=== PATIENT | male | born 1950 | race Caucasian/White ===

== ENCOUNTER 2017-08-30 11:04 | Day surgery (SDC) | payer MEDICARE, MEDICAID ==
[~2017-08-30 11:04] MED LIST: ACET1TAB12 PO; CEPH-571 PO; LISI1TAB11 PO; MEMA5TAB PO; ROSU10TA PO; TRAM50TA2 PO; gadopentetate dimeglumine 7.5 MMOL/15 ML syringe ONE
[2017-08-30] MEDS ORDERED: LIDOcaine 2% 5ml jelly ONE (11:27)
== END 2017-08-30 12:09 | disposition home or self-care (01) ==
LOC: WOUND CARE 11:04
PROVIDERS: ATTEND Surgery
DX: E11.621 Type 2 diabetes mellitus with foot ulcer (principal); L97.521 Non-pressure chronic ulcer of other part of left foot limited to breakdown of skin; E11.622 Type 2 diabetes mellitus with other skin ulcer; L97.821 Non-pressure chronic ulcer of other part of left lower leg limited to breakdown of skin; I77.1 Stricture of artery; I70.248 Atherosclerosis of native arteries of left leg with ulceration of other part of lower leg; E11.69 Type 2 diabetes mellitus with other specified complication; M86.672 Other chronic osteomyelitis, left ankle and foot; I25.10 Atherosclerotic heart disease of native coronary artery without angina pectoris; I70.245 Atherosclerosis of native arteries of left leg with ulceration of other part of foot; J44.9 Chronic obstructive pulmonary disease, unspecified; I10 Essential (primary) hypertension; K21.9 Gastro-esophageal reflux disease without esophagitis; E78.00 Pure hypercholesterolemia, unspecified; M19.90 Unspecified osteoarthritis, unspecified site; I87.2 Venous insufficiency (chronic) (peripheral); F10.10 Alcohol abuse, uncomplicated; F41.9 Anxiety disorder, unspecified; F17.210 Nicotine dependence, cigarettes, uncomplicated; F32.9 Major depressive disorder, single episode, unspecified; F03.90 Unspecified dementia, unspecified severity, without behavioral disturbance, psychotic disturbance, mood disturbance, and anxiety; Z79.84 Long term (current) use of oral hypoglycemic drugs; Z79.4 Long term (current) use of insulin; Z72.89 Other problems related to lifestyle; Z95.1 Presence of aortocoronary bypass graft; Z86.73 Personal history of transient ischemic attack (TIA), and cerebral infarction without residual deficits
CPT/HCPCS: 11043; 97597; A6021; A6206; A9579

== ENCOUNTER 2017-09-06 11:02 | Outpatient (CLI) | payer MEDICARE, MEDICAID ==
[~2017-09-06 11:02] MED LIST changes: -gadopentetate dimeglumine 7.5 MMOL/15 ML syringe ONE
[2017-09-06] MEDS ORDERED: gentamicin 0.1% topical ointment 15gm TP SCH (13:50)
== END 2017-09-06 11:53 | disposition home or self-care (01) ==
LOC: WOUND CARE 11:02
PROVIDERS: ATTEND Surgery
DX: E11.622 Type 2 diabetes mellitus with other skin ulcer (principal); L97.821 Non-pressure chronic ulcer of other part of left lower leg limited to breakdown of skin; E11.621 Type 2 diabetes mellitus with foot ulcer; L97.521 Non-pressure chronic ulcer of other part of left foot limited to breakdown of skin; I25.10 Atherosclerotic heart disease of native coronary artery without angina pectoris; I70.248 Atherosclerosis of native arteries of left leg with ulceration of other part of lower leg; I70.245 Atherosclerosis of native arteries of left leg with ulceration of other part of foot; J44.9 Chronic obstructive pulmonary disease, unspecified; I10 Essential (primary) hypertension; K21.9 Gastro-esophageal reflux disease without esophagitis; E11.69 Type 2 diabetes mellitus with other specified complication; M86.672 Other chronic osteomyelitis, left ankle and foot; E78.00 Pure hypercholesterolemia, unspecified; I77.1 Stricture of artery; M19.90 Unspecified osteoarthritis, unspecified site; I87.2 Venous insufficiency (chronic) (peripheral); F10.10 Alcohol abuse, uncomplicated; F41.9 Anxiety disorder, unspecified; F32.9 Major depressive disorder, single episode, unspecified; F17.210 Nicotine dependence, cigarettes, uncomplicated; F03.90 Unspecified dementia, unspecified severity, without behavioral disturbance, psychotic disturbance, mood disturbance, and anxiety; Z95.1 Presence of aortocoronary bypass graft; Z79.4 Long term (current) use of insulin; Z79.84 Long term (current) use of oral hypoglycemic drugs; Z86.73 Personal history of transient ischemic attack (TIA), and cerebral infarction without residual deficits
CPT/HCPCS: 99211; A6021; A6206; A6449

== ENCOUNTER 2017-09-13 10:48 | Day surgery (SDC) | payer MEDICARE, MEDICAID ==
[2017-09-13] MEDS ORDERED: LIDOcaine 2% 5ml jelly ONE (12:33)
[2017-09-13] MEDS ORDERED: hydrocortisone 1% cream 28gm TP ONE (12:56)
[2017-09-13] MEDS ORDERED: gentamicin 0.1% topical ointment 15gm TP ONE (13:40)
== END 2017-09-13 13:40 | disposition home or self-care (01) ==
LOC: WOUND CARE 10:48
PROVIDERS: ATTEND Surgery
DX: I70.248 Atherosclerosis of native arteries of left leg with ulceration of other part of lower leg (principal); I70.245 Atherosclerosis of native arteries of left leg with ulceration of other part of foot; E11.622 Type 2 diabetes mellitus with other skin ulcer; E11.621 Type 2 diabetes mellitus with foot ulcer; L97.821 Non-pressure chronic ulcer of other part of left lower leg limited to breakdown of skin; L97.521 Non-pressure chronic ulcer of other part of left foot limited to breakdown of skin; I77.1 Stricture of artery; I25.10 Atherosclerotic heart disease of native coronary artery without angina pectoris; J44.9 Chronic obstructive pulmonary disease, unspecified; I10 Essential (primary) hypertension; K21.9 Gastro-esophageal reflux disease without esophagitis; E11.69 Type 2 diabetes mellitus with other specified complication; M86.672 Other chronic osteomyelitis, left ankle and foot; E78.00 Pure hypercholesterolemia, unspecified; M19.90 Unspecified osteoarthritis, unspecified site; F03.90 Unspecified dementia, unspecified severity, without behavioral disturbance, psychotic disturbance, mood disturbance, and anxiety; F10.10 Alcohol abuse, uncomplicated; F32.9 Major depressive disorder, single episode, unspecified; F41.9 Anxiety disorder, unspecified; Z72.89 Other problems related to lifestyle; Z95.1 Presence of aortocoronary bypass graft; Z86.73 Personal history of transient ischemic attack (TIA), and cerebral infarction without residual deficits; Z79.4 Long term (current) use of insulin; Z79.84 Long term (current) use of oral hypoglycemic drugs
CPT/HCPCS: 11043; A4414; A6021; A6206; A6446

== ENCOUNTER 2017-09-20 10:55 | Day surgery (SDC) | payer MEDICARE, MEDICAID ==
[~2017-09-20 10:55] MED LIST changes: -CEPH-571 PO
[2017-09-20] MEDS ORDERED: LIDOcaine 2% 5ml jelly ONE (12:05)
[2017-09-20] MEDS ORDERED: gentamicin 0.1% topical ointment 15gm TP ONE (12:14)
== END 2017-09-20 12:34 | disposition home or self-care (01) ==
LOC: WOUND CARE 10:55
PROVIDERS: ATTEND Surgery
DX: I70.245 Atherosclerosis of native arteries of left leg with ulceration of other part of foot (principal); I70.248 Atherosclerosis of native arteries of left leg with ulceration of other part of lower leg; E11.621 Type 2 diabetes mellitus with foot ulcer; E11.622 Type 2 diabetes mellitus with other skin ulcer; L97.521 Non-pressure chronic ulcer of other part of left foot limited to breakdown of skin; L97.821 Non-pressure chronic ulcer of other part of left lower leg limited to breakdown of skin; I77.1 Stricture of artery; M19.90 Unspecified osteoarthritis, unspecified site; I87.2 Venous insufficiency (chronic) (peripheral); I25.10 Atherosclerotic heart disease of native coronary artery without angina pectoris; J44.9 Chronic obstructive pulmonary disease, unspecified; I10 Essential (primary) hypertension; K21.9 Gastro-esophageal reflux disease without esophagitis; E11.69 Type 2 diabetes mellitus with other specified complication; M86.8X8 Other osteomyelitis, other site; E78.00 Pure hypercholesterolemia, unspecified; F03.90 Unspecified dementia, unspecified severity, without behavioral disturbance, psychotic disturbance, mood disturbance, and anxiety; F41.9 Anxiety disorder, unspecified; F10.10 Alcohol abuse, uncomplicated; F32.9 Major depressive disorder, single episode, unspecified; Z79.4 Long term (current) use of insulin; Z72.89 Other problems related to lifestyle; Z86.73 Personal history of transient ischemic attack (TIA), and cerebral infarction without residual deficits; Z95.1 Presence of aortocoronary bypass graft
CPT/HCPCS: 15275; A6209; A6222; A6446; Q4131

== ENCOUNTER 2017-09-27 11:06 | Outpatient (CLI) | payer MEDICARE, MEDICAID ==
[2017-09-27] MEDS ORDERED: gentamicin 0.1% topical ointment 15gm TP ONE (12:17)
== END 2017-09-27 12:36 | disposition home or self-care (01) ==
LOC: WOUND CARE 11:06
PROVIDERS: ATTEND Surgery
DX: E11.622 Type 2 diabetes mellitus with other skin ulcer (principal); L97.221 Non-pressure chronic ulcer of left calf limited to breakdown of skin; E11.621 Type 2 diabetes mellitus with foot ulcer; L97.521 Non-pressure chronic ulcer of other part of left foot limited to breakdown of skin; I70.242 Atherosclerosis of native arteries of left leg with ulceration of calf; I70.245 Atherosclerosis of native arteries of left leg with ulceration of other part of foot; E11.69 Type 2 diabetes mellitus with other specified complication; M86.672 Other chronic osteomyelitis, left ankle and foot; M86.8X8 Other osteomyelitis, other site; I25.10 Atherosclerotic heart disease of native coronary artery without angina pectoris; J44.9 Chronic obstructive pulmonary disease, unspecified; I10 Essential (primary) hypertension; K21.9 Gastro-esophageal reflux disease without esophagitis; E78.00 Pure hypercholesterolemia, unspecified; I77.1 Stricture of artery; F10.10 Alcohol abuse, uncomplicated; F41.9 Anxiety disorder, unspecified; F17.210 Nicotine dependence, cigarettes, uncomplicated; F03.90 Unspecified dementia, unspecified severity, without behavioral disturbance, psychotic disturbance, mood disturbance, and anxiety; F32.9 Major depressive disorder, single episode, unspecified; Z79.84 Long term (current) use of oral hypoglycemic drugs; Z79.4 Long term (current) use of insulin; Z72.89 Other problems related to lifestyle; Z86.73 Personal history of transient ischemic attack (TIA), and cerebral infarction without residual deficits; Z95.1 Presence of aortocoronary bypass graft
CPT/HCPCS: 99215; A6021; A6206; A6446

== ENCOUNTER 2017-10-04 11:09 | Day surgery (SDC) | payer MEDICARE, MEDICAID ==
[2017-10-04] MEDS ORDERED: LIDOcaine 2% 5ml jelly ONE (11:30)
[2017-10-04] MEDS ORDERED: gentamicin 0.1% topical ointment 15gm TP ONE (11:58)
== END 2017-10-04 12:13 | disposition home or self-care (01) ==
LOC: WOUND CARE 11:09
PROVIDERS: ATTEND Surgery
DX: E11.622 Type 2 diabetes mellitus with other skin ulcer (principal); L97.221 Non-pressure chronic ulcer of left calf limited to breakdown of skin; E11.621 Type 2 diabetes mellitus with foot ulcer; L97.521 Non-pressure chronic ulcer of other part of left foot limited to breakdown of skin; I70.242 Atherosclerosis of native arteries of left leg with ulceration of calf; I70.245 Atherosclerosis of native arteries of left leg with ulceration of other part of foot; E11.69 Type 2 diabetes mellitus with other specified complication; M86.672 Other chronic osteomyelitis, left ankle and foot; M86.8X8 Other osteomyelitis, other site; I25.10 Atherosclerotic heart disease of native coronary artery without angina pectoris; J44.9 Chronic obstructive pulmonary disease, unspecified; I10 Essential (primary) hypertension; K21.9 Gastro-esophageal reflux disease without esophagitis; E78.00 Pure hypercholesterolemia, unspecified; I77.1 Stricture of artery; F10.10 Alcohol abuse, uncomplicated; F41.9 Anxiety disorder, unspecified; F17.210 Nicotine dependence, cigarettes, uncomplicated; F03.90 Unspecified dementia, unspecified severity, without behavioral disturbance, psychotic disturbance, mood disturbance, and anxiety; F32.9 Major depressive disorder, single episode, unspecified; Z79.84 Long term (current) use of oral hypoglycemic drugs; Z79.4 Long term (current) use of insulin; Z72.89 Other problems related to lifestyle; Z86.73 Personal history of transient ischemic attack (TIA), and cerebral infarction without residual deficits; Z95.1 Presence of aortocoronary bypass graft
CPT/HCPCS: 15275; A6021; A6206; A6209; Q4131

== ENCOUNTER 2017-10-11 11:15 | Day surgery (SDC) | payer MEDICARE, MEDICAID ==
[2017-10-11] MEDS ORDERED: LIDOcaine 2% 5ml jelly ONE (11:35)
[2017-10-11] MEDS ORDERED: gentamicin 0.1% topical ointment 15gm TP ONE (12:01)
[2017-10-11] MEDS ORDERED: hydrocortisone 1% cream 28gm TP ONE (12:01)
== END 2017-10-11 12:17 | disposition home or self-care (01) ==
LOC: WOUND CARE 11:15
PROVIDERS: ATTEND Surgery
DX: E11.622 Type 2 diabetes mellitus with other skin ulcer (principal); L97.221 Non-pressure chronic ulcer of left calf limited to breakdown of skin; E11.621 Type 2 diabetes mellitus with foot ulcer; L97.521 Non-pressure chronic ulcer of other part of left foot limited to breakdown of skin; I70.242 Atherosclerosis of native arteries of left leg with ulceration of calf; I70.245 Atherosclerosis of native arteries of left leg with ulceration of other part of foot; E11.69 Type 2 diabetes mellitus with other specified complication; M86.672 Other chronic osteomyelitis, left ankle and foot; M86.8X8 Other osteomyelitis, other site; I25.10 Atherosclerotic heart disease of native coronary artery without angina pectoris; J44.9 Chronic obstructive pulmonary disease, unspecified; I10 Essential (primary) hypertension; K21.9 Gastro-esophageal reflux disease without esophagitis; E78.00 Pure hypercholesterolemia, unspecified; I77.1 Stricture of artery; F10.10 Alcohol abuse, uncomplicated; F41.9 Anxiety disorder, unspecified; F17.210 Nicotine dependence, cigarettes, uncomplicated; F03.90 Unspecified dementia, unspecified severity, without behavioral disturbance, psychotic disturbance, mood disturbance, and anxiety; F32.9 Major depressive disorder, single episode, unspecified; Z79.84 Long term (current) use of oral hypoglycemic drugs; Z79.4 Long term (current) use of insulin; Z72.89 Other problems related to lifestyle; Z86.73 Personal history of transient ischemic attack (TIA), and cerebral infarction without residual deficits; Z95.1 Presence of aortocoronary bypass graft
CPT/HCPCS: 97597; A6021; A6206

== ENCOUNTER 2017-10-18 10:59 | Day surgery (SDC) | payer MEDICARE, MEDICAID ==
[2017-10-18] MEDS ORDERED: LIDOcaine 2% 5ml jelly ONE (11:46)
== END 2017-10-18 12:37 | disposition home or self-care (01) ==
LOC: WOUND CARE 10:59
PROVIDERS: ATTEND Surgery
DX: E11.622 Type 2 diabetes mellitus with other skin ulcer (principal); L97.821 Non-pressure chronic ulcer of other part of left lower leg limited to breakdown of skin; E11.621 Type 2 diabetes mellitus with foot ulcer; L97.521 Non-pressure chronic ulcer of other part of left foot limited to breakdown of skin; I70.242 Atherosclerosis of native arteries of left leg with ulceration of calf; I70.245 Atherosclerosis of native arteries of left leg with ulceration of other part of foot; E11.69 Type 2 diabetes mellitus with other specified complication; M86.672 Other chronic osteomyelitis, left ankle and foot; M86.8X8 Other osteomyelitis, other site; I25.10 Atherosclerotic heart disease of native coronary artery without angina pectoris; J44.9 Chronic obstructive pulmonary disease, unspecified; I10 Essential (primary) hypertension; K21.9 Gastro-esophageal reflux disease without esophagitis; E78.00 Pure hypercholesterolemia, unspecified; I77.1 Stricture of artery; F10.10 Alcohol abuse, uncomplicated; F41.9 Anxiety disorder, unspecified; F17.210 Nicotine dependence, cigarettes, uncomplicated; F03.90 Unspecified dementia, unspecified severity, without behavioral disturbance, psychotic disturbance, mood disturbance, and anxiety; F32.9 Major depressive disorder, single episode, unspecified; Z79.84 Long term (current) use of oral hypoglycemic drugs; Z79.4 Long term (current) use of insulin; Z72.89 Other problems related to lifestyle; Z86.73 Personal history of transient ischemic attack (TIA), and cerebral infarction without residual deficits; Z95.1 Presence of aortocoronary bypass graft
CPT/HCPCS: 15275; A6206; A6209; Q4131; A6250

== ENCOUNTER 2017-10-25 11:05 | Day surgery (SDC) | payer MEDICARE, MEDICAID ==
[2017-10-25] MEDS ORDERED: LIDOcaine 2% 5ml jelly ONE (11:27)
== END 2017-10-25 12:05 | disposition home or self-care (01) ==
LOC: WOUND CARE 11:05
PROVIDERS: ATTEND Surgery
DX: E11.622 Type 2 diabetes mellitus with other skin ulcer (principal); L97.821 Non-pressure chronic ulcer of other part of left lower leg limited to breakdown of skin; E11.621 Type 2 diabetes mellitus with foot ulcer; L97.521 Non-pressure chronic ulcer of other part of left foot limited to breakdown of skin; I70.242 Atherosclerosis of native arteries of left leg with ulceration of calf; I70.245 Atherosclerosis of native arteries of left leg with ulceration of other part of foot; E11.69 Type 2 diabetes mellitus with other specified complication; M86.672 Other chronic osteomyelitis, left ankle and foot; M86.8X8 Other osteomyelitis, other site; I25.10 Atherosclerotic heart disease of native coronary artery without angina pectoris; J44.9 Chronic obstructive pulmonary disease, unspecified; I10 Essential (primary) hypertension; K21.9 Gastro-esophageal reflux disease without esophagitis; E78.00 Pure hypercholesterolemia, unspecified; I77.1 Stricture of artery; F10.10 Alcohol abuse, uncomplicated; F41.9 Anxiety disorder, unspecified; F17.210 Nicotine dependence, cigarettes, uncomplicated; F03.90 Unspecified dementia, unspecified severity, without behavioral disturbance, psychotic disturbance, mood disturbance, and anxiety; F32.9 Major depressive disorder, single episode, unspecified; Z79.84 Long term (current) use of oral hypoglycemic drugs; Z79.4 Long term (current) use of insulin; Z72.89 Other problems related to lifestyle; Z86.73 Personal history of transient ischemic attack (TIA), and cerebral infarction without residual deficits; Z95.1 Presence of aortocoronary bypass graft
CPT/HCPCS: 97597; A6206

== ENCOUNTER 2017-11-01 11:05 | Day surgery (SDC) | payer MEDICARE, MEDICAID ==
[2017-11-01] MEDS ORDERED: LIDOcaine 2% 5ml jelly ONE (11:34)
== END 2017-11-01 12:50 | disposition home or self-care (01) ==
LOC: WOUND CARE 11:05
PROVIDERS: ATTEND Surgery
DX: E11.622 Type 2 diabetes mellitus with other skin ulcer (principal); L97.821 Non-pressure chronic ulcer of other part of left lower leg limited to breakdown of skin; E11.621 Type 2 diabetes mellitus with foot ulcer; L97.521 Non-pressure chronic ulcer of other part of left foot limited to breakdown of skin; E11.69 Type 2 diabetes mellitus with other specified complication; M86.672 Other chronic osteomyelitis, left ankle and foot; M86.8X8 Other osteomyelitis, other site; I25.10 Atherosclerotic heart disease of native coronary artery without angina pectoris; J44.9 Chronic obstructive pulmonary disease, unspecified; I10 Essential (primary) hypertension; K21.9 Gastro-esophageal reflux disease without esophagitis; E78.00 Pure hypercholesterolemia, unspecified; I77.1 Stricture of artery; F10.10 Alcohol abuse, uncomplicated; F41.9 Anxiety disorder, unspecified; F17.210 Nicotine dependence, cigarettes, uncomplicated; F03.90 Unspecified dementia, unspecified severity, without behavioral disturbance, psychotic disturbance, mood disturbance, and anxiety; F32.9 Major depressive disorder, single episode, unspecified; Z79.84 Long term (current) use of oral hypoglycemic drugs; Z79.4 Long term (current) use of insulin; Z72.89 Other problems related to lifestyle; Z86.73 Personal history of transient ischemic attack (TIA), and cerebral infarction without residual deficits; Z95.1 Presence of aortocoronary bypass graft
CPT/HCPCS: 97597; A6021; A6206

== ENCOUNTER 2017-11-06 11:07 | Day surgery (SDC) | payer MEDICARE, MEDICAID ==
[2017-11-06] MEDS ORDERED: LIDOcaine 2% 5ml jelly ONE (11:31)
[2017-11-06] MEDS ORDERED: gentamicin 0.1% topical ointment 15gm TP ONE (12:25)
== END 2017-11-06 12:51 | disposition home or self-care (01) ==
LOC: WOUND CARE 11:07
PROVIDERS: ATTEND Surgery
DX: E11.622 Type 2 diabetes mellitus with other skin ulcer (principal); L97.821 Non-pressure chronic ulcer of other part of left lower leg limited to breakdown of skin; E11.621 Type 2 diabetes mellitus with foot ulcer; L97.521 Non-pressure chronic ulcer of other part of left foot limited to breakdown of skin; E11.69 Type 2 diabetes mellitus with other specified complication; M86.672 Other chronic osteomyelitis, left ankle and foot; M86.8X8 Other osteomyelitis, other site; I25.10 Atherosclerotic heart disease of native coronary artery without angina pectoris; J44.9 Chronic obstructive pulmonary disease, unspecified; I10 Essential (primary) hypertension; K21.9 Gastro-esophageal reflux disease without esophagitis; E78.00 Pure hypercholesterolemia, unspecified; I77.1 Stricture of artery; F10.10 Alcohol abuse, uncomplicated; F41.9 Anxiety disorder, unspecified; F17.210 Nicotine dependence, cigarettes, uncomplicated; F03.90 Unspecified dementia, unspecified severity, without behavioral disturbance, psychotic disturbance, mood disturbance, and anxiety; F32.9 Major depressive disorder, single episode, unspecified; Z79.84 Long term (current) use of oral hypoglycemic drugs; Z79.4 Long term (current) use of insulin; Z72.89 Other problems related to lifestyle; Z86.73 Personal history of transient ischemic attack (TIA), and cerebral infarction without residual deficits; Z95.1 Presence of aortocoronary bypass graft
CPT/HCPCS: 97597; A4414; A6206; A6222; A6446

== ENCOUNTER 2017-11-15 11:08 | Outpatient (CLI) | payer MEDICARE, MEDICAID ==
[2017-11-15] MEDS ORDERED: hydrocortisone 1% cream 28gm TP ONE (12:22)
== END 2017-11-15 12:38 | disposition home or self-care (01) ==
LOC: WOUND CARE 11:08
PROVIDERS: ATTEND Surgery
DX: E11.622 Type 2 diabetes mellitus with other skin ulcer (principal); L97.821 Non-pressure chronic ulcer of other part of left lower leg limited to breakdown of skin; E11.621 Type 2 diabetes mellitus with foot ulcer; L97.521 Non-pressure chronic ulcer of other part of left foot limited to breakdown of skin; E11.69 Type 2 diabetes mellitus with other specified complication; M86.672 Other chronic osteomyelitis, left ankle and foot; M86.8X8 Other osteomyelitis, other site; I25.10 Atherosclerotic heart disease of native coronary artery without angina pectoris; J44.9 Chronic obstructive pulmonary disease, unspecified; I10 Essential (primary) hypertension; K21.9 Gastro-esophageal reflux disease without esophagitis; E78.00 Pure hypercholesterolemia, unspecified; I77.1 Stricture of artery; F10.10 Alcohol abuse, uncomplicated; F41.9 Anxiety disorder, unspecified; F17.210 Nicotine dependence, cigarettes, uncomplicated; F03.90 Unspecified dementia, unspecified severity, without behavioral disturbance, psychotic disturbance, mood disturbance, and anxiety; F32.9 Major depressive disorder, single episode, unspecified; Z79.84 Long term (current) use of oral hypoglycemic drugs; Z79.4 Long term (current) use of insulin; Z72.89 Other problems related to lifestyle; Z86.73 Personal history of transient ischemic attack (TIA), and cerebral infarction without residual deficits; Z95.1 Presence of aortocoronary bypass graft
CPT/HCPCS: 99215; A6206

== ENCOUNTER 2017-11-29 11:02 | Day surgery (SDC) | payer MEDICARE, MEDICAID ==
[2017-11-29] MEDS ORDERED: LIDOcaine 2% 5ml jelly ONE (11:35)
== END 2017-11-29 12:28 | disposition home or self-care (01) ==
LOC: WOUND CARE 11:02
PROVIDERS: ATTEND Surgery
DX: E11.622 Type 2 diabetes mellitus with other skin ulcer (principal); L97.821 Non-pressure chronic ulcer of other part of left lower leg limited to breakdown of skin; E11.621 Type 2 diabetes mellitus with foot ulcer; L97.521 Non-pressure chronic ulcer of other part of left foot limited to breakdown of skin; E11.69 Type 2 diabetes mellitus with other specified complication; M86.672 Other chronic osteomyelitis, left ankle and foot; M86.8X8 Other osteomyelitis, other site; I25.10 Atherosclerotic heart disease of native coronary artery without angina pectoris; J44.9 Chronic obstructive pulmonary disease, unspecified; I10 Essential (primary) hypertension; K21.9 Gastro-esophageal reflux disease without esophagitis; E78.00 Pure hypercholesterolemia, unspecified; I77.1 Stricture of artery; F10.10 Alcohol abuse, uncomplicated; F41.9 Anxiety disorder, unspecified; F17.210 Nicotine dependence, cigarettes, uncomplicated; F03.90 Unspecified dementia, unspecified severity, without behavioral disturbance, psychotic disturbance, mood disturbance, and anxiety; F32.9 Major depressive disorder, single episode, unspecified; Z79.84 Long term (current) use of oral hypoglycemic drugs; Z79.4 Long term (current) use of insulin; Z72.89 Other problems related to lifestyle; Z86.73 Personal history of transient ischemic attack (TIA), and cerebral infarction without residual deficits; Z95.1 Presence of aortocoronary bypass graft
CPT/HCPCS: 15271; 15275; A6196; A6209; A6222; Q4131; A6250

== ENCOUNTER 2017-12-06 11:02 | Outpatient (CLI) | payer MEDICARE, MEDICAID ==
[~2017-12-06 11:02] MED LIST changes: -ACET1TAB12 PO
[2017-12-06] MEDS ORDERED: gentamicin 0.1% topical ointment 15gm TP ONE (12:11)
== END 2017-12-06 13:00 | disposition home or self-care (01) ==
LOC: WOUND CARE 11:02
PROVIDERS: ATTEND Surgery
DX: E11.622 Type 2 diabetes mellitus with other skin ulcer (principal); L97.821 Non-pressure chronic ulcer of other part of left lower leg limited to breakdown of skin; E11.621 Type 2 diabetes mellitus with foot ulcer; L97.521 Non-pressure chronic ulcer of other part of left foot limited to breakdown of skin; E11.69 Type 2 diabetes mellitus with other specified complication; M86.672 Other chronic osteomyelitis, left ankle and foot; M86.8X8 Other osteomyelitis, other site; I25.10 Atherosclerotic heart disease of native coronary artery without angina pectoris; J44.9 Chronic obstructive pulmonary disease, unspecified; I10 Essential (primary) hypertension; K21.9 Gastro-esophageal reflux disease without esophagitis; E78.00 Pure hypercholesterolemia, unspecified; I77.1 Stricture of artery; F10.10 Alcohol abuse, uncomplicated; F41.9 Anxiety disorder, unspecified; F17.210 Nicotine dependence, cigarettes, uncomplicated; F03.90 Unspecified dementia, unspecified severity, without behavioral disturbance, psychotic disturbance, mood disturbance, and anxiety; F32.9 Major depressive disorder, single episode, unspecified; Z79.84 Long term (current) use of oral hypoglycemic drugs; Z79.4 Long term (current) use of insulin; Z72.89 Other problems related to lifestyle; Z86.73 Personal history of transient ischemic attack (TIA), and cerebral infarction without residual deficits; Z95.1 Presence of aortocoronary bypass graft
CPT/HCPCS: 99215; A6222

== ENCOUNTER 2017-12-13 11:04 | Outpatient (CLI) | payer MEDICARE, MEDICAID | END 2017-12-13 12:27 | disposition home or self-care (01) | LOC: WOUND CARE 11:04 | PROVIDERS: ATTEND Surgery | DX: E11.622 Type 2 diabetes mellitus with other skin ulcer (principal); L97.821 Non-pressure chronic ulcer of other part of left lower leg limited to breakdown of skin; E11.621 Type 2 diabetes mellitus with foot ulcer; L97.521 Non-pressure chronic ulcer of other part of left foot limited to breakdown of skin; E11.69 Type 2 diabetes mellitus with other specified complication; M86.672 Other chronic osteomyelitis, left ankle and foot; M86.8X8 Other osteomyelitis, other site; I25.10 Atherosclerotic heart disease of native coronary artery without angina pectoris; J44.9 Chronic obstructive pulmonary disease, unspecified; I10 Essential (primary) hypertension; K21.9 Gastro-esophageal reflux disease without esophagitis; E78.00 Pure hypercholesterolemia, unspecified; I77.1 Stricture of artery; F10.10 Alcohol abuse, uncomplicated; F41.9 Anxiety disorder, unspecified; F17.210 Nicotine dependence, cigarettes, uncomplicated; F03.90 Unspecified dementia, unspecified severity, without behavioral disturbance, psychotic disturbance, mood disturbance, and anxiety; F32.9 Major depressive disorder, single episode, unspecified; Z79.84 Long term (current) use of oral hypoglycemic drugs; Z79.4 Long term (current) use of insulin; Z72.89 Other problems related to lifestyle; Z86.73 Personal history of transient ischemic attack (TIA), and cerebral infarction without residual deficits; Z95.1 Presence of aortocoronary bypass graft | CPT/HCPCS: 99215; A6021 ==

== ENCOUNTER 2017-12-20 11:04 | Day surgery (SDC) | payer MEDICARE, MEDICAID | END 2017-12-20 13:03 | disposition home or self-care (01) | LOC: WOUND CARE 11:04 | PROVIDERS: ATTEND Surgery | DX: E11.622 Type 2 diabetes mellitus with other skin ulcer (principal); I70.248 Atherosclerosis of native arteries of left leg with ulceration of other part of lower leg; L97.821 Non-pressure chronic ulcer of other part of left lower leg limited to breakdown of skin; E11.621 Type 2 diabetes mellitus with foot ulcer; L97.521 Non-pressure chronic ulcer of other part of left foot limited to breakdown of skin; E11.69 Type 2 diabetes mellitus with other specified complication; M86.672 Other chronic osteomyelitis, left ankle and foot; M86.8X8 Other osteomyelitis, other site; I25.10 Atherosclerotic heart disease of native coronary artery without angina pectoris; J44.9 Chronic obstructive pulmonary disease, unspecified; I10 Essential (primary) hypertension; K21.9 Gastro-esophageal reflux disease without esophagitis; E78.00 Pure hypercholesterolemia, unspecified; I77.1 Stricture of artery; F10.10 Alcohol abuse, uncomplicated; F41.9 Anxiety disorder, unspecified; F17.210 Nicotine dependence, cigarettes, uncomplicated; F03.90 Unspecified dementia, unspecified severity, without behavioral disturbance, psychotic disturbance, mood disturbance, and anxiety; F32.9 Major depressive disorder, single episode, unspecified; Z79.84 Long term (current) use of oral hypoglycemic drugs; Z79.4 Long term (current) use of insulin; Z72.89 Other problems related to lifestyle; Z86.73 Personal history of transient ischemic attack (TIA), and cerebral infarction without residual deficits; Z95.1 Presence of aortocoronary bypass graft | CPT/HCPCS: 15271; A6021; A6206; A6209; Q4132 ==

== ENCOUNTER 2017-12-27 11:00 | Outpatient (CLI) | payer MEDICARE, MEDICAID ==
[2017-12-27] MEDS ORDERED: gentamicin 0.1% topical ointment 15gm TP SCH (12:55)
== END 2017-12-27 12:37 | disposition home or self-care (01) ==
LOC: WOUND CARE 11:00 → EDSTATUS 11:00 → WOUND CARE 12:37
PROVIDERS: ATTEND Surgery
DX: E11.622 Type 2 diabetes mellitus with other skin ulcer (principal); I70.248 Atherosclerosis of native arteries of left leg with ulceration of other part of lower leg; L97.821 Non-pressure chronic ulcer of other part of left lower leg limited to breakdown of skin; E11.621 Type 2 diabetes mellitus with foot ulcer; L97.521 Non-pressure chronic ulcer of other part of left foot limited to breakdown of skin; E11.69 Type 2 diabetes mellitus with other specified complication; M86.672 Other chronic osteomyelitis, left ankle and foot; I25.10 Atherosclerotic heart disease of native coronary artery without angina pectoris; J44.9 Chronic obstructive pulmonary disease, unspecified; I10 Essential (primary) hypertension; K21.9 Gastro-esophageal reflux disease without esophagitis; E78.00 Pure hypercholesterolemia, unspecified; I77.1 Stricture of artery; F10.10 Alcohol abuse, uncomplicated; F41.9 Anxiety disorder, unspecified; F17.210 Nicotine dependence, cigarettes, uncomplicated; F03.90 Unspecified dementia, unspecified severity, without behavioral disturbance, psychotic disturbance, mood disturbance, and anxiety; F32.9 Major depressive disorder, single episode, unspecified; Z79.84 Long term (current) use of oral hypoglycemic drugs; Z79.4 Long term (current) use of insulin; Z72.89 Other problems related to lifestyle; Z86.73 Personal history of transient ischemic attack (TIA), and cerebral infarction without residual deficits; Z95.1 Presence of aortocoronary bypass graft
CPT/HCPCS: 99215

== ENCOUNTER 2018-01-03 11:04 | Day surgery (SDC) | payer MEDICARE, MEDICAID ==
[2018-01-03] MEDS ORDERED: LIDOcaine 2% 5ml jelly ONE (11:18)
[2018-01-03] MEDS ORDERED: nystatin/triamcinolone cream 15gm TP ONE (12:05)
== END 2018-01-03 13:47 | disposition home or self-care (01) ==
LOC: WOUND CARE 11:04
PROVIDERS: ATTEND Surgery
DX: E11.622 Type 2 diabetes mellitus with other skin ulcer (principal); I70.248 Atherosclerosis of native arteries of left leg with ulceration of other part of lower leg; L97.821 Non-pressure chronic ulcer of other part of left lower leg limited to breakdown of skin; E11.621 Type 2 diabetes mellitus with foot ulcer; L97.521 Non-pressure chronic ulcer of other part of left foot limited to breakdown of skin; E11.69 Type 2 diabetes mellitus with other specified complication; M86.672 Other chronic osteomyelitis, left ankle and foot; I25.10 Atherosclerotic heart disease of native coronary artery without angina pectoris; J44.9 Chronic obstructive pulmonary disease, unspecified; I10 Essential (primary) hypertension; K21.9 Gastro-esophageal reflux disease without esophagitis; E78.00 Pure hypercholesterolemia, unspecified; I77.1 Stricture of artery; F10.10 Alcohol abuse, uncomplicated; F41.9 Anxiety disorder, unspecified; F17.210 Nicotine dependence, cigarettes, uncomplicated; F03.90 Unspecified dementia, unspecified severity, without behavioral disturbance, psychotic disturbance, mood disturbance, and anxiety; F32.9 Major depressive disorder, single episode, unspecified; Z79.84 Long term (current) use of oral hypoglycemic drugs; Z79.4 Long term (current) use of insulin; Z86.73 Personal history of transient ischemic attack (TIA), and cerebral infarction without residual deficits; Z95.1 Presence of aortocoronary bypass graft
CPT/HCPCS: 15271; 15275; A6021; Q4133

== ENCOUNTER 2018-01-10 11:13 | Outpatient (CLI) | payer MEDICARE, MEDICAID ==
[2018-01-10] MEDS ORDERED: LIDOcaine 2% 5ml jelly ONE (11:35)
== END 2018-01-10 12:30 | disposition home or self-care (01) ==
LOC: WOUND CARE 11:13
PROVIDERS: ATTEND Surgery
DX: E11.622 Type 2 diabetes mellitus with other skin ulcer (principal); I70.248 Atherosclerosis of native arteries of left leg with ulceration of other part of lower leg; L97.821 Non-pressure chronic ulcer of other part of left lower leg limited to breakdown of skin; L97.321 Non-pressure chronic ulcer of left ankle limited to breakdown of skin; E11.621 Type 2 diabetes mellitus with foot ulcer; L97.521 Non-pressure chronic ulcer of other part of left foot limited to breakdown of skin; E11.69 Type 2 diabetes mellitus with other specified complication; M86.672 Other chronic osteomyelitis, left ankle and foot; I25.10 Atherosclerotic heart disease of native coronary artery without angina pectoris; J44.9 Chronic obstructive pulmonary disease, unspecified; I10 Essential (primary) hypertension; K21.9 Gastro-esophageal reflux disease without esophagitis; E78.00 Pure hypercholesterolemia, unspecified; I77.1 Stricture of artery; F10.10 Alcohol abuse, uncomplicated; F41.9 Anxiety disorder, unspecified; F17.210 Nicotine dependence, cigarettes, uncomplicated; F03.90 Unspecified dementia, unspecified severity, without behavioral disturbance, psychotic disturbance, mood disturbance, and anxiety; F32.9 Major depressive disorder, single episode, unspecified; Z79.84 Long term (current) use of oral hypoglycemic drugs; Z79.4 Long term (current) use of insulin; Z86.73 Personal history of transient ischemic attack (TIA), and cerebral infarction without residual deficits; Z95.1 Presence of aortocoronary bypass graft
CPT/HCPCS: 99215; A6021; A6206

== ENCOUNTER 2018-01-17 11:04 | Day surgery (SDC) | payer MEDICARE, MEDICAID ==
[2018-01-17] MEDS ORDERED: LIDOcaine 2% 5ml jelly ONE (12:12)
== END 2018-01-17 12:58 | disposition home or self-care (01) ==
LOC: WOUND CARE 11:04
PROVIDERS: ATTEND Surgery
DX: E11.622 Type 2 diabetes mellitus with other skin ulcer (principal); I70.248 Atherosclerosis of native arteries of left leg with ulceration of other part of lower leg; L97.821 Non-pressure chronic ulcer of other part of left lower leg limited to breakdown of skin; L97.321 Non-pressure chronic ulcer of left ankle limited to breakdown of skin; E11.621 Type 2 diabetes mellitus with foot ulcer; L97.521 Non-pressure chronic ulcer of other part of left foot limited to breakdown of skin; E11.69 Type 2 diabetes mellitus with other specified complication; M86.672 Other chronic osteomyelitis, left ankle and foot; I25.10 Atherosclerotic heart disease of native coronary artery without angina pectoris; J44.9 Chronic obstructive pulmonary disease, unspecified; I10 Essential (primary) hypertension; K21.9 Gastro-esophageal reflux disease without esophagitis; E78.00 Pure hypercholesterolemia, unspecified; I77.1 Stricture of artery; F10.10 Alcohol abuse, uncomplicated; F41.9 Anxiety disorder, unspecified; F17.210 Nicotine dependence, cigarettes, uncomplicated; F03.90 Unspecified dementia, unspecified severity, without behavioral disturbance, psychotic disturbance, mood disturbance, and anxiety; F32.9 Major depressive disorder, single episode, unspecified; Z79.84 Long term (current) use of oral hypoglycemic drugs; Z79.4 Long term (current) use of insulin; Z86.73 Personal history of transient ischemic attack (TIA), and cerebral infarction without residual deficits; Z95.1 Presence of aortocoronary bypass graft
CPT/HCPCS: 97597; A6021; A6206

== ENCOUNTER 2018-01-24 11:07 | Day surgery (SDC) | payer MEDICARE, MEDICAID | END 2018-01-24 12:29 | disposition home or self-care (01) | LOC: WOUND CARE 11:07 | PROVIDERS: ATTEND Surgery | DX: E11.622 Type 2 diabetes mellitus with other skin ulcer (principal); I70.248 Atherosclerosis of native arteries of left leg with ulceration of other part of lower leg; L97.821 Non-pressure chronic ulcer of other part of left lower leg limited to breakdown of skin; L97.321 Non-pressure chronic ulcer of left ankle limited to breakdown of skin; E11.69 Type 2 diabetes mellitus with other specified complication; M86.672 Other chronic osteomyelitis, left ankle and foot; I25.10 Atherosclerotic heart disease of native coronary artery without angina pectoris; J44.9 Chronic obstructive pulmonary disease, unspecified; I10 Essential (primary) hypertension; K21.9 Gastro-esophageal reflux disease without esophagitis; E78.00 Pure hypercholesterolemia, unspecified; I77.1 Stricture of artery; F10.10 Alcohol abuse, uncomplicated; F41.9 Anxiety disorder, unspecified; F17.210 Nicotine dependence, cigarettes, uncomplicated; F03.90 Unspecified dementia, unspecified severity, without behavioral disturbance, psychotic disturbance, mood disturbance, and anxiety; F32.9 Major depressive disorder, single episode, unspecified; Z79.84 Long term (current) use of oral hypoglycemic drugs; Z79.4 Long term (current) use of insulin; Z86.73 Personal history of transient ischemic attack (TIA), and cerebral infarction without residual deficits; Z95.1 Presence of aortocoronary bypass graft | CPT/HCPCS: 97597; A6021; A6206 ==

== ENCOUNTER 2018-01-31 11:06 | Day surgery (SDC) | payer MEDICARE, MEDICAID | END 2018-01-31 12:42 | disposition home or self-care (01) | LOC: WOUND CARE 11:06 | PROVIDERS: ATTEND Surgery | DX: E11.622 Type 2 diabetes mellitus with other skin ulcer (principal); I70.248 Atherosclerosis of native arteries of left leg with ulceration of other part of lower leg; L97.821 Non-pressure chronic ulcer of other part of left lower leg limited to breakdown of skin; L97.321 Non-pressure chronic ulcer of left ankle limited to breakdown of skin; E11.621 Type 2 diabetes mellitus with foot ulcer; L97.521 Non-pressure chronic ulcer of other part of left foot limited to breakdown of skin; E11.69 Type 2 diabetes mellitus with other specified complication; M86.672 Other chronic osteomyelitis, left ankle and foot; I25.10 Atherosclerotic heart disease of native coronary artery without angina pectoris; J44.9 Chronic obstructive pulmonary disease, unspecified; I10 Essential (primary) hypertension; K21.9 Gastro-esophageal reflux disease without esophagitis; E78.00 Pure hypercholesterolemia, unspecified; I77.1 Stricture of artery; F10.10 Alcohol abuse, uncomplicated; F41.9 Anxiety disorder, unspecified; F17.210 Nicotine dependence, cigarettes, uncomplicated; F03.90 Unspecified dementia, unspecified severity, without behavioral disturbance, psychotic disturbance, mood disturbance, and anxiety; F32.9 Major depressive disorder, single episode, unspecified; Z79.84 Long term (current) use of oral hypoglycemic drugs; Z79.4 Long term (current) use of insulin; Z86.73 Personal history of transient ischemic attack (TIA), and cerebral infarction without residual deficits; Z95.1 Presence of aortocoronary bypass graft | CPT/HCPCS: 97597; A6021; A6206 ==

== ENCOUNTER 2018-02-07 11:02 | Day surgery (SDC) | payer MEDICARE, MEDICAID ==
[2018-02-07] MEDS ORDERED: LIDOcaine 2% 5ml jelly ONE (11:58)
[2018-02-07] MEDS ORDERED: hydrocortisone 1% cream 28gm TP ONE (12:55)
== END 2018-02-07 13:12 | disposition home or self-care (01) ==
LOC: WOUND CARE 11:02
PROVIDERS: ATTEND Surgery
DX: E11.622 Type 2 diabetes mellitus with other skin ulcer (principal); I70.248 Atherosclerosis of native arteries of left leg with ulceration of other part of lower leg; L97.821 Non-pressure chronic ulcer of other part of left lower leg limited to breakdown of skin; L97.321 Non-pressure chronic ulcer of left ankle limited to breakdown of skin; E11.621 Type 2 diabetes mellitus with foot ulcer; L97.521 Non-pressure chronic ulcer of other part of left foot limited to breakdown of skin; E11.69 Type 2 diabetes mellitus with other specified complication; M86.672 Other chronic osteomyelitis, left ankle and foot; I25.10 Atherosclerotic heart disease of native coronary artery without angina pectoris; J44.9 Chronic obstructive pulmonary disease, unspecified; I10 Essential (primary) hypertension; K21.9 Gastro-esophageal reflux disease without esophagitis; E78.00 Pure hypercholesterolemia, unspecified; I77.1 Stricture of artery; F10.10 Alcohol abuse, uncomplicated; F41.9 Anxiety disorder, unspecified; F17.210 Nicotine dependence, cigarettes, uncomplicated; F03.90 Unspecified dementia, unspecified severity, without behavioral disturbance, psychotic disturbance, mood disturbance, and anxiety; F32.9 Major depressive disorder, single episode, unspecified; Z79.84 Long term (current) use of oral hypoglycemic drugs; Z79.4 Long term (current) use of insulin; Z86.73 Personal history of transient ischemic attack (TIA), and cerebral infarction without residual deficits; Z95.1 Presence of aortocoronary bypass graft
CPT/HCPCS: 15271; A6196; A6209; A6222; Q4131; A6250

== ENCOUNTER 2018-02-14 11:08 | Outpatient (CLI) | payer MEDICARE, MEDICAID ==
[2018-02-14] MEDS: LIDOcaine 2% 5ml jelly ONE (11:31)
== END 2018-02-14 12:35 | disposition home or self-care (01) ==
LOC: WOUND CARE 11:08
PROVIDERS: ATTEND Surgery
DX: E11.622 Type 2 diabetes mellitus with other skin ulcer (principal); I70.248 Atherosclerosis of native arteries of left leg with ulceration of other part of lower leg; L97.821 Non-pressure chronic ulcer of other part of left lower leg limited to breakdown of skin; L97.321 Non-pressure chronic ulcer of left ankle limited to breakdown of skin; E11.621 Type 2 diabetes mellitus with foot ulcer; L97.521 Non-pressure chronic ulcer of other part of left foot limited to breakdown of skin; E11.69 Type 2 diabetes mellitus with other specified complication; M86.672 Other chronic osteomyelitis, left ankle and foot; I25.10 Atherosclerotic heart disease of native coronary artery without angina pectoris; J44.9 Chronic obstructive pulmonary disease, unspecified; I10 Essential (primary) hypertension; K21.9 Gastro-esophageal reflux disease without esophagitis; E78.00 Pure hypercholesterolemia, unspecified; I77.1 Stricture of artery; F10.10 Alcohol abuse, uncomplicated; F41.9 Anxiety disorder, unspecified; F17.210 Nicotine dependence, cigarettes, uncomplicated; F03.90 Unspecified dementia, unspecified severity, without behavioral disturbance, psychotic disturbance, mood disturbance, and anxiety; F32.9 Major depressive disorder, single episode, unspecified; Z79.84 Long term (current) use of oral hypoglycemic drugs; Z79.4 Long term (current) use of insulin; Z86.73 Personal history of transient ischemic attack (TIA), and cerebral infarction without residual deficits; Z95.1 Presence of aortocoronary bypass graft
CPT/HCPCS: 99215; A6021; A6196; A6206

== ENCOUNTER 2018-02-21 11:10 | Day surgery (SDC) | payer MEDICARE, MEDICAID ==
[2018-02-21] MEDS ORDERED: LIDOcaine 2% 5ml jelly ONE (11:48)
== END 2018-02-21 12:33 | disposition home or self-care (01) ==
LOC: WOUND CARE 11:10
PROVIDERS: ATTEND Surgery
DX: E11.622 Type 2 diabetes mellitus with other skin ulcer (principal); I70.248 Atherosclerosis of native arteries of left leg with ulceration of other part of lower leg; L97.821 Non-pressure chronic ulcer of other part of left lower leg limited to breakdown of skin; L97.321 Non-pressure chronic ulcer of left ankle limited to breakdown of skin; E11.621 Type 2 diabetes mellitus with foot ulcer; L97.521 Non-pressure chronic ulcer of other part of left foot limited to breakdown of skin; E11.69 Type 2 diabetes mellitus with other specified complication; M86.672 Other chronic osteomyelitis, left ankle and foot; I25.10 Atherosclerotic heart disease of native coronary artery without angina pectoris; J44.9 Chronic obstructive pulmonary disease, unspecified; I10 Essential (primary) hypertension; K21.9 Gastro-esophageal reflux disease without esophagitis; E78.00 Pure hypercholesterolemia, unspecified; I77.1 Stricture of artery; F10.10 Alcohol abuse, uncomplicated; F41.9 Anxiety disorder, unspecified; F17.210 Nicotine dependence, cigarettes, uncomplicated; F03.90 Unspecified dementia, unspecified severity, without behavioral disturbance, psychotic disturbance, mood disturbance, and anxiety; F32.9 Major depressive disorder, single episode, unspecified; Z79.84 Long term (current) use of oral hypoglycemic drugs; Z79.4 Long term (current) use of insulin; Z86.73 Personal history of transient ischemic attack (TIA), and cerebral infarction without residual deficits; Z95.1 Presence of aortocoronary bypass graft
CPT/HCPCS: 15271; A6021; A6196; A6206; A6209; A6222; Q4131; A6250

== ENCOUNTER 2018-02-28 11:03 | Day surgery (SDC) | payer MEDICARE, MEDICAID ==
[2018-02-28] MEDS ORDERED: LIDOcaine 2% 5ml jelly ONE (12:26)
== END 2018-02-28 12:57 | disposition home or self-care (01) ==
LOC: WOUND CARE 11:03
PROVIDERS: ATTEND Surgery
DX: E11.622 Type 2 diabetes mellitus with other skin ulcer (principal); I70.248 Atherosclerosis of native arteries of left leg with ulceration of other part of lower leg; L97.821 Non-pressure chronic ulcer of other part of left lower leg limited to breakdown of skin; L97.321 Non-pressure chronic ulcer of left ankle limited to breakdown of skin; E11.621 Type 2 diabetes mellitus with foot ulcer; L97.521 Non-pressure chronic ulcer of other part of left foot limited to breakdown of skin; E11.69 Type 2 diabetes mellitus with other specified complication; M86.672 Other chronic osteomyelitis, left ankle and foot; I25.10 Atherosclerotic heart disease of native coronary artery without angina pectoris; J44.9 Chronic obstructive pulmonary disease, unspecified; I10 Essential (primary) hypertension; K21.9 Gastro-esophageal reflux disease without esophagitis; E78.00 Pure hypercholesterolemia, unspecified; I77.1 Stricture of artery; F10.10 Alcohol abuse, uncomplicated; F41.9 Anxiety disorder, unspecified; F17.210 Nicotine dependence, cigarettes, uncomplicated; F03.90 Unspecified dementia, unspecified severity, without behavioral disturbance, psychotic disturbance, mood disturbance, and anxiety; F32.9 Major depressive disorder, single episode, unspecified; Z79.84 Long term (current) use of oral hypoglycemic drugs; Z79.4 Long term (current) use of insulin; Z86.73 Personal history of transient ischemic attack (TIA), and cerebral infarction without residual deficits; Z95.1 Presence of aortocoronary bypass graft
CPT/HCPCS: 15271; A6209; A6222; Q4131; A6250

== ENCOUNTER 2018-03-04 10:45 | Day surgery (SDC) | payer MEDICARE, MEDICAID ==
[2018-03-04] MEDS ORDERED: LIDOcaine 2% 5ml jelly ONE (11:06)
== END 2018-03-04 11:42 | disposition home or self-care (01) ==
LOC: WOUND CARE 10:45
PROVIDERS: ATTEND Surgery
DX: E11.622 Type 2 diabetes mellitus with other skin ulcer (principal); I70.248 Atherosclerosis of native arteries of left leg with ulceration of other part of lower leg; L97.821 Non-pressure chronic ulcer of other part of left lower leg limited to breakdown of skin; L97.321 Non-pressure chronic ulcer of left ankle limited to breakdown of skin; E11.621 Type 2 diabetes mellitus with foot ulcer; L97.521 Non-pressure chronic ulcer of other part of left foot limited to breakdown of skin; E11.69 Type 2 diabetes mellitus with other specified complication; M86.672 Other chronic osteomyelitis, left ankle and foot; I25.10 Atherosclerotic heart disease of native coronary artery without angina pectoris; J44.9 Chronic obstructive pulmonary disease, unspecified; I10 Essential (primary) hypertension; K21.9 Gastro-esophageal reflux disease without esophagitis; E78.00 Pure hypercholesterolemia, unspecified; I77.1 Stricture of artery; F10.10 Alcohol abuse, uncomplicated; F41.9 Anxiety disorder, unspecified; F17.210 Nicotine dependence, cigarettes, uncomplicated; F03.90 Unspecified dementia, unspecified severity, without behavioral disturbance, psychotic disturbance, mood disturbance, and anxiety; F32.9 Major depressive disorder, single episode, unspecified; Z79.84 Long term (current) use of oral hypoglycemic drugs; Z79.4 Long term (current) use of insulin; Z86.73 Personal history of transient ischemic attack (TIA), and cerebral infarction without residual deficits; Z95.1 Presence of aortocoronary bypass graft
CPT/HCPCS: 97597; A6021; A6206

== ENCOUNTER 2018-03-14 11:10 | Day surgery (SDC) | payer MEDICARE, MEDICAID ==
[2018-03-14] MEDS ORDERED: LIDOcaine 2% 5ml jelly ONE (11:35)
[2018-03-14] MEDS ORDERED: LIDOcaine 1%/PF 5ML 10 MG/ML VIAL ONE (12:48)
== END 2018-03-14 12:30 | disposition home or self-care (01) ==
LOC: WOUND CARE 11:10
PROVIDERS: ATTEND Surgery
DX: E11.622 Type 2 diabetes mellitus with other skin ulcer (principal); I70.248 Atherosclerosis of native arteries of left leg with ulceration of other part of lower leg; L97.821 Non-pressure chronic ulcer of other part of left lower leg limited to breakdown of skin; L97.321 Non-pressure chronic ulcer of left ankle limited to breakdown of skin; E11.621 Type 2 diabetes mellitus with foot ulcer; L97.521 Non-pressure chronic ulcer of other part of left foot limited to breakdown of skin; E11.69 Type 2 diabetes mellitus with other specified complication; M86.672 Other chronic osteomyelitis, left ankle and foot; I25.10 Atherosclerotic heart disease of native coronary artery without angina pectoris; J44.9 Chronic obstructive pulmonary disease, unspecified; I10 Essential (primary) hypertension; K21.9 Gastro-esophageal reflux disease without esophagitis; E78.00 Pure hypercholesterolemia, unspecified; I77.1 Stricture of artery; F10.10 Alcohol abuse, uncomplicated; F41.9 Anxiety disorder, unspecified; F17.210 Nicotine dependence, cigarettes, uncomplicated; F03.90 Unspecified dementia, unspecified severity, without behavioral disturbance, psychotic disturbance, mood disturbance, and anxiety; F32.9 Major depressive disorder, single episode, unspecified; Z79.84 Long term (current) use of oral hypoglycemic drugs; Z79.4 Long term (current) use of insulin; Z86.73 Personal history of transient ischemic attack (TIA), and cerebral infarction without residual deficits; Z95.1 Presence of aortocoronary bypass graft
CPT/HCPCS: 11044; 87070; 87075; 87076; 87077; 87102; 87176; 87186; A6021; A6206; J2001

== ENCOUNTER 2018-03-21 09:51 | Day surgery (SDC) | payer MEDICARE, MEDICAID ==
[2018-03-21] MEDS ORDERED: LIDOcaine 2% 5ml jelly ONE (12:28)
== END 2018-03-21 13:26 | disposition home or self-care (01) ==
LOC: RAD 09:51
PROVIDERS: ATTEND Surgery
DX: E11.622 Type 2 diabetes mellitus with other skin ulcer (principal); I70.248 Atherosclerosis of native arteries of left leg with ulceration of other part of lower leg; L97.821 Non-pressure chronic ulcer of other part of left lower leg limited to breakdown of skin; L97.321 Non-pressure chronic ulcer of left ankle limited to breakdown of skin; E11.621 Type 2 diabetes mellitus with foot ulcer; L97.521 Non-pressure chronic ulcer of other part of left foot limited to breakdown of skin; E11.69 Type 2 diabetes mellitus with other specified complication; M86.672 Other chronic osteomyelitis, left ankle and foot; I25.10 Atherosclerotic heart disease of native coronary artery without angina pectoris; J44.9 Chronic obstructive pulmonary disease, unspecified; I10 Essential (primary) hypertension; K21.9 Gastro-esophageal reflux disease without esophagitis; E78.00 Pure hypercholesterolemia, unspecified; I77.1 Stricture of artery; F10.10 Alcohol abuse, uncomplicated; F41.9 Anxiety disorder, unspecified; F17.210 Nicotine dependence, cigarettes, uncomplicated; F03.90 Unspecified dementia, unspecified severity, without behavioral disturbance, psychotic disturbance, mood disturbance, and anxiety; F32.9 Major depressive disorder, single episode, unspecified; Z79.84 Long term (current) use of oral hypoglycemic drugs; Z79.4 Long term (current) use of insulin; Z86.73 Personal history of transient ischemic attack (TIA), and cerebral infarction without residual deficits; Z95.1 Presence of aortocoronary bypass graft
CPT/HCPCS: 11042; 73718; 97597; A6021; A6206

== ENCOUNTER 2018-04-11 11:08 | Day surgery (SDC) | payer MEDICARE, MEDICAID ==
[2018-04-11] MEDS: LIDOcaine 2% 5ml jelly ONE (12:10)
== END 2018-04-11 11:26 | disposition home or self-care (01) ==
LOC: WOUND CARE 11:08
PROVIDERS: ATTEND Surgery
DX: E11.622 Type 2 diabetes mellitus with other skin ulcer (principal); I70.248 Atherosclerosis of native arteries of left leg with ulceration of other part of lower leg; L97.821 Non-pressure chronic ulcer of other part of left lower leg limited to breakdown of skin; L97.321 Non-pressure chronic ulcer of left ankle limited to breakdown of skin; E11.621 Type 2 diabetes mellitus with foot ulcer; L97.521 Non-pressure chronic ulcer of other part of left foot limited to breakdown of skin; E11.69 Type 2 diabetes mellitus with other specified complication; M86.672 Other chronic osteomyelitis, left ankle and foot; I25.10 Atherosclerotic heart disease of native coronary artery without angina pectoris; J44.9 Chronic obstructive pulmonary disease, unspecified; I10 Essential (primary) hypertension; K21.9 Gastro-esophageal reflux disease without esophagitis; E78.00 Pure hypercholesterolemia, unspecified; I77.1 Stricture of artery; F10.10 Alcohol abuse, uncomplicated; F41.9 Anxiety disorder, unspecified; F17.210 Nicotine dependence, cigarettes, uncomplicated; F03.90 Unspecified dementia, unspecified severity, without behavioral disturbance, psychotic disturbance, mood disturbance, and anxiety; F32.9 Major depressive disorder, single episode, unspecified; Z79.84 Long term (current) use of oral hypoglycemic drugs; Z79.4 Long term (current) use of insulin; Z86.73 Personal history of transient ischemic attack (TIA), and cerebral infarction without residual deficits; Z95.1 Presence of aortocoronary bypass graft
CPT/HCPCS: 11042; 97597; A6021; A6206; A6446

== ENCOUNTER 2018-04-18 11:07 | Day surgery (SDC) | payer MEDICARE, MEDICAID ==
[2018-04-18] MEDS ORDERED: LIDOcaine 2% 5ml jelly ONE (12:01)
[2018-04-18] MEDS ORDERED: hydrocortisone 1% cream 28gm TP ONE (13:01)
== END 2018-04-18 13:24 | disposition home or self-care (01) ==
LOC: WOUND CARE 11:07
PROVIDERS: ATTEND Surgery
DX: E11.622 Type 2 diabetes mellitus with other skin ulcer (principal); I70.248 Atherosclerosis of native arteries of left leg with ulceration of other part of lower leg; L97.821 Non-pressure chronic ulcer of other part of left lower leg limited to breakdown of skin; L97.321 Non-pressure chronic ulcer of left ankle limited to breakdown of skin; E11.621 Type 2 diabetes mellitus with foot ulcer; L97.521 Non-pressure chronic ulcer of other part of left foot limited to breakdown of skin; E11.69 Type 2 diabetes mellitus with other specified complication; M86.672 Other chronic osteomyelitis, left ankle and foot; I25.10 Atherosclerotic heart disease of native coronary artery without angina pectoris; J44.9 Chronic obstructive pulmonary disease, unspecified; I10 Essential (primary) hypertension; K21.9 Gastro-esophageal reflux disease without esophagitis; E78.00 Pure hypercholesterolemia, unspecified; I77.1 Stricture of artery; F10.10 Alcohol abuse, uncomplicated; F41.9 Anxiety disorder, unspecified; F17.210 Nicotine dependence, cigarettes, uncomplicated; F03.90 Unspecified dementia, unspecified severity, without behavioral disturbance, psychotic disturbance, mood disturbance, and anxiety; F32.9 Major depressive disorder, single episode, unspecified; Z79.84 Long term (current) use of oral hypoglycemic drugs; Z79.4 Long term (current) use of insulin; Z86.73 Personal history of transient ischemic attack (TIA), and cerebral infarction without residual deficits; Z95.1 Presence of aortocoronary bypass graft
CPT/HCPCS: 15271; A6209; A6222; A6446; Q4131; A6250

== ENCOUNTER 2018-04-26 11:00 | Outpatient (CLI) | payer MEDICARE, MEDICAID ==
[2018-04-26] MEDS ORDERED: LIDOcaine/PRILOcaine 5gm cream TP ONE (11:39)
== END 2018-04-26 12:20 | disposition home or self-care (01) ==
LOC: WOUND CARE 11:00 → EDSTATUS 11:00 → WOUND CARE 12:20
PROVIDERS: ATTEND Surgery
DX: E11.622 Type 2 diabetes mellitus with other skin ulcer (principal); I70.248 Atherosclerosis of native arteries of left leg with ulceration of other part of lower leg; L97.821 Non-pressure chronic ulcer of other part of left lower leg limited to breakdown of skin; L97.321 Non-pressure chronic ulcer of left ankle limited to breakdown of skin; E11.621 Type 2 diabetes mellitus with foot ulcer; L97.521 Non-pressure chronic ulcer of other part of left foot limited to breakdown of skin; E11.69 Type 2 diabetes mellitus with other specified complication; M86.672 Other chronic osteomyelitis, left ankle and foot; I25.10 Atherosclerotic heart disease of native coronary artery without angina pectoris; J44.9 Chronic obstructive pulmonary disease, unspecified; I10 Essential (primary) hypertension; K21.9 Gastro-esophageal reflux disease without esophagitis; E78.00 Pure hypercholesterolemia, unspecified; I77.1 Stricture of artery; F10.10 Alcohol abuse, uncomplicated; F41.9 Anxiety disorder, unspecified; F17.210 Nicotine dependence, cigarettes, uncomplicated; F03.90 Unspecified dementia, unspecified severity, without behavioral disturbance, psychotic disturbance, mood disturbance, and anxiety; F32.9 Major depressive disorder, single episode, unspecified; Z79.84 Long term (current) use of oral hypoglycemic drugs; Z79.4 Long term (current) use of insulin; Z86.73 Personal history of transient ischemic attack (TIA), and cerebral infarction without residual deficits; Z95.1 Presence of aortocoronary bypass graft
CPT/HCPCS: 99215; A6021; A6446

== ENCOUNTER 2018-05-02 11:08 | Day surgery (SDC) | payer MEDICARE, MEDICAID ==
[2018-05-02] MEDS ORDERED: LIDOcaine/PRILOcaine 5gm cream TP ONE (11:20)
[2018-05-02] MEDS ORDERED: gentamicin 0.1% topical ointment 15gm TP ONE (12:05)
== END 2018-05-02 12:32 | disposition home or self-care (01) ==
LOC: WOUND CARE 11:08
PROVIDERS: ATTEND Surgery
DX: E11.622 Type 2 diabetes mellitus with other skin ulcer (principal); I70.248 Atherosclerosis of native arteries of left leg with ulceration of other part of lower leg; L97.821 Non-pressure chronic ulcer of other part of left lower leg limited to breakdown of skin; L97.321 Non-pressure chronic ulcer of left ankle limited to breakdown of skin; E11.621 Type 2 diabetes mellitus with foot ulcer; L97.521 Non-pressure chronic ulcer of other part of left foot limited to breakdown of skin; E11.69 Type 2 diabetes mellitus with other specified complication; M86.672 Other chronic osteomyelitis, left ankle and foot; I25.10 Atherosclerotic heart disease of native coronary artery without angina pectoris; J44.9 Chronic obstructive pulmonary disease, unspecified; I10 Essential (primary) hypertension; K21.9 Gastro-esophageal reflux disease without esophagitis; E78.00 Pure hypercholesterolemia, unspecified; I77.1 Stricture of artery; F10.10 Alcohol abuse, uncomplicated; F41.9 Anxiety disorder, unspecified; F17.210 Nicotine dependence, cigarettes, uncomplicated; F03.90 Unspecified dementia, unspecified severity, without behavioral disturbance, psychotic disturbance, mood disturbance, and anxiety; F32.9 Major depressive disorder, single episode, unspecified; Z79.84 Long term (current) use of oral hypoglycemic drugs; Z79.4 Long term (current) use of insulin; Z86.73 Personal history of transient ischemic attack (TIA), and cerebral infarction without residual deficits; Z95.1 Presence of aortocoronary bypass graft
CPT/HCPCS: 15271; 97597; A6021; A6209; A6222; A6446; Q4131; A6250

== ENCOUNTER 2018-05-16 11:00 | Day surgery (SDC) | payer MEDICARE, MEDICAID ==
[2018-05-16] MEDS ORDERED: LIDOcaine/PRILOcaine 5gm cream TP ONE (12:45)
[2018-05-16] MEDS ORDERED: nystatin/triamcinolone cream 15gm TP ONE (13:26)
== END 2018-05-16 13:50 | disposition home or self-care (01) ==
LOC: WOUND CARE 11:00
PROVIDERS: ATTEND Surgery
DX: E11.622 Type 2 diabetes mellitus with other skin ulcer (principal); L97.321 Non-pressure chronic ulcer of left ankle limited to breakdown of skin; L97.821 Non-pressure chronic ulcer of other part of left lower leg limited to breakdown of skin; I70.248 Atherosclerosis of native arteries of left leg with ulceration of other part of lower leg; E11.621 Type 2 diabetes mellitus with foot ulcer; L97.521 Non-pressure chronic ulcer of other part of left foot limited to breakdown of skin; E11.69 Type 2 diabetes mellitus with other specified complication; M86.672 Other chronic osteomyelitis, left ankle and foot; I25.10 Atherosclerotic heart disease of native coronary artery without angina pectoris; J44.9 Chronic obstructive pulmonary disease, unspecified; I10 Essential (primary) hypertension; K21.9 Gastro-esophageal reflux disease without esophagitis; E78.00 Pure hypercholesterolemia, unspecified; I77.1 Stricture of artery; F10.10 Alcohol abuse, uncomplicated; F41.9 Anxiety disorder, unspecified; F17.210 Nicotine dependence, cigarettes, uncomplicated; F03.90 Unspecified dementia, unspecified severity, without behavioral disturbance, psychotic disturbance, mood disturbance, and anxiety; F32.9 Major depressive disorder, single episode, unspecified; Z79.84 Long term (current) use of oral hypoglycemic drugs; Z79.4 Long term (current) use of insulin; Z86.73 Personal history of transient ischemic attack (TIA), and cerebral infarction without residual deficits; Z95.1 Presence of aortocoronary bypass graft
CPT/HCPCS: 15271; 97597; A6021; A6209; A6222; A6446; Q4131; A6250

== ENCOUNTER 2018-05-23 11:12 | Outpatient (CLI) | payer MEDICARE, MEDICAID ==
[2018-05-23] MEDS ORDERED: LIDOcaine/PRILOcaine 5gm cream TP ONE (11:41)
== END 2018-05-23 12:41 | disposition home or self-care (01) ==
LOC: WOUND CARE 11:12
PROVIDERS: ATTEND Surgery
DX: E11.622 Type 2 diabetes mellitus with other skin ulcer (principal); L97.321 Non-pressure chronic ulcer of left ankle limited to breakdown of skin; L97.821 Non-pressure chronic ulcer of other part of left lower leg limited to breakdown of skin; I70.248 Atherosclerosis of native arteries of left leg with ulceration of other part of lower leg; E11.621 Type 2 diabetes mellitus with foot ulcer; L97.521 Non-pressure chronic ulcer of other part of left foot limited to breakdown of skin; E11.69 Type 2 diabetes mellitus with other specified complication; M86.672 Other chronic osteomyelitis, left ankle and foot; I25.10 Atherosclerotic heart disease of native coronary artery without angina pectoris; J44.9 Chronic obstructive pulmonary disease, unspecified; I10 Essential (primary) hypertension; K21.9 Gastro-esophageal reflux disease without esophagitis; E78.00 Pure hypercholesterolemia, unspecified; I77.1 Stricture of artery; F10.10 Alcohol abuse, uncomplicated; F41.9 Anxiety disorder, unspecified; F17.210 Nicotine dependence, cigarettes, uncomplicated; F03.90 Unspecified dementia, unspecified severity, without behavioral disturbance, psychotic disturbance, mood disturbance, and anxiety; F32.9 Major depressive disorder, single episode, unspecified; Z79.84 Long term (current) use of oral hypoglycemic drugs; Z79.4 Long term (current) use of insulin; Z86.73 Personal history of transient ischemic attack (TIA), and cerebral infarction without residual deficits; Z95.1 Presence of aortocoronary bypass graft
CPT/HCPCS: 99215; A6021; A6206; A6449

== ENCOUNTER 2018-05-30 11:08 | Day surgery (SDC) | payer MEDICARE, MEDICAID ==
[2018-05-30] MEDS ORDERED: LIDOcaine/PRILOcaine 5gm cream TP ONE (12:07)
== END 2018-05-30 12:55 | disposition home or self-care (01) ==
LOC: WOUND CARE 11:08
PROVIDERS: ATTEND Surgery
DX: E11.622 Type 2 diabetes mellitus with other skin ulcer (principal); L97.321 Non-pressure chronic ulcer of left ankle limited to breakdown of skin; L97.821 Non-pressure chronic ulcer of other part of left lower leg limited to breakdown of skin; I70.248 Atherosclerosis of native arteries of left leg with ulceration of other part of lower leg; E11.621 Type 2 diabetes mellitus with foot ulcer; L97.521 Non-pressure chronic ulcer of other part of left foot limited to breakdown of skin; E11.69 Type 2 diabetes mellitus with other specified complication; M86.672 Other chronic osteomyelitis, left ankle and foot; I25.10 Atherosclerotic heart disease of native coronary artery without angina pectoris; J44.9 Chronic obstructive pulmonary disease, unspecified; I10 Essential (primary) hypertension; K21.9 Gastro-esophageal reflux disease without esophagitis; E78.00 Pure hypercholesterolemia, unspecified; I77.1 Stricture of artery; F10.10 Alcohol abuse, uncomplicated; F41.9 Anxiety disorder, unspecified; F17.210 Nicotine dependence, cigarettes, uncomplicated; F03.90 Unspecified dementia, unspecified severity, without behavioral disturbance, psychotic disturbance, mood disturbance, and anxiety; F32.9 Major depressive disorder, single episode, unspecified; Z79.84 Long term (current) use of oral hypoglycemic drugs; Z79.4 Long term (current) use of insulin; Z86.73 Personal history of transient ischemic attack (TIA), and cerebral infarction without residual deficits; Z95.1 Presence of aortocoronary bypass graft
CPT/HCPCS: 15271; A6209; A6222; A6446; Q4131; A6250

== ENCOUNTER 2018-06-07 09:06 | Day surgery (SDC) | payer MEDICARE, MEDICAID ==
[2018-06-07] MEDS ORDERED: LIDOcaine/PRILOcaine 5gm cream TP ONE (10:26)
[2018-06-07] MEDS ORDERED: hydrocortisone 1% cream 28gm TP ONE (11:53)
== END 2018-06-07 12:11 | disposition home or self-care (01) ==
LOC: WOUND CARE 09:06
PROVIDERS: ATTEND Surgery
DX: E11.622 Type 2 diabetes mellitus with other skin ulcer (principal); L97.321 Non-pressure chronic ulcer of left ankle limited to breakdown of skin; L97.821 Non-pressure chronic ulcer of other part of left lower leg limited to breakdown of skin; I70.248 Atherosclerosis of native arteries of left leg with ulceration of other part of lower leg; E11.621 Type 2 diabetes mellitus with foot ulcer; L97.521 Non-pressure chronic ulcer of other part of left foot limited to breakdown of skin; E11.69 Type 2 diabetes mellitus with other specified complication; M86.672 Other chronic osteomyelitis, left ankle and foot; I25.10 Atherosclerotic heart disease of native coronary artery without angina pectoris; J44.9 Chronic obstructive pulmonary disease, unspecified; I10 Essential (primary) hypertension; K21.9 Gastro-esophageal reflux disease without esophagitis; E78.00 Pure hypercholesterolemia, unspecified; I77.1 Stricture of artery; F10.10 Alcohol abuse, uncomplicated; F41.9 Anxiety disorder, unspecified; F17.210 Nicotine dependence, cigarettes, uncomplicated; F03.90 Unspecified dementia, unspecified severity, without behavioral disturbance, psychotic disturbance, mood disturbance, and anxiety; F32.9 Major depressive disorder, single episode, unspecified; Z79.84 Long term (current) use of oral hypoglycemic drugs; Z79.4 Long term (current) use of insulin; Z86.73 Personal history of transient ischemic attack (TIA), and cerebral infarction without residual deficits; Z95.1 Presence of aortocoronary bypass graft
CPT/HCPCS: 97597; A6021; A6206

== ENCOUNTER 2018-06-14 10:35 | Day surgery (SDC) | payer MEDICARE, MEDICAID ==
[2018-06-14] MEDS ORDERED: LIDOcaine/PRILOcaine 5gm cream TP ONE (11:21)
== END 2018-06-14 11:45 | disposition home or self-care (01) ==
LOC: WOUND CARE 10:35
PROVIDERS: ATTEND Surgery
DX: E11.622 Type 2 diabetes mellitus with other skin ulcer (principal); L97.321 Non-pressure chronic ulcer of left ankle limited to breakdown of skin; L97.821 Non-pressure chronic ulcer of other part of left lower leg limited to breakdown of skin; I70.248 Atherosclerosis of native arteries of left leg with ulceration of other part of lower leg; E11.621 Type 2 diabetes mellitus with foot ulcer; L97.521 Non-pressure chronic ulcer of other part of left foot limited to breakdown of skin; E11.69 Type 2 diabetes mellitus with other specified complication; M86.672 Other chronic osteomyelitis, left ankle and foot; I25.10 Atherosclerotic heart disease of native coronary artery without angina pectoris; J44.9 Chronic obstructive pulmonary disease, unspecified; I10 Essential (primary) hypertension; K21.9 Gastro-esophageal reflux disease without esophagitis; E78.00 Pure hypercholesterolemia, unspecified; I77.1 Stricture of artery; F10.10 Alcohol abuse, uncomplicated; F41.9 Anxiety disorder, unspecified; F17.210 Nicotine dependence, cigarettes, uncomplicated; F03.90 Unspecified dementia, unspecified severity, without behavioral disturbance, psychotic disturbance, mood disturbance, and anxiety; F32.9 Major depressive disorder, single episode, unspecified; Z79.84 Long term (current) use of oral hypoglycemic drugs; Z79.4 Long term (current) use of insulin; Z86.73 Personal history of transient ischemic attack (TIA), and cerebral infarction without residual deficits; Z95.1 Presence of aortocoronary bypass graft
CPT/HCPCS: 11042; 97597; A6021; A6206; A6446

== ENCOUNTER 2018-06-21 10:40 | Day surgery (SDC) | payer MEDICARE, MEDICAID ==
[2018-06-21] MEDS ORDERED: LIDOcaine/PRILOcaine 5gm cream TP ONE (11:24)
[2018-06-21] MEDS ORDERED: hydrocortisone 1% cream 28gm TP ONE (11:57)
== END 2018-06-21 12:09 | disposition home or self-care (01) ==
LOC: WOUND CARE 10:40
PROVIDERS: ATTEND Surgery
DX: E11.621 Type 2 diabetes mellitus with foot ulcer (principal); I70.248 Atherosclerosis of native arteries of left leg with ulceration of other part of lower leg; L97.521 Non-pressure chronic ulcer of other part of left foot limited to breakdown of skin; E11.622 Type 2 diabetes mellitus with other skin ulcer; L97.821 Non-pressure chronic ulcer of other part of left lower leg limited to breakdown of skin; E11.69 Type 2 diabetes mellitus with other specified complication; M86.672 Other chronic osteomyelitis, left ankle and foot; I25.10 Atherosclerotic heart disease of native coronary artery without angina pectoris; J44.9 Chronic obstructive pulmonary disease, unspecified; I10 Essential (primary) hypertension; K21.9 Gastro-esophageal reflux disease without esophagitis; E78.00 Pure hypercholesterolemia, unspecified; I77.1 Stricture of artery; F10.10 Alcohol abuse, uncomplicated; F41.9 Anxiety disorder, unspecified; F17.210 Nicotine dependence, cigarettes, uncomplicated; F03.90 Unspecified dementia, unspecified severity, without behavioral disturbance, psychotic disturbance, mood disturbance, and anxiety; F32.9 Major depressive disorder, single episode, unspecified; Z79.84 Long term (current) use of oral hypoglycemic drugs; Z79.4 Long term (current) use of insulin; Z86.73 Personal history of transient ischemic attack (TIA), and cerebral infarction without residual deficits; Z95.1 Presence of aortocoronary bypass graft
CPT/HCPCS: 15271; 15275; A6209; A6222; A6446; Q4133; A6250

== ENCOUNTER 2018-06-28 10:39 | Outpatient (CLI) | payer MEDICARE, MEDICAID | END 2018-06-28 12:12 | disposition home or self-care (01) | LOC: WOUND CARE 10:39 | PROVIDERS: ATTEND Surgery | DX: E11.622 Type 2 diabetes mellitus with other skin ulcer (principal); L97.821 Non-pressure chronic ulcer of other part of left lower leg limited to breakdown of skin; I70.248 Atherosclerosis of native arteries of left leg with ulceration of other part of lower leg; E11.621 Type 2 diabetes mellitus with foot ulcer; L97.521 Non-pressure chronic ulcer of other part of left foot limited to breakdown of skin; E11.69 Type 2 diabetes mellitus with other specified complication; M86.672 Other chronic osteomyelitis, left ankle and foot; I25.10 Atherosclerotic heart disease of native coronary artery without angina pectoris; J44.9 Chronic obstructive pulmonary disease, unspecified; I10 Essential (primary) hypertension; K21.9 Gastro-esophageal reflux disease without esophagitis; E78.00 Pure hypercholesterolemia, unspecified; I77.1 Stricture of artery; F10.10 Alcohol abuse, uncomplicated; F41.9 Anxiety disorder, unspecified; F17.210 Nicotine dependence, cigarettes, uncomplicated; F03.90 Unspecified dementia, unspecified severity, without behavioral disturbance, psychotic disturbance, mood disturbance, and anxiety; F32.9 Major depressive disorder, single episode, unspecified; Z79.84 Long term (current) use of oral hypoglycemic drugs; Z79.4 Long term (current) use of insulin; Z86.73 Personal history of transient ischemic attack (TIA), and cerebral infarction without residual deficits; Z95.1 Presence of aortocoronary bypass graft | CPT/HCPCS: 99215; A6021; A6206 ==

== ENCOUNTER 2018-07-12 10:35 | Day surgery (SDC) | payer MEDICARE, MEDICAID ==
[2018-07-12] MEDS ORDERED: LIDOcaine/PRILOcaine 5gm cream TP ONE (11:13)
== END 2018-07-12 12:40 | disposition home or self-care (01) ==
LOC: WOUND CARE 10:35
PROVIDERS: ATTEND Surgery
DX: E11.622 Type 2 diabetes mellitus with other skin ulcer (principal); L97.222 Non-pressure chronic ulcer of left calf with fat layer exposed; L97.821 Non-pressure chronic ulcer of other part of left lower leg limited to breakdown of skin; I70.248 Atherosclerosis of native arteries of left leg with ulceration of other part of lower leg; E11.621 Type 2 diabetes mellitus with foot ulcer; L97.521 Non-pressure chronic ulcer of other part of left foot limited to breakdown of skin; E11.69 Type 2 diabetes mellitus with other specified complication; M86.672 Other chronic osteomyelitis, left ankle and foot; I25.10 Atherosclerotic heart disease of native coronary artery without angina pectoris; J44.9 Chronic obstructive pulmonary disease, unspecified; I10 Essential (primary) hypertension; K21.9 Gastro-esophageal reflux disease without esophagitis; E78.00 Pure hypercholesterolemia, unspecified; I77.1 Stricture of artery; F10.10 Alcohol abuse, uncomplicated; F41.9 Anxiety disorder, unspecified; F17.210 Nicotine dependence, cigarettes, uncomplicated; F03.90 Unspecified dementia, unspecified severity, without behavioral disturbance, psychotic disturbance, mood disturbance, and anxiety; F32.9 Major depressive disorder, single episode, unspecified; Z79.84 Long term (current) use of oral hypoglycemic drugs; Z79.4 Long term (current) use of insulin; Z86.73 Personal history of transient ischemic attack (TIA), and cerebral infarction without residual deficits; Z95.1 Presence of aortocoronary bypass graft
CPT/HCPCS: 97597; A6021; A6206; A6446

== ENCOUNTER 2018-07-19 10:44 | Day surgery (SDC) | payer MEDICARE, MEDICAID | END 2018-07-19 12:34 | disposition home or self-care (01) | LOC: WOUND CARE 10:44 | PROVIDERS: ATTEND Surgery | DX: E11.622 Type 2 diabetes mellitus with other skin ulcer (principal); L97.222 Non-pressure chronic ulcer of left calf with fat layer exposed; L97.821 Non-pressure chronic ulcer of other part of left lower leg limited to breakdown of skin; I70.248 Atherosclerosis of native arteries of left leg with ulceration of other part of lower leg; E11.621 Type 2 diabetes mellitus with foot ulcer; L97.521 Non-pressure chronic ulcer of other part of left foot limited to breakdown of skin; I83.022 Varicose veins of left lower extremity with ulcer of calf; I83.025 Varicose veins of left lower extremity with ulcer other part of foot; E11.69 Type 2 diabetes mellitus with other specified complication; M86.672 Other chronic osteomyelitis, left ankle and foot; I25.10 Atherosclerotic heart disease of native coronary artery without angina pectoris; J44.9 Chronic obstructive pulmonary disease, unspecified; I10 Essential (primary) hypertension; K21.9 Gastro-esophageal reflux disease without esophagitis; E78.00 Pure hypercholesterolemia, unspecified; I77.1 Stricture of artery; F10.10 Alcohol abuse, uncomplicated; F41.9 Anxiety disorder, unspecified; F17.210 Nicotine dependence, cigarettes, uncomplicated; F03.90 Unspecified dementia, unspecified severity, without behavioral disturbance, psychotic disturbance, mood disturbance, and anxiety; F32.9 Major depressive disorder, single episode, unspecified; Z79.84 Long term (current) use of oral hypoglycemic drugs; Z79.4 Long term (current) use of insulin; Z86.73 Personal history of transient ischemic attack (TIA), and cerebral infarction without residual deficits; Z95.1 Presence of aortocoronary bypass graft | CPT/HCPCS: 15271; 15275; A6209; A6222; Q4133; A6250; A6446 ==

== ENCOUNTER 2018-08-02 10:45 | Day surgery (SDC) | payer MEDICARE, MEDICAID ==
[2018-08-02] MEDS ORDERED: hydrocortisone 1% cream 28gm TP ONE (11:37)
== END 2018-08-02 11:58 | disposition home or self-care (01) ==
LOC: WOUND CARE 10:45
PROVIDERS: ATTEND Surgery
DX: E11.622 Type 2 diabetes mellitus with other skin ulcer (principal); I83.022 Varicose veins of left lower extremity with ulcer of calf; L97.222 Non-pressure chronic ulcer of left calf with fat layer exposed; L97.821 Non-pressure chronic ulcer of other part of left lower leg limited to breakdown of skin; I70.248 Atherosclerosis of native arteries of left leg with ulceration of other part of lower leg; E11.621 Type 2 diabetes mellitus with foot ulcer; I83.025 Varicose veins of left lower extremity with ulcer other part of foot; L97.521 Non-pressure chronic ulcer of other part of left foot limited to breakdown of skin; E11.69 Type 2 diabetes mellitus with other specified complication; M86.672 Other chronic osteomyelitis, left ankle and foot; I25.10 Atherosclerotic heart disease of native coronary artery without angina pectoris; J44.9 Chronic obstructive pulmonary disease, unspecified; I10 Essential (primary) hypertension; K21.9 Gastro-esophageal reflux disease without esophagitis; E78.00 Pure hypercholesterolemia, unspecified; I77.1 Stricture of artery; F10.10 Alcohol abuse, uncomplicated; F41.9 Anxiety disorder, unspecified; F17.210 Nicotine dependence, cigarettes, uncomplicated; F03.90 Unspecified dementia, unspecified severity, without behavioral disturbance, psychotic disturbance, mood disturbance, and anxiety; F32.9 Major depressive disorder, single episode, unspecified; Z79.84 Long term (current) use of oral hypoglycemic drugs; Z79.4 Long term (current) use of insulin; Z86.73 Personal history of transient ischemic attack (TIA), and cerebral infarction without residual deficits; Z95.1 Presence of aortocoronary bypass graft
CPT/HCPCS: 97597; A6021; A6206; A6446

== ENCOUNTER 2018-08-09 10:48 | Day surgery (SDC) | payer MEDICARE, MEDICAID ==
[2018-08-09] MEDS ORDERED: LIDOcaine/PRILOcaine 5gm cream TP ONE (11:20)
== END 2018-08-09 13:00 | disposition home or self-care (01) ==
LOC: WOUND CARE 10:48
PROVIDERS: ATTEND Surgery
DX: I83.025 Varicose veins of left lower extremity with ulcer other part of foot (principal); I83.022 Varicose veins of left lower extremity with ulcer of calf; E11.622 Type 2 diabetes mellitus with other skin ulcer; I70.248 Atherosclerosis of native arteries of left leg with ulceration of other part of lower leg; L97.222 Non-pressure chronic ulcer of left calf with fat layer exposed; E11.621 Type 2 diabetes mellitus with foot ulcer; L97.521 Non-pressure chronic ulcer of other part of left foot limited to breakdown of skin; E11.69 Type 2 diabetes mellitus with other specified complication; M86.672 Other chronic osteomyelitis, left ankle and foot; I25.10 Atherosclerotic heart disease of native coronary artery without angina pectoris; J44.9 Chronic obstructive pulmonary disease, unspecified; I10 Essential (primary) hypertension; K21.9 Gastro-esophageal reflux disease without esophagitis; E78.00 Pure hypercholesterolemia, unspecified; I77.1 Stricture of artery; F10.10 Alcohol abuse, uncomplicated; F41.9 Anxiety disorder, unspecified; F17.210 Nicotine dependence, cigarettes, uncomplicated; F03.90 Unspecified dementia, unspecified severity, without behavioral disturbance, psychotic disturbance, mood disturbance, and anxiety; F32.9 Major depressive disorder, single episode, unspecified; Z79.84 Long term (current) use of oral hypoglycemic drugs; Z79.4 Long term (current) use of insulin; Z86.73 Personal history of transient ischemic attack (TIA), and cerebral infarction without residual deficits; Z95.1 Presence of aortocoronary bypass graft
CPT/HCPCS: 15271; 15275; A6209; A6222; Q4133; A6250; A6446

== ENCOUNTER 2018-08-16 11:15 | Outpatient (CLI) | payer MEDICARE, MEDICAID | END 2018-08-16 12:00 | disposition home or self-care (01) | LOC: WOUND CARE 11:15 | PROVIDERS: ATTEND Surgery | DX: I83.025 Varicose veins of left lower extremity with ulcer other part of foot (principal); I83.022 Varicose veins of left lower extremity with ulcer of calf; E11.622 Type 2 diabetes mellitus with other skin ulcer; I70.248 Atherosclerosis of native arteries of left leg with ulceration of other part of lower leg; L97.222 Non-pressure chronic ulcer of left calf with fat layer exposed; E11.621 Type 2 diabetes mellitus with foot ulcer; L97.521 Non-pressure chronic ulcer of other part of left foot limited to breakdown of skin; E11.69 Type 2 diabetes mellitus with other specified complication; M86.672 Other chronic osteomyelitis, left ankle and foot; I25.10 Atherosclerotic heart disease of native coronary artery without angina pectoris; J44.9 Chronic obstructive pulmonary disease, unspecified; I10 Essential (primary) hypertension; K21.9 Gastro-esophageal reflux disease without esophagitis; E78.00 Pure hypercholesterolemia, unspecified; I77.1 Stricture of artery; F10.10 Alcohol abuse, uncomplicated; F41.9 Anxiety disorder, unspecified; F17.210 Nicotine dependence, cigarettes, uncomplicated; F03.90 Unspecified dementia, unspecified severity, without behavioral disturbance, psychotic disturbance, mood disturbance, and anxiety; F32.9 Major depressive disorder, single episode, unspecified; Z79.84 Long term (current) use of oral hypoglycemic drugs; Z79.4 Long term (current) use of insulin; Z86.73 Personal history of transient ischemic attack (TIA), and cerebral infarction without residual deficits; Z95.1 Presence of aortocoronary bypass graft | CPT/HCPCS: A6206; A6446; G0463 ==

== ENCOUNTER 2018-08-22 10:30 | Day surgery (SDC) | payer MEDICARE, MEDICAID ==
[2018-08-22] MEDS ORDERED: LIDOcaine 2% 5ml jelly MM ONE (15:20)
--- NOTE | 2018-08-22 15:26 | NUR ---
Patient arrived safely into [facility] via wheelchair. Patient admitted to outpatient wound care for physician visit. Dressing removed, wound cleansed and lidocaine applied per order. Patient assessed for changes in conditions, medications and medical history. 0940-Dr. Melvin at bedside accompanied by RN. Wound assessed, time out performed by MD/RN. Wound debrided as detailed in the physician progress/procedure note. Plan of care discussed with patient. Dressings placed per MD orders. Patient instructed on the signs and symptoms of infection and to call the Wound Center if any occur or to go to the ED if we are closed: Increased pain in wound Increase in drainage from the wound Redness in the skin surrounding the wound Bleeding from the wound Temperature of 101 or greater Patient instructed that the weight of their body puts a large amount of pressure on their wounds. This pressure keeps the new tissue from growing and inhibits new blood vessels from forming. Explained that, if they continue to bear weight on a body part that has a wound, the time it takes to heal the wound increases, the wound may get worse or the wound may not heal at all. Patient verbalized understanding of all discharge instructions and plan of care and ambulated independently out to [facility] in stable condition with no sign or symptom of distress at time of discharge. Addendum: 08/22/18 at 1533 by Phyllis Estevez RN Amended: Links added.
== END 2018-08-22 14:00 | disposition home or self-care (01) ==
LOC: WOUND CARE 10:30
PROVIDERS: ATTEND Surgery
DX: I83.025 Varicose veins of left lower extremity with ulcer other part of foot (principal); I83.022 Varicose veins of left lower extremity with ulcer of calf; E11.622 Type 2 diabetes mellitus with other skin ulcer; I70.248 Atherosclerosis of native arteries of left leg with ulceration of other part of lower leg; L97.222 Non-pressure chronic ulcer of left calf with fat layer exposed; E11.621 Type 2 diabetes mellitus with foot ulcer; L97.521 Non-pressure chronic ulcer of other part of left foot limited to breakdown of skin; E11.69 Type 2 diabetes mellitus with other specified complication; M86.672 Other chronic osteomyelitis, left ankle and foot; I25.10 Atherosclerotic heart disease of native coronary artery without angina pectoris; J44.9 Chronic obstructive pulmonary disease, unspecified; I10 Essential (primary) hypertension; K21.9 Gastro-esophageal reflux disease without esophagitis; E78.00 Pure hypercholesterolemia, unspecified; I77.1 Stricture of artery; F10.10 Alcohol abuse, uncomplicated; F41.9 Anxiety disorder, unspecified; F17.210 Nicotine dependence, cigarettes, uncomplicated; F03.90 Unspecified dementia, unspecified severity, without behavioral disturbance, psychotic disturbance, mood disturbance, and anxiety; F32.9 Major depressive disorder, single episode, unspecified; Z79.84 Long term (current) use of oral hypoglycemic drugs; Z79.4 Long term (current) use of insulin; Z86.73 Personal history of transient ischemic attack (TIA), and cerebral infarction without residual deficits; Z95.1 Presence of aortocoronary bypass graft
CPT/HCPCS: 15271; 15275; A6209; A6222; Q4133; A6250; A6446

== ENCOUNTER 2018-08-30 10:45 | Day surgery (SDC) | payer MEDICARE, MEDICAID ==
[2018-08-30] MEDS ORDERED: nystatin/triamcinolone cream 15gm TP ONE (11:55)
--- NOTE | 2018-08-30 12:31 | NUR ---
Patient arrived safely into [facility] accompanied by yoana. Patient admitted to outpatient wound care for physician visit. Dressing removed, wound cleansed and lidocaine applied per order. Patient assessed for changes in conditions, medications and medical history. 0940-Dr. Melvin at bedside accompanied by RN. Wound assessed, time out performed by MD/RN. Wound debrided as detailed in the physician progress/procedure note. Plan of care discussed with patient. Dressings placed per MD orders. Patient instructed on the signs and symptoms of infection and to call the Wound Center if any occur or to go to the ED if we are closed: Increased pain in wound Increase in drainage from the wound Redness in the skin surrounding the wound Bleeding from the wound Temperature of 101 or greater Patient instructed that the weight of their body puts a large amount of pressure on their wounds. This pressure keeps the new tissue from growing and inhibits new blood vessels from forming. Explained that, if they continue to bear weight on a body part that has a wound, the time it takes to heal the wound increases, the wound may get worse or the wound may not heal at all. Patient verbalized understanding of all discharge instructions and plan of care and ambulated independently out to [facility] in stable condition with no sign or symptom of distress at time of discharge. Addendum: 08/30/18 at 1232 by Phyllis Estevez RN Amended: Links added.
== END 2018-08-30 12:11 | disposition home or self-care (01) ==
LOC: WOUND CARE 10:45
PROVIDERS: ATTEND Surgery
DX: I83.025 Varicose veins of left lower extremity with ulcer other part of foot (principal); I83.022 Varicose veins of left lower extremity with ulcer of calf; E11.622 Type 2 diabetes mellitus with other skin ulcer; I70.248 Atherosclerosis of native arteries of left leg with ulceration of other part of lower leg; L97.222 Non-pressure chronic ulcer of left calf with fat layer exposed; E11.621 Type 2 diabetes mellitus with foot ulcer; L97.521 Non-pressure chronic ulcer of other part of left foot limited to breakdown of skin; E11.69 Type 2 diabetes mellitus with other specified complication; M86.672 Other chronic osteomyelitis, left ankle and foot; I25.10 Atherosclerotic heart disease of native coronary artery without angina pectoris; J44.9 Chronic obstructive pulmonary disease, unspecified; I10 Essential (primary) hypertension; K21.9 Gastro-esophageal reflux disease without esophagitis; E78.00 Pure hypercholesterolemia, unspecified; I77.1 Stricture of artery; F10.10 Alcohol abuse, uncomplicated; F41.9 Anxiety disorder, unspecified; F17.210 Nicotine dependence, cigarettes, uncomplicated; F03.90 Unspecified dementia, unspecified severity, without behavioral disturbance, psychotic disturbance, mood disturbance, and anxiety; F32.9 Major depressive disorder, single episode, unspecified; Z79.84 Long term (current) use of oral hypoglycemic drugs; Z79.4 Long term (current) use of insulin; Z86.73 Personal history of transient ischemic attack (TIA), and cerebral infarction without residual deficits; Z95.1 Presence of aortocoronary bypass graft
CPT/HCPCS: 97597; A6209; A6021; A6206; A6446

== ENCOUNTER 2018-09-06 10:39 | Day surgery (SDC) | payer MEDICARE, MEDICAID ==
[2018-09-06] MEDS ORDERED: LIDOcaine/PRILOcaine 5gm cream TP ONE (11:14)
[2018-09-06] MEDS ORDERED: nystatin/triamcinolone cream 15gm TP ONE (11:39)
--- NOTE | 2018-09-06 12:18 | NUR ---
Patient ambulated independently from [facility] and was admitted to outpatient wound care for physician visit with Nilay Melvin MD. Dressing removed, wound cleansed and lidocaine applied per order. Patient assessed for changes in conditions, medications and medical history. Dr. Melvin at bedside accompanied by RN. Wound assessed, time out performed by MD/RN. Wound debrided as detailed in the physician progress/procedure note. Plan of care discussed with patient. Dressings placed per MD orders. Patient instructed on the signs and symptoms of infection and to call the Wound Center if any occur or to go to the ED if we are closed: Increased pain in wound Increase in drainage from the wound Redness in the skin surrounding the wound Bleeding from the wound Temperature of 101 or greater Patient instructed that the weight of their body puts a large amount of pressure on their wounds. This pressure keeps the new tissue from growing and inhibits new blood vessels from forming. Explained that, if they continue to bear weight on a body part that has a wound, the time it takes to heal the wound increases, the wound may g et worse or the wound may not heal at all. Patient verbalized understanding of all discharge instructions and plan of care and ambulated independently out to [facility] in stable condition with no sign or symptom of distress at time of discharge. Addendum: 09/06/18 at 1221 by Phyllis Estevez RN Amended: Links added.
== END 2018-09-06 11:50 | disposition home or self-care (01) ==
LOC: WOUND CARE 10:39
PROVIDERS: ATTEND Surgery
DX: I83.025 Varicose veins of left lower extremity with ulcer other part of foot (principal); I83.022 Varicose veins of left lower extremity with ulcer of calf; E11.622 Type 2 diabetes mellitus with other skin ulcer; I70.248 Atherosclerosis of native arteries of left leg with ulceration of other part of lower leg; L97.222 Non-pressure chronic ulcer of left calf with fat layer exposed; E11.621 Type 2 diabetes mellitus with foot ulcer; L97.521 Non-pressure chronic ulcer of other part of left foot limited to breakdown of skin; E11.69 Type 2 diabetes mellitus with other specified complication; M86.672 Other chronic osteomyelitis, left ankle and foot; I25.10 Atherosclerotic heart disease of native coronary artery without angina pectoris; J44.9 Chronic obstructive pulmonary disease, unspecified; I10 Essential (primary) hypertension; K21.9 Gastro-esophageal reflux disease without esophagitis; E78.00 Pure hypercholesterolemia, unspecified; I77.1 Stricture of artery; F10.10 Alcohol abuse, uncomplicated; F41.9 Anxiety disorder, unspecified; F17.210 Nicotine dependence, cigarettes, uncomplicated; F03.90 Unspecified dementia, unspecified severity, without behavioral disturbance, psychotic disturbance, mood disturbance, and anxiety; F32.9 Major depressive disorder, single episode, unspecified; Z79.84 Long term (current) use of oral hypoglycemic drugs; Z79.4 Long term (current) use of insulin; Z86.73 Personal history of transient ischemic attack (TIA), and cerebral infarction without residual deficits; Z95.1 Presence of aortocoronary bypass graft
CPT/HCPCS: 15271; 15275; A6209; A6222; Q4101; A6250; A6446

== ENCOUNTER 2018-09-13 10:42 | Outpatient (CLI) | payer MEDICARE, MEDICAID ==
[2018-09-13] MEDS ORDERED: LIDOcaine/PRILOcaine 5gm cream TP ONE (11:16)
[2018-09-13] MEDS ORDERED: gentamicin 0.1% topical ointment 15gm TP ONE (11:38)
[2018-09-13] MEDS ORDERED: hydrocortisone 1% cream 28gm TP ONE (11:42)
--- NOTE | 2018-09-13 12:28 | NUR ---
Patient ambulated independently from [facility] and was admitted to outpatient wound care for physician visit. Dressing removed, wound cleansed and Emla applied per order. Patient assessed for changes in conditions, medications and medical history. Dr. Melvin at bedside accompanied by RN. Wounds assessed and no debridement was done. Plan of care discussed with patient. Dressings placed per MD orders. Patient instructed on the signs and symptoms of infection and to call the Wound Center if any occur or to go to the ED if we are closed: Increased pain in wound Increase in drainage from the wound Redness in the skin surrounding the wound Bleeding from the wound Temperature of 101 or greater Patient verbalized understanding of all discharge instructions and plan of care and ambulated independently out to [facility] in stable condition with no sign or symptom of distress at time of discharge. Addendum: 09/13/18 at 1232 by Phyllis Estevez RN Amended: Links added.
== END 2018-09-13 12:01 | disposition home or self-care (01) ==
LOC: WOUND CARE 10:42
PROVIDERS: ATTEND Surgery
DX: I83.025 Varicose veins of left lower extremity with ulcer other part of foot (principal); I83.022 Varicose veins of left lower extremity with ulcer of calf; E11.622 Type 2 diabetes mellitus with other skin ulcer; I70.248 Atherosclerosis of native arteries of left leg with ulceration of other part of lower leg; L97.222 Non-pressure chronic ulcer of left calf with fat layer exposed; L97.322 Non-pressure chronic ulcer of left ankle with fat layer exposed; E11.621 Type 2 diabetes mellitus with foot ulcer; L97.521 Non-pressure chronic ulcer of other part of left foot limited to breakdown of skin; E11.69 Type 2 diabetes mellitus with other specified complication; M86.672 Other chronic osteomyelitis, left ankle and foot; I25.10 Atherosclerotic heart disease of native coronary artery without angina pectoris; J44.9 Chronic obstructive pulmonary disease, unspecified; I10 Essential (primary) hypertension; K21.9 Gastro-esophageal reflux disease without esophagitis; E78.00 Pure hypercholesterolemia, unspecified; I77.1 Stricture of artery; F10.10 Alcohol abuse, uncomplicated; F41.9 Anxiety disorder, unspecified; F17.210 Nicotine dependence, cigarettes, uncomplicated; F03.90 Unspecified dementia, unspecified severity, without behavioral disturbance, psychotic disturbance, mood disturbance, and anxiety; F32.9 Major depressive disorder, single episode, unspecified; Z79.84 Long term (current) use of oral hypoglycemic drugs; Z79.4 Long term (current) use of insulin; Z86.73 Personal history of transient ischemic attack (TIA), and cerebral infarction without residual deficits; Z95.1 Presence of aortocoronary bypass graft
CPT/HCPCS: A6222; G0463; A6021; A6446

== ENCOUNTER 2018-09-20 10:41 | Day surgery (SDC) | payer MEDICARE, MEDICAID ==
[2018-09-20] MEDS ORDERED: LIDOcaine/PRILOcaine 5gm cream TP ONE (11:35)
[2018-09-20] MEDS ORDERED: hydrocortisone 1% cream 28gm TP ONE (12:10)
--- NOTE | 2018-09-20 14:46 | NUR ---
Patient ambulated independently from [facility] and was admitted to outpatient wound care for physician visit. Dressing removed, wound cleansed and Emla applied per order. Patient assessed for changes in conditions, medications and medical history. Dr. Melvin at bedside accompanied by RN. Wound assessed, time out performed by MD/RN. Wound debrided as detailed in the physician progress/procedure note. Plan of care discussed with patient. Dressings placed per MD orders. Patient instructed on the signs and symptoms of infection and to call the Wound Center if any occur or to go to the ED if we are closed: Increased pain in wound Increase in drainage from the wound Redness in the skin surrounding the wound Bleeding from the wound Temperature of 101 or greater Patient instructed that the weight of their body puts a large amount of pressure on their wounds. This pressure keeps the new tissue from growing and inhibits new blood vessels from forming. Explained that, if they continue to bear weight on a body part that has a wound, the time it takes to heal the wound increases, the wound may get worse or the wound may not heal at all. Patient verbalized understanding of all discharge instructions and plan of care and ambulated independently out to [facility] in stable condition with no sign or symptom of distress at time of discharge. Addendum: 09/20/18 at 1448 by Phyllis Estevez RN Amended: Links added.
== END 2018-09-20 12:23 | disposition home or self-care (01) ==
LOC: WOUND CARE 10:41
PROVIDERS: ATTEND Surgery
DX: I83.025 Varicose veins of left lower extremity with ulcer other part of foot (principal); I83.022 Varicose veins of left lower extremity with ulcer of calf; E11.622 Type 2 diabetes mellitus with other skin ulcer; I70.248 Atherosclerosis of native arteries of left leg with ulceration of other part of lower leg; L97.222 Non-pressure chronic ulcer of left calf with fat layer exposed; L97.322 Non-pressure chronic ulcer of left ankle with fat layer exposed; E11.621 Type 2 diabetes mellitus with foot ulcer; L97.521 Non-pressure chronic ulcer of other part of left foot limited to breakdown of skin; E11.69 Type 2 diabetes mellitus with other specified complication; M86.672 Other chronic osteomyelitis, left ankle and foot; I25.10 Atherosclerotic heart disease of native coronary artery without angina pectoris; J44.9 Chronic obstructive pulmonary disease, unspecified; I10 Essential (primary) hypertension; K21.9 Gastro-esophageal reflux disease without esophagitis; E78.00 Pure hypercholesterolemia, unspecified; I77.1 Stricture of artery; F10.10 Alcohol abuse, uncomplicated; F41.9 Anxiety disorder, unspecified; F17.210 Nicotine dependence, cigarettes, uncomplicated; F03.90 Unspecified dementia, unspecified severity, without behavioral disturbance, psychotic disturbance, mood disturbance, and anxiety; F32.9 Major depressive disorder, single episode, unspecified; Z79.84 Long term (current) use of oral hypoglycemic drugs; Z79.4 Long term (current) use of insulin; Z86.73 Personal history of transient ischemic attack (TIA), and cerebral infarction without residual deficits; Z95.1 Presence of aortocoronary bypass graft
CPT/HCPCS: 15275; 97597; A6209; A6222; Q4133; A6250; A6446

== ENCOUNTER 2018-10-04 10:43 | Day surgery (SDC) | payer MEDICARE, MEDICAID ==
[2018-10-04] MEDS ORDERED: LIDOcaine 2% 5ml jelly ONE (11:10)
[2018-10-04] MEDS ORDERED: hydrocortisone 1% cream 28gm TP ONE (12:20)
--- NOTE | 2018-10-04 12:30 | NUR ---
Patient ambulated independently from [facility] accompanied by yoana Johnson and was admitted to outpatient wound care for physician visit with Nilay Melvin MD. Placed in contact isolation precautions per hospital policy. Dressing removed, wound cleansed and lidocaine applied per order. Patient assessed for changes in conditions, medications and medical history. 1150 - Dr. Melvin at bedside accompanied by RN. Wound assessed, time out performed by MD/RN. Wound debrided as detailed in the physician progress/procedure note. Plan of care discussed with patient. Dressings placed per MD orders. Patient instructed on the signs and symptoms of infection and to call the Wound Center if any occur or to go to the ED if we are closed: Increased pain in wound Increase in drainage from the wound Redness in the skin surrounding the wound Bleeding from the wound Temperature of 101 or greater Patient instructed that the weight of their body puts a large amount of pressure on their wounds. This pressure keeps the new tissue from growing and inhibits new blood vessels from forming. Explained that, if they continue to bear weight on a body part that has a wound, the time it takes to heal the wound increases, the wound may get worse or the wound may not heal at all. Patient verbalized understanding of all discharge instructions and plan of care and ambulated independently out to [facility] accompanied by Elizabeth in stable condition with no sign or symptom of distress at time of discharge.
== END 2018-10-04 12:38 | disposition home or self-care (01) ==
LOC: WOUND CARE 10:43
PROVIDERS: ATTEND Surgery
DX: I83.025 Varicose veins of left lower extremity with ulcer other part of foot (principal); E11.621 Type 2 diabetes mellitus with foot ulcer; L97.521 Non-pressure chronic ulcer of other part of left foot limited to breakdown of skin; I83.022 Varicose veins of left lower extremity with ulcer of calf; E11.622 Type 2 diabetes mellitus with other skin ulcer; I70.248 Atherosclerosis of native arteries of left leg with ulceration of other part of lower leg; L97.222 Non-pressure chronic ulcer of left calf with fat layer exposed; L97.322 Non-pressure chronic ulcer of left ankle with fat layer exposed; E11.69 Type 2 diabetes mellitus with other specified complication; M86.672 Other chronic osteomyelitis, left ankle and foot; I25.10 Atherosclerotic heart disease of native coronary artery without angina pectoris; J44.9 Chronic obstructive pulmonary disease, unspecified; I10 Essential (primary) hypertension; K21.9 Gastro-esophageal reflux disease without esophagitis; E78.00 Pure hypercholesterolemia, unspecified; I77.1 Stricture of artery; F10.10 Alcohol abuse, uncomplicated; F41.9 Anxiety disorder, unspecified; F17.210 Nicotine dependence, cigarettes, uncomplicated; F03.90 Unspecified dementia, unspecified severity, without behavioral disturbance, psychotic disturbance, mood disturbance, and anxiety; F32.9 Major depressive disorder, single episode, unspecified; Z79.84 Long term (current) use of oral hypoglycemic drugs; Z79.4 Long term (current) use of insulin; Z86.73 Personal history of transient ischemic attack (TIA), and cerebral infarction without residual deficits; Z95.1 Presence of aortocoronary bypass graft
CPT/HCPCS: 97597; A6021; A6206; A6446

== ENCOUNTER 2018-10-11 10:40 | Day surgery (SDC) | payer MEDICARE, MEDICAID ==
[2018-10-11] MEDS ORDERED: LIDOcaine 2% 5ml jelly ONE (11:31)
--- NOTE | 2018-10-11 12:30 | NUR ---
Patient ambulated independently from [facility] accompanied by his niece Elizabeth and was admitted to outpatient wound care for physician visit with Nilay Melvin MD. Placed in contact isolation precautions per hospital policy. Dressing removed, wound cleansed and lidocaine applied per order. Patient assessed for changes in conditions, medications and medical history. 1137 - Dr. Melvin at bedside accompanied by RN. Wound assessed, time out performed by MD/RN. Wound debrided as detailed in the physician progress/procedure note. Plan of care discussed with patient. Dressings placed per MD orders. Patient instructed on the signs and symptoms of infection and to call the Wound Center if any occur or to go to the ED if we are closed: Increased pain in wound Increase in drainage from the wound Redness in the skin surrounding the wound Bleeding from the wound Temperature of 101 or greater Patient instructed that the weight of their body puts a large amount of pressure on their wounds. This pressure keeps the new tissue from growing and inhibits new blood vessels from forming. Explained that, if they continue to bear weight on a body part that has a wound, the time it takes to heal the wound increases, the wound may get worse or the wound may not heal at all. Patient and Elizabeth verbalized understanding of all discharge instructions and plan of care and patient ambulated independently out to [facility] in stable condition with no sign or symptom of distress at time of discharge and is accompanied by Elizabeth.
== END 2018-10-11 12:07 | disposition home or self-care (01) ==
LOC: WOUND CARE 10:40
PROVIDERS: ATTEND Surgery
DX: I83.025 Varicose veins of left lower extremity with ulcer other part of foot (principal); E11.621 Type 2 diabetes mellitus with foot ulcer; L97.521 Non-pressure chronic ulcer of other part of left foot limited to breakdown of skin; I83.022 Varicose veins of left lower extremity with ulcer of calf; E11.622 Type 2 diabetes mellitus with other skin ulcer; I70.248 Atherosclerosis of native arteries of left leg with ulceration of other part of lower leg; L97.222 Non-pressure chronic ulcer of left calf with fat layer exposed; L97.322 Non-pressure chronic ulcer of left ankle with fat layer exposed; E11.69 Type 2 diabetes mellitus with other specified complication; M86.672 Other chronic osteomyelitis, left ankle and foot; I25.10 Atherosclerotic heart disease of native coronary artery without angina pectoris; J44.9 Chronic obstructive pulmonary disease, unspecified; I10 Essential (primary) hypertension; K21.9 Gastro-esophageal reflux disease without esophagitis; E78.00 Pure hypercholesterolemia, unspecified; I77.1 Stricture of artery; F10.10 Alcohol abuse, uncomplicated; F41.9 Anxiety disorder, unspecified; F17.210 Nicotine dependence, cigarettes, uncomplicated; F03.90 Unspecified dementia, unspecified severity, without behavioral disturbance, psychotic disturbance, mood disturbance, and anxiety; F32.9 Major depressive disorder, single episode, unspecified; Z79.84 Long term (current) use of oral hypoglycemic drugs; Z79.4 Long term (current) use of insulin; Z86.73 Personal history of transient ischemic attack (TIA), and cerebral infarction without residual deficits; Z95.1 Presence of aortocoronary bypass graft
CPT/HCPCS: 97597; A6021; A6206; A6446

== ENCOUNTER 2018-10-14 10:36 | Day surgery (SDC) | payer MEDICARE, MEDICAID ==
[2018-10-14] MEDS ORDERED: LIDOcaine 2% 5ml jelly ONE (11:42)
[2018-10-14] MEDS ORDERED: hydrocortisone 1% cream 28gm TP ONE (12:15)
--- NOTE | 2018-10-14 15:36 | NUR ---
Patient ambulated independently from [facility] and was admitted to outpatient wound care for physician visit with Nilay Melvin MD. Dressing removed, wound cleansed and lidocaine applied per order. Patient assessed for changes in conditions, medications and medical history. Dr. Melvin at bedside accompanied by RN. Wound assessed, time out performed by MD/RN. Wound debrided as detailed in the physician progress/procedure note. Plan of care discussed with patient. Dressings placed per MD orders. Patient instructed on the signs and symptoms of infection and to call the Wound Center if any occur or to go to the ED if we are closed: Increased pain in wound Increase in drainage from the wound Redness in the skin surrounding the wound Bleeding from the wound Temperature of 101 or greater Patient instructed that the weight of their body puts a large amount of pressure on their wounds. This pressure keeps the new tissue from growing and inhibits new blood vessels from forming. Explained that, if they continue to bear weight on a body part that has a wound, the time it takes to heal the wound increases, the wound may get worse or the wound may not heal at all. Patient verbalized understanding of all discharge instructions and plan of care and ambulated independently out to [facility] in stable condition with no sign or symptom of distress at time of discharge. Addendum: 10/14/18 at 1540 by Phyllis Estevez RN Amended: Links added.
== END 2018-10-14 12:32 | disposition home or self-care (01) ==
LOC: WOUND CARE 10:36
PROVIDERS: ATTEND Surgery
DX: I83.025 Varicose veins of left lower extremity with ulcer other part of foot (principal); E11.621 Type 2 diabetes mellitus with foot ulcer; L97.521 Non-pressure chronic ulcer of other part of left foot limited to breakdown of skin; I83.022 Varicose veins of left lower extremity with ulcer of calf; E11.622 Type 2 diabetes mellitus with other skin ulcer; I70.248 Atherosclerosis of native arteries of left leg with ulceration of other part of lower leg; L97.222 Non-pressure chronic ulcer of left calf with fat layer exposed; L97.322 Non-pressure chronic ulcer of left ankle with fat layer exposed; E11.69 Type 2 diabetes mellitus with other specified complication; M86.672 Other chronic osteomyelitis, left ankle and foot; I25.10 Atherosclerotic heart disease of native coronary artery without angina pectoris; J44.9 Chronic obstructive pulmonary disease, unspecified; I10 Essential (primary) hypertension; K21.9 Gastro-esophageal reflux disease without esophagitis; E78.00 Pure hypercholesterolemia, unspecified; I77.1 Stricture of artery; F10.10 Alcohol abuse, uncomplicated; F41.9 Anxiety disorder, unspecified; F17.210 Nicotine dependence, cigarettes, uncomplicated; F03.90 Unspecified dementia, unspecified severity, without behavioral disturbance, psychotic disturbance, mood disturbance, and anxiety; F32.9 Major depressive disorder, single episode, unspecified; Z79.84 Long term (current) use of oral hypoglycemic drugs; Z79.4 Long term (current) use of insulin; Z86.73 Personal history of transient ischemic attack (TIA), and cerebral infarction without residual deficits; Z95.1 Presence of aortocoronary bypass graft
CPT/HCPCS: 97597; A6223; A6021; A6446

== ENCOUNTER 2018-10-18 10:45 | Day surgery (SDC) | payer MEDICARE, MEDICAID ==
[2018-10-18] MEDS ORDERED: LIDOcaine/PRILOcaine 5gm cream TP ONE (11:09)
--- NOTE | 2018-10-18 12:42 | NUR ---
Patient ambulated independently from [facility] and was admitted to outpatient wound care for physician visit with Nilay Melvin MD. Dressing removed, wound cleansed and Emla cream applied per order. Patient assessed for changes in conditions, medications and medical history. Dr. Melvin at bedside accompanied by RN. Wound assessed, time out performed by MD/RN. Wound debrided as detailed in the physician progress/procedure note. Plan of care discussed with patient. Dressings placed per MD orders. Patient instructed on the signs and symptoms of infection and to call the Wound Center if any occur or to go to the ED if we are closed: Increased pain in wound Increase in drainage from the wound Redness in the skin surrounding the wound Bleeding from the wound Temperature of 101 or greater Patient instructed that the weight of their body puts a large amount of pressure on their wounds. This pressure keeps the new tissue from growing and inhibits new blood vessels from forming. Explained that, if they continue to bear weight on a body part that has a wound, the time it takes to heal the wound increases, the wound may get worse or the wound may not heal at all. Patient verbalized understanding of all discharge instructions and plan of care and ambulated independently out to [facility] in stable condition with no sign or symptom of distress at time of discharge. Addendum: 10/18/18 at 1249 by Phyllis Estevez RN Amended: Links added.
== END 2018-10-18 12:00 | disposition home or self-care (01) ==
LOC: WOUND CARE 10:45
PROVIDERS: ATTEND Surgery
DX: I83.025 Varicose veins of left lower extremity with ulcer other part of foot (principal); E11.621 Type 2 diabetes mellitus with foot ulcer; L97.521 Non-pressure chronic ulcer of other part of left foot limited to breakdown of skin; I83.022 Varicose veins of left lower extremity with ulcer of calf; E11.622 Type 2 diabetes mellitus with other skin ulcer; I70.248 Atherosclerosis of native arteries of left leg with ulceration of other part of lower leg; L97.222 Non-pressure chronic ulcer of left calf with fat layer exposed; L97.322 Non-pressure chronic ulcer of left ankle with fat layer exposed; E11.69 Type 2 diabetes mellitus with other specified complication; M86.672 Other chronic osteomyelitis, left ankle and foot; I25.10 Atherosclerotic heart disease of native coronary artery without angina pectoris; J44.9 Chronic obstructive pulmonary disease, unspecified; I10 Essential (primary) hypertension; K21.9 Gastro-esophageal reflux disease without esophagitis; E78.00 Pure hypercholesterolemia, unspecified; I77.1 Stricture of artery; F10.10 Alcohol abuse, uncomplicated; F41.9 Anxiety disorder, unspecified; F17.210 Nicotine dependence, cigarettes, uncomplicated; F03.90 Unspecified dementia, unspecified severity, without behavioral disturbance, psychotic disturbance, mood disturbance, and anxiety; F32.9 Major depressive disorder, single episode, unspecified; Z79.84 Long term (current) use of oral hypoglycemic drugs; Z79.4 Long term (current) use of insulin; Z86.73 Personal history of transient ischemic attack (TIA), and cerebral infarction without residual deficits; Z95.1 Presence of aortocoronary bypass graft
CPT/HCPCS: 11042; 15275; A6209; Q4133; A6021; A6250

== ENCOUNTER 2018-10-25 10:33 | Outpatient (CLI) | payer MEDICARE, MEDICAID ==
[2018-10-25] MEDS ORDERED: LIDOcaine/PRILOcaine 5gm cream TP ONE (10:56)
[2018-10-25] MEDS ORDERED: hydrocortisone 1% cream 28gm TP ONE (11:20)
--- NOTE | 2018-10-25 11:45 | NUR ---
Patient ambulated independently from [facility] accompanied by yoana Johnson and was admitted to outpatient wound care for physician visit with Nilay Melvin MD. Placed in contact isolation precautions per hospital policy. Dressing removed, wound cleansed. Patient assessed for changes in conditions, medications and medical history. 1115 - Dr. Melvin at bedside accompanied by RN. Wound assessed, time out performed by MD/RN. Wound debrided as detailed in the physician progress/procedure note. Plan of care discussed with patient. Dressings placed per MD orders. Patient instructed on the signs and symptoms of infection and to call the Wound Center if any occur or to go to the ED if we are closed: Increased pain in wound Increase in drainage from the wound Redness in the skin surrounding the wound Bleeding from the wound Temperature of 101 or greater Patient instructed that the weight of their body puts a large amount of pressure on their wounds. This pressure keeps the new tissue from growing and inhibits new blood vessels from forming. Explained that, if they continue to bear weight on a body part that has a wound, the time it takes to heal the wound increases, the wound may get worse or the wound may not heal at all. Patient and Elizabeth verbalized understanding of all discharge instructions and plan of care and ambulated independently out to [facility] accompanied by Elizabeth in stable condition with no sign or symptom of distress at time of discharge.
== END 2018-10-25 11:44 | disposition home or self-care (01) ==
LOC: WOUND CARE 10:33
PROVIDERS: ATTEND Surgery
DX: E11.622 Type 2 diabetes mellitus with other skin ulcer (principal); I70.242 Atherosclerosis of native arteries of left leg with ulceration of calf; I83.022 Varicose veins of left lower extremity with ulcer of calf; L97.221 Non-pressure chronic ulcer of left calf limited to breakdown of skin; L98.492 Non-pressure chronic ulcer of skin of other sites with fat layer exposed; I83.023 Varicose veins of left lower extremity with ulcer of ankle; L97.322 Non-pressure chronic ulcer of left ankle with fat layer exposed; E11.621 Type 2 diabetes mellitus with foot ulcer; L97.521 Non-pressure chronic ulcer of other part of left foot limited to breakdown of skin; I25.10 Atherosclerotic heart disease of native coronary artery without angina pectoris; J44.9 Chronic obstructive pulmonary disease, unspecified; I10 Essential (primary) hypertension; E11.69 Type 2 diabetes mellitus with other specified complication; M86.672 Other chronic osteomyelitis, left ankle and foot; E78.00 Pure hypercholesterolemia, unspecified; I77.1 Stricture of artery; F32.9 Major depressive disorder, single episode, unspecified; F17.210 Nicotine dependence, cigarettes, uncomplicated; F11.90 Opioid use, unspecified, uncomplicated; F17.200 Nicotine dependence, unspecified, uncomplicated; F10.10 Alcohol abuse, uncomplicated; F41.9 Anxiety disorder, unspecified; F03.90 Unspecified dementia, unspecified severity, without behavioral disturbance, psychotic disturbance, mood disturbance, and anxiety; Z79.2 Long term (current) use of antibiotics; Z79.899 Other long term (current) drug therapy; Z87.442 Personal history of urinary calculi; Z79.84 Long term (current) use of oral hypoglycemic drugs; Z79.4 Long term (current) use of insulin; Z95.1 Presence of aortocoronary bypass graft; Z86.73 Personal history of transient ischemic attack (TIA), and cerebral infarction without residual deficits
CPT/HCPCS: A6222; G0463; A6021; A6446

== ENCOUNTER 2018-11-01 10:37 | Day surgery (SDC) | payer MEDICARE, MEDICAID ==
[2018-11-01] MEDS ORDERED: LIDOcaine/PRILOcaine 5gm cream TP ONE (11:15)
[2018-11-01] MEDS ORDERED: hydrocortisone 1% cream 28gm TP ONE (11:50)
--- NOTE | 2018-11-01 12:26 | NUR ---
Patient ambulated independently from [facility] and was admitted to outpatient wound care for physician visit with Nilay Melvin MD. Dressing removed, wound cleansed and lidocaine applied per order. Patient assessed for changes in conditions, medications and medical history. Dr. Melvin at bedside accompanied by RN. Wound assessed, time out performed by MD/RN. Wound debrided as detailed in the physician progress/procedure note. Plan of care discussed with patient. Dressings placed per MD orders. Patient instructed on the signs and symptoms of infection and to call the Wound Center if any occur or to go to the ED if we are closed: Increased pain in wound Increase in drainage from the wound Redness in the skin surrounding the wound Bleeding from the wound Temperature of 101 or greater Patient instructed that the weight of their body puts a large amount of pressure on their wounds. This pressure keeps the new tissue from growing and inhibits new blood vessels from forming. Explained that, if they continue to bear weight on a body part that has a wound, the time it takes to heal the wound increases, the wound may get worse or the wound may not heal at all. Patient verbalized understanding of all discharge instructions and plan of care and ambulated independently out to [facility] in stable condition with no sign or symptom of distress at time of discharge. Addendum: 11/01/18 at 1226 by Phyllis Estevez RN Amended: Links added.
== END 2018-11-01 12:09 | disposition home or self-care (01) ==
LOC: WOUND CARE 10:37
PROVIDERS: ATTEND Surgery
DX: E11.622 Type 2 diabetes mellitus with other skin ulcer (principal); I70.242 Atherosclerosis of native arteries of left leg with ulceration of calf; I83.022 Varicose veins of left lower extremity with ulcer of calf; L97.221 Non-pressure chronic ulcer of left calf limited to breakdown of skin; L98.492 Non-pressure chronic ulcer of skin of other sites with fat layer exposed; I83.023 Varicose veins of left lower extremity with ulcer of ankle; L97.322 Non-pressure chronic ulcer of left ankle with fat layer exposed; E11.621 Type 2 diabetes mellitus with foot ulcer; L97.521 Non-pressure chronic ulcer of other part of left foot limited to breakdown of skin; I25.10 Atherosclerotic heart disease of native coronary artery without angina pectoris; J44.9 Chronic obstructive pulmonary disease, unspecified; I10 Essential (primary) hypertension; E11.69 Type 2 diabetes mellitus with other specified complication; M86.672 Other chronic osteomyelitis, left ankle and foot; E78.00 Pure hypercholesterolemia, unspecified; I77.1 Stricture of artery; F32.9 Major depressive disorder, single episode, unspecified; F17.210 Nicotine dependence, cigarettes, uncomplicated; F11.90 Opioid use, unspecified, uncomplicated; F17.200 Nicotine dependence, unspecified, uncomplicated; F10.10 Alcohol abuse, uncomplicated; F41.9 Anxiety disorder, unspecified; F03.90 Unspecified dementia, unspecified severity, without behavioral disturbance, psychotic disturbance, mood disturbance, and anxiety; Z79.2 Long term (current) use of antibiotics; Z79.899 Other long term (current) drug therapy; Z87.442 Personal history of urinary calculi; Z79.84 Long term (current) use of oral hypoglycemic drugs; Z79.4 Long term (current) use of insulin; Z95.1 Presence of aortocoronary bypass graft; Z86.73 Personal history of transient ischemic attack (TIA), and cerebral infarction without residual deficits
CPT/HCPCS: 97597; A6223; A6021; A6446

== ENCOUNTER 2018-11-08 10:35 | Day surgery (SDC) | payer MEDICARE, MEDICAID ==
[2018-11-08] MEDS ORDERED: hydrocortisone 1% cream 28gm TP ONE (11:29)
--- NOTE | 2018-11-08 14:02 | NUR ---
Patient ambulated independently from [facility] and was admitted to outpatient wound care for physician visit with Nilay Melvin MD. Dressing removed and wounds cleansed. Patient assessed for changes in conditions, medications and medical history. Dr. Melvin at bedside accompanied by RN. Wound assessed, time out performed by MD/RN. Wound debrided as detailed in the physician progress/procedure note. Plan of care discussed with patient. Dressings placed per MD orders. Patient instructed on the signs and symptoms of infection and to call the Wound Center if any occur or to go to the ED if we are closed: Increased pain in wound Increase in drainage from the wound Redness in the skin surrounding the wound Bleeding from the wound Temperature of 101 or greater Patient instructed that the weight of their body puts a large amount of pressure on their wounds. This pressure keeps the new tissue from growing and inhibits new blood vessels from forming. Explained that, if they continue to bear weight on a body part that has a wound, the time it takes to heal the wound increases, the wound may get worse or the wound may not heal at all. Patient verbalized understanding of all discharge instructions and plan of care and ambulated independently out to [facility] in stable condition with no sign or symptom of distress at time of discharge. Addendum: 11/08/18 at 1403 by Phyllis Estevez RN Amended: Links added.
== END 2018-11-08 12:00 | disposition home or self-care (01) ==
LOC: WOUND CARE 10:35
PROVIDERS: ATTEND Surgery
DX: E11.622 Type 2 diabetes mellitus with other skin ulcer (principal); I70.242 Atherosclerosis of native arteries of left leg with ulceration of calf; I83.022 Varicose veins of left lower extremity with ulcer of calf; L97.221 Non-pressure chronic ulcer of left calf limited to breakdown of skin; L98.492 Non-pressure chronic ulcer of skin of other sites with fat layer exposed; I83.023 Varicose veins of left lower extremity with ulcer of ankle; L97.322 Non-pressure chronic ulcer of left ankle with fat layer exposed; I83.025 Varicose veins of left lower extremity with ulcer other part of foot; E11.621 Type 2 diabetes mellitus with foot ulcer; L97.521 Non-pressure chronic ulcer of other part of left foot limited to breakdown of skin; I25.10 Atherosclerotic heart disease of native coronary artery without angina pectoris; J44.9 Chronic obstructive pulmonary disease, unspecified; I10 Essential (primary) hypertension; E11.69 Type 2 diabetes mellitus with other specified complication; M86.672 Other chronic osteomyelitis, left ankle and foot; E78.00 Pure hypercholesterolemia, unspecified; I77.1 Stricture of artery; F32.9 Major depressive disorder, single episode, unspecified; F17.210 Nicotine dependence, cigarettes, uncomplicated; F11.90 Opioid use, unspecified, uncomplicated; F17.200 Nicotine dependence, unspecified, uncomplicated; F10.10 Alcohol abuse, uncomplicated; F41.9 Anxiety disorder, unspecified; F03.90 Unspecified dementia, unspecified severity, without behavioral disturbance, psychotic disturbance, mood disturbance, and anxiety; Z79.2 Long term (current) use of antibiotics; Z79.899 Other long term (current) drug therapy; Z87.442 Personal history of urinary calculi; Z79.84 Long term (current) use of oral hypoglycemic drugs; Z79.4 Long term (current) use of insulin; Z95.1 Presence of aortocoronary bypass graft; Z86.73 Personal history of transient ischemic attack (TIA), and cerebral infarction without residual deficits
CPT/HCPCS: 97597; A6021; A6206; A6446

== ENCOUNTER 2018-11-15 10:38 | Day surgery (SDC) | payer MEDICARE, MEDICAID ==
[~2018-11-15 10:38] MED LIST changes: -ROSU10TA PO; +ROSU10TA2 PO
[2018-11-15] MEDS ORDERED: hydrocortisone 1% cream 28gm TP ONE (11:38)
--- NOTE | 2018-11-15 14:27 | NUR ---
Patient ambulated independently from [facility] and was admitted to outpatient wound care for physician visit with Nilay Melvin MD. Dressing removed and wounds cleansed. Patient assessed for changes in conditions, medications and medical history. Dr. Melvin at bedside accompanied by RN. Wound assessed, time out performed by MD/RN. Wound debrided as detailed in the physician progress/procedure note. Plan of care discussed with patient. Dressings placed per MD orders. Patient instructed on the signs and symptoms of infection and to call the Wound Center if any occur or to go to the ED if we are closed: Increased pain in wound Increase in drainage from the wound Redness in the skin surrounding the wound Bleeding from the wound Temperature of 101 or greater Patient instructed that the weight of their body puts a large amount of pressure on their wounds. This pressure keeps the new tissue from growing and inhibits new blood vessels from forming. Explained that, if they continue to bear weight on a body part that has a wound, the time it takes to heal the wound increases, the wound may get worse or the wound may not heal at all. Patient verbalized understanding of all discharge instructions and plan of care and ambulated independently out to [facility] in stable condition with no sign or symptom of distress at time of discharge. Addendum: 11/15/18 at 1428 by Phyllis Estevez RN Amended: Links added.
== END 2018-11-15 11:50 | disposition home or self-care (01) ==
LOC: WOUND CARE 10:38
PROVIDERS: ATTEND Surgery
DX: E11.622 Type 2 diabetes mellitus with other skin ulcer (principal); I70.242 Atherosclerosis of native arteries of left leg with ulceration of calf; I83.022 Varicose veins of left lower extremity with ulcer of calf; L97.221 Non-pressure chronic ulcer of left calf limited to breakdown of skin; L98.492 Non-pressure chronic ulcer of skin of other sites with fat layer exposed; I83.023 Varicose veins of left lower extremity with ulcer of ankle; L97.322 Non-pressure chronic ulcer of left ankle with fat layer exposed; I83.025 Varicose veins of left lower extremity with ulcer other part of foot; E11.621 Type 2 diabetes mellitus with foot ulcer; L97.521 Non-pressure chronic ulcer of other part of left foot limited to breakdown of skin; I25.10 Atherosclerotic heart disease of native coronary artery without angina pectoris; J44.9 Chronic obstructive pulmonary disease, unspecified; I10 Essential (primary) hypertension; E11.69 Type 2 diabetes mellitus with other specified complication; M86.672 Other chronic osteomyelitis, left ankle and foot; E78.00 Pure hypercholesterolemia, unspecified; I77.1 Stricture of artery; F32.9 Major depressive disorder, single episode, unspecified; F17.210 Nicotine dependence, cigarettes, uncomplicated; F11.90 Opioid use, unspecified, uncomplicated; F17.200 Nicotine dependence, unspecified, uncomplicated; F10.10 Alcohol abuse, uncomplicated; F41.9 Anxiety disorder, unspecified; F03.90 Unspecified dementia, unspecified severity, without behavioral disturbance, psychotic disturbance, mood disturbance, and anxiety; Z79.2 Long term (current) use of antibiotics; Z79.899 Other long term (current) drug therapy; Z87.442 Personal history of urinary calculi; Z79.84 Long term (current) use of oral hypoglycemic drugs; Z79.4 Long term (current) use of insulin; Z95.1 Presence of aortocoronary bypass graft; Z86.73 Personal history of transient ischemic attack (TIA), and cerebral infarction without residual deficits
CPT/HCPCS: 97597; A6021; A6206; A6446

== ENCOUNTER 2018-11-22 10:37 | Day surgery (SDC) | payer MEDICARE, MEDICAID ==
[2018-11-22] MEDS ORDERED: LIDOcaine/PRILOcaine 5gm cream TP ONE (11:23)
[2018-11-22] MEDS ORDERED: hydrocortisone 1% cream 28gm TP ONE (11:56)
--- NOTE | 2018-11-22 12:15 | NUR ---
Patient ambulated independently accompanied by nephew and his friend from [facility] and was admitted to outpatient wound care for physician visit with Nilay Melvin MD. Placed in contact isolation precautions per hospital policy. Dressing removed, wound cleansed and Emla cream applied per order. Patient assessed for changes in conditions, medications and medical history. 1135 - Dr. Melvin at bedside accompanied by RN. Wound assessed, time out performed by MD/RN. Wound debrided as detailed in the physician progress/procedure note. Plan of care discussed with patient. Dressings placed per MD orders. Patient instructed on the signs and symptoms of infection and to call the Wound Center if any occur or to go to the ED if we are closed: Increased pain in wound Increase in drainage from the wound Redness in the skin surrounding the wound Bleeding from the wound Temperature of 101 or greater Patient instructed that the weight of their body puts a large amount of pressure on their wounds. This pressure keeps the new tissue from growing and inhibits new blood vessels from forming. Explained that, if they continue to bear weight on a body part that has a wound, the time it takes to heal the wound increases, the wound may get worse or the wound may not heal at all. Patient verbalized understanding of all discharge instructions and plan of care and ambulated independently accompanied by his nephew and friend out to [facility] in stable condition with no sign or symptom of distress at time of discharge.
== END 2018-11-22 12:13 | disposition home or self-care (01) ==
LOC: WOUND CARE 10:37
PROVIDERS: ATTEND Surgery
DX: E11.622 Type 2 diabetes mellitus with other skin ulcer (principal); I70.242 Atherosclerosis of native arteries of left leg with ulceration of calf; I83.022 Varicose veins of left lower extremity with ulcer of calf; L97.221 Non-pressure chronic ulcer of left calf limited to breakdown of skin; L98.492 Non-pressure chronic ulcer of skin of other sites with fat layer exposed; I83.023 Varicose veins of left lower extremity with ulcer of ankle; L97.322 Non-pressure chronic ulcer of left ankle with fat layer exposed; I83.025 Varicose veins of left lower extremity with ulcer other part of foot; E11.621 Type 2 diabetes mellitus with foot ulcer; L97.521 Non-pressure chronic ulcer of other part of left foot limited to breakdown of skin; I25.10 Atherosclerotic heart disease of native coronary artery without angina pectoris; J44.9 Chronic obstructive pulmonary disease, unspecified; I10 Essential (primary) hypertension; E11.69 Type 2 diabetes mellitus with other specified complication; M86.672 Other chronic osteomyelitis, left ankle and foot; E78.00 Pure hypercholesterolemia, unspecified; I77.1 Stricture of artery; F32.9 Major depressive disorder, single episode, unspecified; F17.210 Nicotine dependence, cigarettes, uncomplicated; F11.90 Opioid use, unspecified, uncomplicated; F17.200 Nicotine dependence, unspecified, uncomplicated; F10.10 Alcohol abuse, uncomplicated; F41.9 Anxiety disorder, unspecified; F03.90 Unspecified dementia, unspecified severity, without behavioral disturbance, psychotic disturbance, mood disturbance, and anxiety; Z79.2 Long term (current) use of antibiotics; Z79.899 Other long term (current) drug therapy; Z87.442 Personal history of urinary calculi; Z79.84 Long term (current) use of oral hypoglycemic drugs; Z79.4 Long term (current) use of insulin; Z95.1 Presence of aortocoronary bypass graft; Z86.73 Personal history of transient ischemic attack (TIA), and cerebral infarction without residual deficits
CPT/HCPCS: 97597; A6222; A6021; A6446

== ENCOUNTER 2018-11-29 10:44 | Day surgery (SDC) | payer MEDICARE, MEDICAID ==
[2018-11-29] MEDS ORDERED: LIDOcaine/PRILOcaine 5gm cream TP ONE (11:22)
--- NOTE | 2018-11-29 13:50 | NUR ---
Patient ambulated independently from [facility] and was admitted to outpatient wound care for physician visit with Nilay Melvin MD. Dressing removed, wound cleansed and Emla cream applied per order. Patient assessed for changes in conditions, medications and medical history. Dr. Melvin at bedside accompanied by RN. Wound assessed, time out performed by MD/RN. Wound debrided as detailed in the physician progress/procedure note. Plan of care discussed with patient. Dressings placed per MD orders. Patient instructed on the signs and symptoms of infection and to call the Wound Center if any occur or to go to the ED if we are closed: Increased pain in wound Increase in drainage from the wound Redness in the skin surrounding the wound Bleeding from the wound Temperature of 101 or greater Patient instructed that the weight of their body puts a large amount of pressure on their wounds. This pressure keeps the new tissue from growing and inhibits new blood vessels from forming. Explained that, if they continue to bear weight on a body part that has a wound, the time it takes to heal the wound increases, the wound may get worse or the wound may not heal at all. Patient verbalized understanding of all discharge instructions and plan of care and ambulated independently out to [facility] in stable condition with no sign or symptom of distress at time of discharge. Addendum: 11/29/18 at 1351 by Phyllis Estevez RN Amended: Links added.
== END 2018-11-29 11:42 | disposition home or self-care (01) ==
LOC: WOUND CARE 10:44
PROVIDERS: ATTEND Surgery
DX: E11.622 Type 2 diabetes mellitus with other skin ulcer (principal); I70.242 Atherosclerosis of native arteries of left leg with ulceration of calf; I83.022 Varicose veins of left lower extremity with ulcer of calf; L97.221 Non-pressure chronic ulcer of left calf limited to breakdown of skin; L98.492 Non-pressure chronic ulcer of skin of other sites with fat layer exposed; I83.023 Varicose veins of left lower extremity with ulcer of ankle; L97.322 Non-pressure chronic ulcer of left ankle with fat layer exposed; I83.025 Varicose veins of left lower extremity with ulcer other part of foot; E11.621 Type 2 diabetes mellitus with foot ulcer; L97.521 Non-pressure chronic ulcer of other part of left foot limited to breakdown of skin; I25.10 Atherosclerotic heart disease of native coronary artery without angina pectoris; J44.9 Chronic obstructive pulmonary disease, unspecified; I10 Essential (primary) hypertension; E11.69 Type 2 diabetes mellitus with other specified complication; M86.672 Other chronic osteomyelitis, left ankle and foot; E78.00 Pure hypercholesterolemia, unspecified; I77.1 Stricture of artery; F32.9 Major depressive disorder, single episode, unspecified; F17.210 Nicotine dependence, cigarettes, uncomplicated; F11.90 Opioid use, unspecified, uncomplicated; F17.200 Nicotine dependence, unspecified, uncomplicated; F10.10 Alcohol abuse, uncomplicated; F41.9 Anxiety disorder, unspecified; F03.90 Unspecified dementia, unspecified severity, without behavioral disturbance, psychotic disturbance, mood disturbance, and anxiety; Z79.2 Long term (current) use of antibiotics; Z79.899 Other long term (current) drug therapy; Z87.442 Personal history of urinary calculi; Z79.84 Long term (current) use of oral hypoglycemic drugs; Z79.4 Long term (current) use of insulin; Z95.1 Presence of aortocoronary bypass graft; Z86.73 Personal history of transient ischemic attack (TIA), and cerebral infarction without residual deficits
CPT/HCPCS: 97597; A4414; A6021; A6446

== ENCOUNTER 2018-12-06 10:38 | Day surgery (SDC) | payer MEDICARE, MEDICAID ==
[2018-12-06] MEDS ORDERED: LIDOcaine/PRILOcaine 5gm cream TP ONE (11:00)
[2018-12-06] MEDS ORDERED: hydrocortisone 1% cream 28gm TP ONE (11:42)
--- NOTE | 2018-12-06 12:09 | NUR ---
Patient ambulated independently from [facility] and was admitted to outpatient wound care for physician visit with Nilay Melvin MD. Dressing removed, wound cleansed and Emla cream applied per order. Patient assessed for changes in conditions, medications and medical history. Dr. Melvin at bedside accompanied by RN. Wound assessed, time out performed by MD/RN. Wound debrided as detailed in the physician progress/procedure note. Plan of care discussed with patient. Dressings placed per MD orders. Patient instructed on the signs and symptoms of infection and to call the Wound Center if any occur or to go to the ED if we are closed: Increased pain in wound Increase in drainage from the wound Redness in the skin surrounding the wound Bleeding from the wound Temperature of 101 or greater Patient instructed that the weight of their body puts a large amount of pressure on their wounds. This pressure keeps the new tissue from growing and inhibits new blood vessels from forming. Explained that, if they continue to bear weight on a body part that has a wound, the time it takes to heal the wound increases, the wound may get worse or the wound may not heal at all. Patient verbalized understanding of all discharge instructions and plan of care and ambulated independently out to [facility] in stable condition with no sign or symptom of distress at time of discharge. Addendum: 12/06/18 at 1212 by Phyllis Estevez RN Amended: Links added.
== END 2018-12-06 12:10 | disposition home or self-care (01) ==
LOC: WOUND CARE 10:38
PROVIDERS: ATTEND Surgery
DX: E11.622 Type 2 diabetes mellitus with other skin ulcer (principal); I70.242 Atherosclerosis of native arteries of left leg with ulceration of calf; I83.022 Varicose veins of left lower extremity with ulcer of calf; L97.221 Non-pressure chronic ulcer of left calf limited to breakdown of skin; L98.492 Non-pressure chronic ulcer of skin of other sites with fat layer exposed; I83.023 Varicose veins of left lower extremity with ulcer of ankle; L97.322 Non-pressure chronic ulcer of left ankle with fat layer exposed; I83.025 Varicose veins of left lower extremity with ulcer other part of foot; E11.621 Type 2 diabetes mellitus with foot ulcer; L97.521 Non-pressure chronic ulcer of other part of left foot limited to breakdown of skin; I25.10 Atherosclerotic heart disease of native coronary artery without angina pectoris; J44.9 Chronic obstructive pulmonary disease, unspecified; I10 Essential (primary) hypertension; E11.69 Type 2 diabetes mellitus with other specified complication; M86.672 Other chronic osteomyelitis, left ankle and foot; E78.00 Pure hypercholesterolemia, unspecified; I77.1 Stricture of artery; F32.9 Major depressive disorder, single episode, unspecified; F17.210 Nicotine dependence, cigarettes, uncomplicated; F11.90 Opioid use, unspecified, uncomplicated; F17.200 Nicotine dependence, unspecified, uncomplicated; F10.10 Alcohol abuse, uncomplicated; F41.9 Anxiety disorder, unspecified; F03.90 Unspecified dementia, unspecified severity, without behavioral disturbance, psychotic disturbance, mood disturbance, and anxiety; Z79.2 Long term (current) use of antibiotics; Z79.899 Other long term (current) drug therapy; Z87.442 Personal history of urinary calculi; Z79.84 Long term (current) use of oral hypoglycemic drugs; Z79.4 Long term (current) use of insulin; Z95.1 Presence of aortocoronary bypass graft; Z86.73 Personal history of transient ischemic attack (TIA), and cerebral infarction without residual deficits
CPT/HCPCS: 87070; 87075; 87076; 87077; 87102; 87186; 97597; A4414; A6021; A6206; A6446

== ENCOUNTER 2018-12-13 10:35 | Day surgery (SDC) | payer MEDICARE, MEDICAID ==
[2018-12-13] MEDS ORDERED: LIDOcaine/PRILOcaine 5gm cream TP ONE (11:08)
--- NOTE | 2018-12-13 13:34 | NUR ---
Patient ambulated independently from [facility] and was admitted to outpatient wound care for physician visit with Nilay Melvin MD. Dressing removed, wound cleansed and Emla cream applied per order. Patient assessed for changes in conditions, medications and medical history. Dr. Melvin at bedside accompanied by RN. Wound assessed, time out performed by MD/RN. Wound debrided as detailed in the physician progress/procedure note. Plan of care discussed with patient. Dressings placed per MD orders. Patient instructed on the signs and symptoms of infection and to call the Wound Center if any occur or to go to the ED if we are closed: Increased pain in wound Increase in drainage from the wound Redness in the skin surrounding the wound Bleeding from the wound Temperature of 101 or greater Patient instructed that the weight of their body puts a large amount of pressure on their wounds. This pressure keeps the new tissue from growing and inhibits new blood vessels from forming. Explained that, if they continue to bear weight on a body part that has a wound, the time it takes to heal the wound increases, the wound may get worse or the wound may not heal at all. Patient verbalized understanding of all discharge instructions and plan of care and ambulated independently out to [facility] in stable condition with no sign or symptom of distress at time of discharge. Addendum: 12/13/18 at 1335 by Phyllis Estevez RN Amended: Links added.
== END 2018-12-13 12:11 | disposition home or self-care (01) ==
LOC: WOUND CARE 10:35
PROVIDERS: ATTEND Surgery
DX: E11.622 Type 2 diabetes mellitus with other skin ulcer (principal); I70.242 Atherosclerosis of native arteries of left leg with ulceration of calf; I83.022 Varicose veins of left lower extremity with ulcer of calf; L97.221 Non-pressure chronic ulcer of left calf limited to breakdown of skin; L98.492 Non-pressure chronic ulcer of skin of other sites with fat layer exposed; I83.023 Varicose veins of left lower extremity with ulcer of ankle; L97.322 Non-pressure chronic ulcer of left ankle with fat layer exposed; I83.025 Varicose veins of left lower extremity with ulcer other part of foot; E11.621 Type 2 diabetes mellitus with foot ulcer; L97.521 Non-pressure chronic ulcer of other part of left foot limited to breakdown of skin; I25.10 Atherosclerotic heart disease of native coronary artery without angina pectoris; J44.9 Chronic obstructive pulmonary disease, unspecified; I10 Essential (primary) hypertension; E11.69 Type 2 diabetes mellitus with other specified complication; M86.672 Other chronic osteomyelitis, left ankle and foot; E78.00 Pure hypercholesterolemia, unspecified; I77.1 Stricture of artery; F32.9 Major depressive disorder, single episode, unspecified; F17.210 Nicotine dependence, cigarettes, uncomplicated; F11.90 Opioid use, unspecified, uncomplicated; F17.200 Nicotine dependence, unspecified, uncomplicated; F10.10 Alcohol abuse, uncomplicated; F41.9 Anxiety disorder, unspecified; F03.90 Unspecified dementia, unspecified severity, without behavioral disturbance, psychotic disturbance, mood disturbance, and anxiety; Z79.2 Long term (current) use of antibiotics; Z79.899 Other long term (current) drug therapy; Z87.442 Personal history of urinary calculi; Z79.84 Long term (current) use of oral hypoglycemic drugs; Z79.4 Long term (current) use of insulin; Z95.1 Presence of aortocoronary bypass graft; Z86.73 Personal history of transient ischemic attack (TIA), and cerebral infarction without residual deficits
CPT/HCPCS: 97597; A6446

== ENCOUNTER 2018-12-20 10:38 | Day surgery (SDC) | payer MEDICARE, MEDICAID ==
[2018-12-20] MEDS ORDERED: LIDOcaine/PRILOcaine 5gm cream TP ONE (11:15)
[2018-12-20] MEDS ORDERED: gentamicin 0.1% topical ointment 15gm TP ONE (11:23)
--- NOTE | 2018-12-20 11:52 | NUR ---
Patient ambulated independently from [facility] and was admitted to outpatient wound care for physician visit with Nilay Melvin MD. Dressing removed, wound cleansed and Emla cream applied per order. Patient assessed for changes in conditions, medications and medical history. Dr. Melvin at bedside accompanied by RN. Wound assessed, time out performed by MD/RN. Wound debrided as detailed in the physician progress/procedure note. Plan of care discussed with patient. Dressings placed per MD orders. Patient instructed on the signs and symptoms of infection and to call the Wound Center if any occur or to go to the ED if we are closed: Increased pain in wound Increase in drainage from the wound Redness in the skin surrounding the wound Bleeding from the wound Temperature of 101 or greater Patient instructed that the weight of their body puts a large amount of pressure on their wounds. This pressure keeps the new tissue from growing and inhibits new blood vessels from forming. Explained that, if they continue to bear weight on a body part that has a wound, the time it takes to heal the wound increases, the wound may get worse or the wound may not heal at all. Patient verbalized understanding of all discharge instructions and plan of care and ambulated independently out to [facility] in stable condition with no sign or symptom of distress at time of discharge. Addendum: 12/20/18 at 1153 by Phyllis Estevez RN Amended: Links added.
== END 2018-12-20 11:38 | disposition home or self-care (01) ==
LOC: WOUND CARE 10:38
PROVIDERS: ATTEND Surgery
DX: E11.622 Type 2 diabetes mellitus with other skin ulcer (principal); L97.822 Non-pressure chronic ulcer of other part of left lower leg with fat layer exposed; I70.242 Atherosclerosis of native arteries of left leg with ulceration of calf; I83.022 Varicose veins of left lower extremity with ulcer of calf; L97.221 Non-pressure chronic ulcer of left calf limited to breakdown of skin; L98.492 Non-pressure chronic ulcer of skin of other sites with fat layer exposed; I83.023 Varicose veins of left lower extremity with ulcer of ankle; L97.322 Non-pressure chronic ulcer of left ankle with fat layer exposed; I83.025 Varicose veins of left lower extremity with ulcer other part of foot; E11.621 Type 2 diabetes mellitus with foot ulcer; L97.521 Non-pressure chronic ulcer of other part of left foot limited to breakdown of skin; I25.10 Atherosclerotic heart disease of native coronary artery without angina pectoris; J44.9 Chronic obstructive pulmonary disease, unspecified; I10 Essential (primary) hypertension; E11.69 Type 2 diabetes mellitus with other specified complication; M86.672 Other chronic osteomyelitis, left ankle and foot; E78.00 Pure hypercholesterolemia, unspecified; I77.1 Stricture of artery; F32.9 Major depressive disorder, single episode, unspecified; F17.210 Nicotine dependence, cigarettes, uncomplicated; F11.90 Opioid use, unspecified, uncomplicated; F17.200 Nicotine dependence, unspecified, uncomplicated; F10.10 Alcohol abuse, uncomplicated; F41.9 Anxiety disorder, unspecified; F03.90 Unspecified dementia, unspecified severity, without behavioral disturbance, psychotic disturbance, mood disturbance, and anxiety; Z79.2 Long term (current) use of antibiotics; Z79.899 Other long term (current) drug therapy; Z87.442 Personal history of urinary calculi; Z79.84 Long term (current) use of oral hypoglycemic drugs; Z79.4 Long term (current) use of insulin; Z95.1 Presence of aortocoronary bypass graft; Z86.73 Personal history of transient ischemic attack (TIA), and cerebral infarction without residual deficits
CPT/HCPCS: 97597; A6206; A6446

== ENCOUNTER 2019-01-03 10:35 | Day surgery (SDC) | payer MEDICARE, MEDICAID ==
[2019-01-03] MEDS ORDERED: LIDOcaine/PRILOcaine 5gm cream TP ONE (11:10)
[2019-01-03] MEDS ORDERED: hydrocortisone 1% cream 28gm TP ONE (11:45)
--- NOTE | 2019-01-03 13:04 | NUR ---
1030 Patient ambulated safely into [facility]. Patient admitted to outpatient wound care clinic for follow-up visit with physician. Patient placed in isolation per isolation protocol. Dressing removed, wound cleansed. Patient assessed for changes in conditions, medications and medical history. Patient showed no s/s of distress at time of assessment. 1130 at bedside accompanied by RN. Wounds assessed, time out performed and debridement done today as detailed in the physician progress/procedure note. Plan of care discussed with patient. Dressings placed per MD orders. Patient instructed on the signs and symptoms of infection and to call the Wound Center if any occur or to go to the ED if we are closed: Increased pain in wound Increase in drainage from the wound Redness in the skin surrounding the wound Bleeding from the wound Temperature of 101 or greater Patient instructed that the weight of their body puts a large amount of pressure on their wounds. This pressure keeps the new tissue from growing and inhibits new blood vessels from forming. Explained that, if they continue to bear weight on a body part that has a wound, the time it takes to heal the wound increases, the wound may get worse or the wound may not heal at all. Patient verbalized understanding of all discharge instructions and plan of care. Patient ambulated independently out to [facility] and is in stable condition with no sign or symptom of distress at time of discharge.
== END 2019-01-03 12:09 | disposition home or self-care (01) ==
LOC: WOUND CARE 10:35
PROVIDERS: ATTEND Surgery
DX: E11.622 Type 2 diabetes mellitus with other skin ulcer (principal); L97.822 Non-pressure chronic ulcer of other part of left lower leg with fat layer exposed; I70.242 Atherosclerosis of native arteries of left leg with ulceration of calf; I83.022 Varicose veins of left lower extremity with ulcer of calf; L97.221 Non-pressure chronic ulcer of left calf limited to breakdown of skin; L98.492 Non-pressure chronic ulcer of skin of other sites with fat layer exposed; I83.023 Varicose veins of left lower extremity with ulcer of ankle; L97.322 Non-pressure chronic ulcer of left ankle with fat layer exposed; I83.025 Varicose veins of left lower extremity with ulcer other part of foot; E11.621 Type 2 diabetes mellitus with foot ulcer; L97.521 Non-pressure chronic ulcer of other part of left foot limited to breakdown of skin; I25.10 Atherosclerotic heart disease of native coronary artery without angina pectoris; J44.9 Chronic obstructive pulmonary disease, unspecified; I10 Essential (primary) hypertension; E11.69 Type 2 diabetes mellitus with other specified complication; M86.672 Other chronic osteomyelitis, left ankle and foot; E78.00 Pure hypercholesterolemia, unspecified; I77.1 Stricture of artery; F32.9 Major depressive disorder, single episode, unspecified; F17.210 Nicotine dependence, cigarettes, uncomplicated; F11.90 Opioid use, unspecified, uncomplicated; F17.200 Nicotine dependence, unspecified, uncomplicated; F10.10 Alcohol abuse, uncomplicated; F41.9 Anxiety disorder, unspecified; F03.90 Unspecified dementia, unspecified severity, without behavioral disturbance, psychotic disturbance, mood disturbance, and anxiety; Z79.2 Long term (current) use of antibiotics; Z79.899 Other long term (current) drug therapy; Z87.442 Personal history of urinary calculi; Z79.84 Long term (current) use of oral hypoglycemic drugs; Z79.4 Long term (current) use of insulin; Z95.1 Presence of aortocoronary bypass graft; Z86.73 Personal history of transient ischemic attack (TIA), and cerebral infarction without residual deficits
CPT/HCPCS: 97597; A6222; A6021; A6446

== ENCOUNTER 2019-01-10 10:36 | Day surgery (SDC) | payer MEDICARE, MEDICAID ==
[2019-01-10] MEDS ORDERED: LIDOcaine/PRILOcaine 5gm cream TP ONE (10:55)
[2019-01-10] MEDS ORDERED: hydrocortisone 1% cream 28gm TP ONE (11:40)
--- NOTE | 2019-01-10 13:41 | NUR ---
Patient ambulated independently from [facility] and was admitted to outpatient wound care for physician visit with Nilay Melvin MD. Dressing removed, wound cleansed and lidocaine applied per order. Patient assessed for changes in conditions, medications and medical history. Dr. Melvin at bedside accompanied by RN. Wound assessed, time out performed by MD/RN. Wound debrided as detailed in the physician progress/procedure note. Plan of care discussed with patient. Dressings placed per MD orders. Patient instructed on the signs and symptoms of infection and to call the Wound Center if any occur or to go to the ED if we are closed: Increased pain in wound Increase in drainage from the wound Redness in the skin surrounding the wound Bleeding from the wound Temperature of 101 or greater Patient instructed that the weight of their body puts a large amount of pressure on their wounds. This pressure keeps the new tissue from growing and inhibits new blood vessels from forming. Explained that, if they continue to bear weight on a body part that has a wound, the time it takes to heal the wound increases, the wound may get worse or the wound may not heal at all. Patient verbalized understanding of all discharge instructions and plan of care and ambulated independently out to [facility] in stable condition with no sign or symptom of distress at time of discharge Addendum: 01/10/19 at 1342 by Phyllis Estevez RN Amended: Links added.
== END 2019-01-10 12:45 | disposition home or self-care (01) ==
LOC: WOUND CARE 10:36
PROVIDERS: ATTEND Surgery
DX: E11.622 Type 2 diabetes mellitus with other skin ulcer (principal); I70.248 Atherosclerosis of native arteries of left leg with ulceration of other part of lower leg; L97.822 Non-pressure chronic ulcer of other part of left lower leg with fat layer exposed; I70.242 Atherosclerosis of native arteries of left leg with ulceration of calf; I83.022 Varicose veins of left lower extremity with ulcer of calf; L97.221 Non-pressure chronic ulcer of left calf limited to breakdown of skin; L98.492 Non-pressure chronic ulcer of skin of other sites with fat layer exposed; I83.023 Varicose veins of left lower extremity with ulcer of ankle; L97.322 Non-pressure chronic ulcer of left ankle with fat layer exposed; I83.025 Varicose veins of left lower extremity with ulcer other part of foot; E11.621 Type 2 diabetes mellitus with foot ulcer; L97.521 Non-pressure chronic ulcer of other part of left foot limited to breakdown of skin; I25.10 Atherosclerotic heart disease of native coronary artery without angina pectoris; J44.9 Chronic obstructive pulmonary disease, unspecified; I10 Essential (primary) hypertension; E11.69 Type 2 diabetes mellitus with other specified complication; M86.672 Other chronic osteomyelitis, left ankle and foot; E78.00 Pure hypercholesterolemia, unspecified; I77.1 Stricture of artery; F32.9 Major depressive disorder, single episode, unspecified; F17.210 Nicotine dependence, cigarettes, uncomplicated; F11.90 Opioid use, unspecified, uncomplicated; F17.200 Nicotine dependence, unspecified, uncomplicated; F10.10 Alcohol abuse, uncomplicated; F41.9 Anxiety disorder, unspecified; F03.90 Unspecified dementia, unspecified severity, without behavioral disturbance, psychotic disturbance, mood disturbance, and anxiety; Z79.2 Long term (current) use of antibiotics; Z79.899 Other long term (current) drug therapy; Z87.442 Personal history of urinary calculi; Z79.84 Long term (current) use of oral hypoglycemic drugs; Z79.4 Long term (current) use of insulin; Z95.1 Presence of aortocoronary bypass graft; Z86.73 Personal history of transient ischemic attack (TIA), and cerebral infarction without residual deficits
CPT/HCPCS: 97597; A6222; A6021; A6446

== ENCOUNTER 2019-01-17 10:30 | Day surgery (SDC) | payer MEDICARE, MEDICAID ==
[2019-01-17] MEDS ORDERED: LIDOcaine/PRILOcaine 5gm cream TP ONE (11:48)
[2019-01-17] MEDS ORDERED: hydrocortisone 1% cream 28gm TP ONE (12:04)
--- NOTE | 2019-01-17 12:54 | NUR ---
Patient ambulated independently from [facility] and was admitted to outpatient wound care for physician visit with Nilay Melvin MD. Dressing removed, wound cleansed and Emla cream applied per order. Patient assessed for changes in conditions, medications and medical history. Dr. Melvin at bedside accompanied by RN. Wound assessed, time out performed by MD/RN. Wound debrided as detailed in the physician progress/procedure note. Plan of care discussed with patient. Dressings placed per MD orders. Patient instructed on the signs and symptoms of infection and to call the Wound Center if any occur or to go to the ED if we are closed: Increased pain in wound Increase in drainage from the wound Redness in the skin surrounding the wound Bleeding from the wound Temperature of 101 or greater Patient instructed that the weight of their body puts a large amount of pressure on their wounds. This pressure keeps the new tissue from growing and inhibits new blood vessels from forming. Explained that, if they continue to bear weight on a body part that has a wound, the time it takes to heal the wound increases, the wound may get worse or the wound may not heal at all. Patient verbalized understanding of all discharge instructions and plan of care and ambulated independently out to [facility] in stable condition with no sign or symptom of distress at time of discharge. Addendum: 01/17/19 at 1255 by Phyllis Estevez RN Amended: Links added.
== END 2019-01-17 12:20 | disposition home or self-care (01) ==
LOC: WOUND CARE 10:30
PROVIDERS: ATTEND Surgery
DX: E11.622 Type 2 diabetes mellitus with other skin ulcer (principal); I70.248 Atherosclerosis of native arteries of left leg with ulceration of other part of lower leg; L97.822 Non-pressure chronic ulcer of other part of left lower leg with fat layer exposed; I70.242 Atherosclerosis of native arteries of left leg with ulceration of calf; I83.022 Varicose veins of left lower extremity with ulcer of calf; L97.221 Non-pressure chronic ulcer of left calf limited to breakdown of skin; L98.492 Non-pressure chronic ulcer of skin of other sites with fat layer exposed; I83.023 Varicose veins of left lower extremity with ulcer of ankle; L97.322 Non-pressure chronic ulcer of left ankle with fat layer exposed; I83.025 Varicose veins of left lower extremity with ulcer other part of foot; E11.621 Type 2 diabetes mellitus with foot ulcer; L97.521 Non-pressure chronic ulcer of other part of left foot limited to breakdown of skin; I25.10 Atherosclerotic heart disease of native coronary artery without angina pectoris; J44.9 Chronic obstructive pulmonary disease, unspecified; I10 Essential (primary) hypertension; E11.69 Type 2 diabetes mellitus with other specified complication; M86.672 Other chronic osteomyelitis, left ankle and foot; E78.00 Pure hypercholesterolemia, unspecified; I77.1 Stricture of artery; F32.9 Major depressive disorder, single episode, unspecified; F17.210 Nicotine dependence, cigarettes, uncomplicated; F11.90 Opioid use, unspecified, uncomplicated; F10.10 Alcohol abuse, uncomplicated; F41.9 Anxiety disorder, unspecified; F03.90 Unspecified dementia, unspecified severity, without behavioral disturbance, psychotic disturbance, mood disturbance, and anxiety; Z79.2 Long term (current) use of antibiotics; Z79.899 Other long term (current) drug therapy; Z87.442 Personal history of urinary calculi; Z79.84 Long term (current) use of oral hypoglycemic drugs; Z79.4 Long term (current) use of insulin; Z95.1 Presence of aortocoronary bypass graft; Z86.73 Personal history of transient ischemic attack (TIA), and cerebral infarction without residual deficits
CPT/HCPCS: 97597; A6222; A6021; A6446

== ENCOUNTER 2019-01-24 10:30 | Day surgery (SDC) | payer MEDICARE, MEDICAID ==
[2019-01-24] MEDS ORDERED: LIDOcaine/PRILOcaine 5gm cream TP ONE (11:25)
[2019-01-24] MEDS ORDERED: hydrocortisone 1% cream 28gm TP ONE (11:36)
--- NOTE | 2019-01-24 12:15 | NUR ---
Patient ambulated independently accompanied by yoana Johnson from [facility] and was admitted to outpatient wound care for physician visit with Nilay Melvin MD. Placed in contact isolation precautions per hospital policy. Dressing removed, wound cleansed and Emla cream applied per order. Patient assessed for changes in conditions, medications and medical history. 1130 - Dr. Melvin at bedside accompanied by RN. Wound assessed, time out performed by MD/RN. Wound debrided as detailed in the physician progress/procedure note. Plan of care discussed with patient. Dressings placed per MD orders. Patient instructed on the signs and symptoms of infection and to call the Wound Center if any occur or to go to the ED if we are closed: Increased pain in wound Increase in drainage from the wound Redness in the skin surrounding the wound Bleeding from the wound Temperature of 101 or greater Patient instructed that the weight of their body puts a large amount of pressure on their wounds. This pressure keeps the new tissue from growing and inhibits new blood vessels from forming. Explained that, if they continue to bear weight on a body part that has a wound, the time it takes to heal the wound increases, the wound may get worse or the wound may not heal at all. Patient and Elizabeth verbalized understanding of all discharge instructions and plan of care and patient ambulated independently accompanied by Elizabeth out to [facility] in stable condition with no sign or symptom of distress at time of discharge.
== END 2019-01-24 11:38 | disposition home or self-care (01) ==
LOC: WOUND CARE 10:30
PROVIDERS: ATTEND Surgery
DX: E11.622 Type 2 diabetes mellitus with other skin ulcer (principal); I70.248 Atherosclerosis of native arteries of left leg with ulceration of other part of lower leg; L97.822 Non-pressure chronic ulcer of other part of left lower leg with fat layer exposed; I70.242 Atherosclerosis of native arteries of left leg with ulceration of calf; I83.022 Varicose veins of left lower extremity with ulcer of calf; L97.221 Non-pressure chronic ulcer of left calf limited to breakdown of skin; L98.492 Non-pressure chronic ulcer of skin of other sites with fat layer exposed; I83.023 Varicose veins of left lower extremity with ulcer of ankle; L97.322 Non-pressure chronic ulcer of left ankle with fat layer exposed; I83.025 Varicose veins of left lower extremity with ulcer other part of foot; E11.621 Type 2 diabetes mellitus with foot ulcer; L97.521 Non-pressure chronic ulcer of other part of left foot limited to breakdown of skin; I25.10 Atherosclerotic heart disease of native coronary artery without angina pectoris; J44.9 Chronic obstructive pulmonary disease, unspecified; I10 Essential (primary) hypertension; E11.69 Type 2 diabetes mellitus with other specified complication; M86.672 Other chronic osteomyelitis, left ankle and foot; E78.00 Pure hypercholesterolemia, unspecified; I77.1 Stricture of artery; F32.9 Major depressive disorder, single episode, unspecified; F17.210 Nicotine dependence, cigarettes, uncomplicated; F11.90 Opioid use, unspecified, uncomplicated; F10.10 Alcohol abuse, uncomplicated; F41.9 Anxiety disorder, unspecified; F03.90 Unspecified dementia, unspecified severity, without behavioral disturbance, psychotic disturbance, mood disturbance, and anxiety; Z79.2 Long term (current) use of antibiotics; Z79.899 Other long term (current) drug therapy; Z87.442 Personal history of urinary calculi; Z79.84 Long term (current) use of oral hypoglycemic drugs; Z79.4 Long term (current) use of insulin; Z95.1 Presence of aortocoronary bypass graft; Z86.73 Personal history of transient ischemic attack (TIA), and cerebral infarction without residual deficits
CPT/HCPCS: 97597; A6021; A6206; A6446

== ENCOUNTER 2019-02-07 10:32 | Day surgery (SDC) | payer MEDICARE, MEDICAID ==
[2019-02-07] MEDS ORDERED: LIDOcaine/PRILOcaine 5gm cream TP ONE (11:32)
--- NOTE | 2019-02-07 12:27 | NUR ---
Patient ambulated independently from [facility] and was admitted to outpatient wound care for physician visit with Nilay Melvin MD. Dressing removed, wound cleansed and Emla cream applied per order. Patient assessed for changes in conditions, medications and medical history. Dr. Melvin at bedside accompanied by RN. Wound assessed, time out performed by MD/RN. Wound debrided as detailed in the physician progress/procedure note. Plan of care discussed with patient. Dressings placed per MD orders. Patient instructed on the signs and symptoms of infection and to call the Wound Center if any occur or to go to the ED if we are closed: Increased pain in wound Increase in drainage from the wound Redness in the skin surrounding the wound Bleeding from the wound Temperature of 101 or greater Patient instructed that the weight of their body puts a large amount of pressure on their wounds. This pressure keeps the new tissue from growing and inhibits new blood vessels from forming. Explained that, if they continue to bear weight on a body part that has a wound, the time it takes to heal the wound increases, the wound may get worse or the wound may not heal at all. Patient verbalized understanding of all discharge instructions and plan of care and ambulated independently out to [facility] in stable condition with no sign or symptom of distress at time of discharge. Addendum: 02/07/19 at 1230 by Phyllis Estevez RN Amended: Links added.
== END 2019-02-07 11:59 | disposition home or self-care (01) ==
LOC: WOUND CARE 10:32
PROVIDERS: ATTEND Surgery
DX: E11.622 Type 2 diabetes mellitus with other skin ulcer (principal); I70.248 Atherosclerosis of native arteries of left leg with ulceration of other part of lower leg; L97.822 Non-pressure chronic ulcer of other part of left lower leg with fat layer exposed; I70.242 Atherosclerosis of native arteries of left leg with ulceration of calf; I83.022 Varicose veins of left lower extremity with ulcer of calf; L97.221 Non-pressure chronic ulcer of left calf limited to breakdown of skin; L98.492 Non-pressure chronic ulcer of skin of other sites with fat layer exposed; I83.023 Varicose veins of left lower extremity with ulcer of ankle; L97.322 Non-pressure chronic ulcer of left ankle with fat layer exposed; I83.025 Varicose veins of left lower extremity with ulcer other part of foot; E11.621 Type 2 diabetes mellitus with foot ulcer; L97.522 Non-pressure chronic ulcer of other part of left foot with fat layer exposed; I25.10 Atherosclerotic heart disease of native coronary artery without angina pectoris; J44.9 Chronic obstructive pulmonary disease, unspecified; I10 Essential (primary) hypertension; E11.69 Type 2 diabetes mellitus with other specified complication; M86.672 Other chronic osteomyelitis, left ankle and foot; E78.00 Pure hypercholesterolemia, unspecified; I77.1 Stricture of artery; F32.9 Major depressive disorder, single episode, unspecified; F17.210 Nicotine dependence, cigarettes, uncomplicated; F11.90 Opioid use, unspecified, uncomplicated; F10.10 Alcohol abuse, uncomplicated; F41.9 Anxiety disorder, unspecified; F03.90 Unspecified dementia, unspecified severity, without behavioral disturbance, psychotic disturbance, mood disturbance, and anxiety; Z79.2 Long term (current) use of antibiotics; Z79.899 Other long term (current) drug therapy; Z87.442 Personal history of urinary calculi; Z79.84 Long term (current) use of oral hypoglycemic drugs; Z79.4 Long term (current) use of insulin; Z95.1 Presence of aortocoronary bypass graft; Z86.73 Personal history of transient ischemic attack (TIA), and cerebral infarction without residual deficits
CPT/HCPCS: 97597; A6021; A6206

== ENCOUNTER 2019-03-14 10:28 | Day surgery (SDC) | payer MEDICARE, MEDICAID ==
[2019-03-14] MEDS ORDERED: LIDOcaine/PRILOcaine 5gm cream TP ONE (11:07)
--- NOTE | 2019-03-14 13:50 | NUR ---
Patient ambulated independently from [facility] and was admitted to outpatient wound care for physician visit with Nilay Melvin MD. Dressing removed, wound cleansed and Emla cream applied per order. Patient assessed for changes in conditions, medications and medical history. Dr. Melvin at bedside accompanied by RN. Wound assessed, time out performed by MD/RN. Wound debrided as detailed in the physician progress/procedure note. Plan of care discussed with patient. Dressings placed per MD orders. Patient instructed on the signs and symptoms of infection and to call the Wound Center if any occur or to go to the ED if we are closed: Increased pain in wound Increase in drainage from the wound Redness in the skin surrounding the wound Bleeding from the wound Temperature of 101 or greater Patient instructed that the weight of their body puts a large amount of pressure on their wounds. This pressure keeps the new tissue from growing and inhibits new blood vessels from forming. Explained that, if they continue to bear weight on a body part that has a wound, the time it takes to heal the wound increases, the wound may get worse or the wound may not heal at all. Patient verbalized understanding of all discharge instructions and plan of care and ambulated independently out to [facility] in stable condition with no sign or symptom of distress at time of discharge. Addendum: 03/14/19 at 1353 by Phyllis Estevez RN Amended: Links added.
== END 2019-03-14 11:50 | disposition home or self-care (01) ==
LOC: WOUND CARE 10:28
PROVIDERS: ATTEND Surgery
DX: E11.622 Type 2 diabetes mellitus with other skin ulcer (principal); I70.248 Atherosclerosis of native arteries of left leg with ulceration of other part of lower leg; L97.822 Non-pressure chronic ulcer of other part of left lower leg with fat layer exposed; I70.242 Atherosclerosis of native arteries of left leg with ulceration of calf; I83.022 Varicose veins of left lower extremity with ulcer of calf; L97.221 Non-pressure chronic ulcer of left calf limited to breakdown of skin; L98.492 Non-pressure chronic ulcer of skin of other sites with fat layer exposed; I83.023 Varicose veins of left lower extremity with ulcer of ankle; L97.322 Non-pressure chronic ulcer of left ankle with fat layer exposed; I83.025 Varicose veins of left lower extremity with ulcer other part of foot; E11.621 Type 2 diabetes mellitus with foot ulcer; L97.522 Non-pressure chronic ulcer of other part of left foot with fat layer exposed; I25.10 Atherosclerotic heart disease of native coronary artery without angina pectoris; J44.9 Chronic obstructive pulmonary disease, unspecified; I10 Essential (primary) hypertension; E11.69 Type 2 diabetes mellitus with other specified complication; M86.672 Other chronic osteomyelitis, left ankle and foot; E78.00 Pure hypercholesterolemia, unspecified; I77.1 Stricture of artery; F32.9 Major depressive disorder, single episode, unspecified; F17.210 Nicotine dependence, cigarettes, uncomplicated; F11.90 Opioid use, unspecified, uncomplicated; F10.10 Alcohol abuse, uncomplicated; F41.9 Anxiety disorder, unspecified; F03.90 Unspecified dementia, unspecified severity, without behavioral disturbance, psychotic disturbance, mood disturbance, and anxiety; Z79.2 Long term (current) use of antibiotics; Z79.899 Other long term (current) drug therapy; Z87.442 Personal history of urinary calculi; Z79.84 Long term (current) use of oral hypoglycemic drugs; Z79.4 Long term (current) use of insulin; Z95.1 Presence of aortocoronary bypass graft; Z86.73 Personal history of transient ischemic attack (TIA), and cerebral infarction without residual deficits
CPT/HCPCS: 97597; A6021; A6206; A6446

== ENCOUNTER 2019-03-21 10:36 | Day surgery (SDC) | payer MEDICARE, MEDICAID ==
--- NOTE | 2019-03-21 13:45 | NUR ---
Patient ambulated independently from [facility] and was admitted to outpatient wound care for physician visit with Nilay Melvin MD. Dressing removed, wound cleansed and lidocaine applied per order. Patient assessed for changes in conditions, medications and medical history. Dr. Melvin at bedside accompanied by RN. Wound assessed, time out performed by MD/RN. Wound debrided as detailed in the physician progress/procedure note. Plan of care discussed with patient. Dressings placed per MD orders. Patient instructed on the signs and symptoms of infection and to call the Wound Center if any occur or to go to the ED if we are closed: Increased pain in wound Increase in drainage from the wound Redness in the skin surrounding the wound Bleeding from the wound Temperature of 101 or greater Patient instructed that the weight of their body puts a large amount of pressure on their wounds. This pressure keeps the new tissue from growing and inhibits new blood vessels from forming. Explained that, if they continue to bear weight on a body part that has a wound, the time it takes to heal the wound increases, the wound may get worse or the wound may not heal at all. Patient verbalized understanding of all discharge instructions and plan of care and ambulated independently out to [facility] in stable condition with no sign or symptom of distress at time of discharge. Addendum: 03/21/19 at 1346 by Phyllis Estevez RN Amended: Links added.
== END 2019-03-21 12:04 | disposition home or self-care (01) ==
LOC: WOUND CARE 10:36
PROVIDERS: ATTEND Surgery
DX: E11.622 Type 2 diabetes mellitus with other skin ulcer (principal); I70.248 Atherosclerosis of native arteries of left leg with ulceration of other part of lower leg; L97.822 Non-pressure chronic ulcer of other part of left lower leg with fat layer exposed; I70.242 Atherosclerosis of native arteries of left leg with ulceration of calf; I83.022 Varicose veins of left lower extremity with ulcer of calf; L97.221 Non-pressure chronic ulcer of left calf limited to breakdown of skin; L98.492 Non-pressure chronic ulcer of skin of other sites with fat layer exposed; I83.023 Varicose veins of left lower extremity with ulcer of ankle; L97.322 Non-pressure chronic ulcer of left ankle with fat layer exposed; I83.025 Varicose veins of left lower extremity with ulcer other part of foot; E11.621 Type 2 diabetes mellitus with foot ulcer; L97.522 Non-pressure chronic ulcer of other part of left foot with fat layer exposed; I25.10 Atherosclerotic heart disease of native coronary artery without angina pectoris; J44.9 Chronic obstructive pulmonary disease, unspecified; I10 Essential (primary) hypertension; E11.69 Type 2 diabetes mellitus with other specified complication; M86.672 Other chronic osteomyelitis, left ankle and foot; E78.00 Pure hypercholesterolemia, unspecified; I77.1 Stricture of artery; F32.9 Major depressive disorder, single episode, unspecified; F17.210 Nicotine dependence, cigarettes, uncomplicated; F11.90 Opioid use, unspecified, uncomplicated; F10.10 Alcohol abuse, uncomplicated; F41.9 Anxiety disorder, unspecified; F03.90 Unspecified dementia, unspecified severity, without behavioral disturbance, psychotic disturbance, mood disturbance, and anxiety; Z79.2 Long term (current) use of antibiotics; Z79.899 Other long term (current) drug therapy; Z87.442 Personal history of urinary calculi; Z79.84 Long term (current) use of oral hypoglycemic drugs; Z79.4 Long term (current) use of insulin; Z95.1 Presence of aortocoronary bypass graft; Z86.73 Personal history of transient ischemic attack (TIA), and cerebral infarction without residual deficits
CPT/HCPCS: 11042; 87070; 87075; 87077; 87102; 87186; A6222; 97597; A4663; A6021; A6446

== ENCOUNTER 2019-03-27 10:45 | Day surgery (SDC) | payer MEDICARE, MEDICAID ==
[~2019-03-27 10:45] MED LIST changes: -LISI1TAB11 PO; +LISI1TAB28 PO
[2019-03-27] MEDS ORDERED: LIDOcaine 2% 5ml jelly ONE (11:33)
[2019-03-27] MEDS ORDERED: CADEXOMER IODINE TP ONE (12:16)
--- NOTE | 2019-03-27 16:42 | NUR ---
Patient arrived safely into [facility] via ambulation. Patient admitted to outpatient wound care clinic for visit with Nilay Melvin MD. Dressing removed, wound cleansed and lidocaine applied per order. Patient assessed and medications and medical history reviewed. Dr. Melvin at bedside accompanied by RN. Wound assessed, time out performed by MD/RN. Wound debrided as detailed in the physician progress/procedure note. Plan of care discussed with patient. Dressings placed per MD orders. Patient instructed on the signs and symptoms of infection and to call the Wound Center if any occur or to go to the ED if we are closed: Increased pain in wound Increase in drainage from the wound Redness in the skin surrounding the wound Bleeding from the wound Temperature of 101 or greater Patient instructed that the weight of their body puts a large amount of pressure on their wounds. This pressure keeps the new tissue from growing and inhibits new blood vessels from forming. Explained that, if they continue to bear weight on a body part that has a wound, the time it takes to heal the wound increases, the wound may get worse or the wound may not heal at all. Patient verbalized understanding of all discharge instructions and plan of care. Patient left in stable condition with no sign or symptom of distress at time of discharge. Addendum: 03/27/19 at 1643 by Vasu Camilo RN Amended: Links added.
== END 2019-03-27 12:26 | disposition home or self-care (01) ==
LOC: WOUND CARE 10:45
PROVIDERS: ATTEND Surgery
DX: E11.622 Type 2 diabetes mellitus with other skin ulcer (principal); I70.248 Atherosclerosis of native arteries of left leg with ulceration of other part of lower leg; L97.822 Non-pressure chronic ulcer of other part of left lower leg with fat layer exposed; I70.242 Atherosclerosis of native arteries of left leg with ulceration of calf; I83.022 Varicose veins of left lower extremity with ulcer of calf; L97.221 Non-pressure chronic ulcer of left calf limited to breakdown of skin; L98.492 Non-pressure chronic ulcer of skin of other sites with fat layer exposed; I83.023 Varicose veins of left lower extremity with ulcer of ankle; L97.322 Non-pressure chronic ulcer of left ankle with fat layer exposed; I83.025 Varicose veins of left lower extremity with ulcer other part of foot; E11.621 Type 2 diabetes mellitus with foot ulcer; L97.522 Non-pressure chronic ulcer of other part of left foot with fat layer exposed; I25.10 Atherosclerotic heart disease of native coronary artery without angina pectoris; J44.9 Chronic obstructive pulmonary disease, unspecified; I10 Essential (primary) hypertension; E11.69 Type 2 diabetes mellitus with other specified complication; M86.672 Other chronic osteomyelitis, left ankle and foot; E78.00 Pure hypercholesterolemia, unspecified; I77.1 Stricture of artery; F32.9 Major depressive disorder, single episode, unspecified; F17.210 Nicotine dependence, cigarettes, uncomplicated; F11.90 Opioid use, unspecified, uncomplicated; F10.10 Alcohol abuse, uncomplicated; F41.9 Anxiety disorder, unspecified; F03.90 Unspecified dementia, unspecified severity, without behavioral disturbance, psychotic disturbance, mood disturbance, and anxiety; Z79.2 Long term (current) use of antibiotics; Z79.899 Other long term (current) drug therapy; Z87.442 Personal history of urinary calculi; Z79.84 Long term (current) use of oral hypoglycemic drugs; Z79.4 Long term (current) use of insulin; Z95.1 Presence of aortocoronary bypass graft; Z86.73 Personal history of transient ischemic attack (TIA), and cerebral infarction without residual deficits
CPT/HCPCS: 97597; A4663; A6446

== ENCOUNTER 2019-04-04 10:37 | Day surgery (SDC) | payer MEDICARE, MEDICAID ==
[2019-04-04] MEDS ORDERED: LIDOcaine 2% 5ml jelly ONE (10:59)
[2019-04-04] MEDS ORDERED: CADEXOMER IODINE TP ONE (11:30)
--- NOTE | 2019-04-04 12:27 | NUR ---
Patient ambulated independently from [facility] and was admitted to outpatient wound care for physician visit with Nilay Melvin MD. Dressing removed, wound cleansed and lidocaine applied per order. Patient assessed for changes in conditions, medications and medical history. Dr. Melvin at bedside accompanied by RN. Wound assessed, time out performed by MD/RN. Wound debrided as detailed in the physician progress/procedure note. Plan of care discussed with patient. Dressings placed per MD orders. Patient instructed on the signs and symptoms of infection and to call the Wound Center if any occur or to go to the ED if we are closed: Increased pain in wound Increase in drainage from the wound Redness in the skin surrounding the wound Bleeding from the wound Temperature of 101 or greater Patient instructed that the weight of their body puts a large amount of pressure on their wounds. This pressure keeps the new tissue from growing and inhibits new blood vessels from forming. Explained that, if they continue to bear weight on a body part that has a wound, the time it takes to heal the wound increases, the wound may get worse or the wound may not heal at all. Patient verbalized understanding of all discharge instructions and plan of care and ambulated independently out to [facility] in stable condition with no sign or symptom of distress at time of discharge. Addendum: 04/04/19 at 1300 by Phyllis Estevez RN Amended: Links added.
== END 2019-04-04 11:40 | disposition home or self-care (01) ==
LOC: WOUND CARE 10:37
PROVIDERS: ATTEND Surgery
DX: E11.622 Type 2 diabetes mellitus with other skin ulcer (principal); I70.248 Atherosclerosis of native arteries of left leg with ulceration of other part of lower leg; L97.822 Non-pressure chronic ulcer of other part of left lower leg with fat layer exposed; I70.242 Atherosclerosis of native arteries of left leg with ulceration of calf; I83.022 Varicose veins of left lower extremity with ulcer of calf; L97.221 Non-pressure chronic ulcer of left calf limited to breakdown of skin; L98.492 Non-pressure chronic ulcer of skin of other sites with fat layer exposed; I83.023 Varicose veins of left lower extremity with ulcer of ankle; L97.322 Non-pressure chronic ulcer of left ankle with fat layer exposed; I83.025 Varicose veins of left lower extremity with ulcer other part of foot; E11.621 Type 2 diabetes mellitus with foot ulcer; L97.522 Non-pressure chronic ulcer of other part of left foot with fat layer exposed; I25.10 Atherosclerotic heart disease of native coronary artery without angina pectoris; J44.9 Chronic obstructive pulmonary disease, unspecified; I10 Essential (primary) hypertension; E11.69 Type 2 diabetes mellitus with other specified complication; M86.672 Other chronic osteomyelitis, left ankle and foot; E78.00 Pure hypercholesterolemia, unspecified; I77.1 Stricture of artery; F32.9 Major depressive disorder, single episode, unspecified; F17.210 Nicotine dependence, cigarettes, uncomplicated; F11.90 Opioid use, unspecified, uncomplicated; F10.10 Alcohol abuse, uncomplicated; F41.9 Anxiety disorder, unspecified; F03.90 Unspecified dementia, unspecified severity, without behavioral disturbance, psychotic disturbance, mood disturbance, and anxiety; Z79.2 Long term (current) use of antibiotics; Z79.899 Other long term (current) drug therapy; Z87.442 Personal history of urinary calculi; Z79.84 Long term (current) use of oral hypoglycemic drugs; Z79.4 Long term (current) use of insulin; Z95.1 Presence of aortocoronary bypass graft; Z86.73 Personal history of transient ischemic attack (TIA), and cerebral infarction without residual deficits
CPT/HCPCS: A4663; A6446

== ENCOUNTER 2019-04-14 10:40 | Day surgery (SDC) | payer MEDICARE, MEDICAID ==
[2019-04-14] MEDS ORDERED: LIDOcaine 2% 5ml jelly ONE (11:12)
== END 2019-04-14 12:15 | disposition home or self-care (01) ==
LOC: WOUND CARE 10:40
PROVIDERS: ATTEND Surgery
DX: E11.622 Type 2 diabetes mellitus with other skin ulcer (principal); I70.248 Atherosclerosis of native arteries of left leg with ulceration of other part of lower leg; I83.228 Varicose veins of left lower extremity with both ulcer of other part of lower extremity and inflammation; L97.822 Non-pressure chronic ulcer of other part of left lower leg with fat layer exposed; I70.242 Atherosclerosis of native arteries of left leg with ulceration of calf; I83.022 Varicose veins of left lower extremity with ulcer of calf; L97.221 Non-pressure chronic ulcer of left calf limited to breakdown of skin; L98.492 Non-pressure chronic ulcer of skin of other sites with fat layer exposed; I83.023 Varicose veins of left lower extremity with ulcer of ankle; L97.322 Non-pressure chronic ulcer of left ankle with fat layer exposed; I83.025 Varicose veins of left lower extremity with ulcer other part of foot; E11.621 Type 2 diabetes mellitus with foot ulcer; L97.522 Non-pressure chronic ulcer of other part of left foot with fat layer exposed; I25.10 Atherosclerotic heart disease of native coronary artery without angina pectoris; J44.9 Chronic obstructive pulmonary disease, unspecified; I10 Essential (primary) hypertension; E11.69 Type 2 diabetes mellitus with other specified complication; M86.672 Other chronic osteomyelitis, left ankle and foot; E78.00 Pure hypercholesterolemia, unspecified; I77.1 Stricture of artery; F32.9 Major depressive disorder, single episode, unspecified; F17.210 Nicotine dependence, cigarettes, uncomplicated; F11.90 Opioid use, unspecified, uncomplicated; F10.10 Alcohol abuse, uncomplicated; F41.9 Anxiety disorder, unspecified; F03.90 Unspecified dementia, unspecified severity, without behavioral disturbance, psychotic disturbance, mood disturbance, and anxiety; Z79.2 Long term (current) use of antibiotics; Z79.899 Other long term (current) drug therapy; Z87.442 Personal history of urinary calculi; Z79.84 Long term (current) use of oral hypoglycemic drugs; Z79.4 Long term (current) use of insulin; Z95.1 Presence of aortocoronary bypass graft; Z86.73 Personal history of transient ischemic attack (TIA), and cerebral infarction without residual deficits
CPT/HCPCS: 97607; A4663

== ENCOUNTER 2019-04-18 10:35 | Outpatient (CLI) | payer MEDICARE, MEDICAID | END 2019-04-18 12:26 | disposition home or self-care (01) | LOC: WOUND CARE 10:35 | PROVIDERS: ATTEND Surgery | DX: E11.622 Type 2 diabetes mellitus with other skin ulcer (principal); I70.248 Atherosclerosis of native arteries of left leg with ulceration of other part of lower leg; I83.228 Varicose veins of left lower extremity with both ulcer of other part of lower extremity and inflammation; L97.822 Non-pressure chronic ulcer of other part of left lower leg with fat layer exposed; I70.242 Atherosclerosis of native arteries of left leg with ulceration of calf; I83.022 Varicose veins of left lower extremity with ulcer of calf; L97.221 Non-pressure chronic ulcer of left calf limited to breakdown of skin; L98.492 Non-pressure chronic ulcer of skin of other sites with fat layer exposed; I83.023 Varicose veins of left lower extremity with ulcer of ankle; L97.322 Non-pressure chronic ulcer of left ankle with fat layer exposed; I83.025 Varicose veins of left lower extremity with ulcer other part of foot; E11.621 Type 2 diabetes mellitus with foot ulcer; L97.522 Non-pressure chronic ulcer of other part of left foot with fat layer exposed; I25.10 Atherosclerotic heart disease of native coronary artery without angina pectoris; J44.9 Chronic obstructive pulmonary disease, unspecified; I10 Essential (primary) hypertension; E11.69 Type 2 diabetes mellitus with other specified complication; M86.672 Other chronic osteomyelitis, left ankle and foot; E78.00 Pure hypercholesterolemia, unspecified; I77.1 Stricture of artery; F32.9 Major depressive disorder, single episode, unspecified; F17.210 Nicotine dependence, cigarettes, uncomplicated; F11.90 Opioid use, unspecified, uncomplicated; F10.10 Alcohol abuse, uncomplicated; F41.9 Anxiety disorder, unspecified; F03.90 Unspecified dementia, unspecified severity, without behavioral disturbance, psychotic disturbance, mood disturbance, and anxiety; Z79.2 Long term (current) use of antibiotics; Z79.899 Other long term (current) drug therapy; Z87.442 Personal history of urinary calculi; Z79.84 Long term (current) use of oral hypoglycemic drugs; Z79.4 Long term (current) use of insulin; Z95.1 Presence of aortocoronary bypass graft; Z86.73 Personal history of transient ischemic attack (TIA), and cerebral infarction without residual deficits | CPT/HCPCS: 73721; 97607; A4663; A6250 ==

== ENCOUNTER 2019-04-22 10:30 | Day surgery (SDC) | payer MEDICARE, MEDICAID ==
[2019-04-22] MEDS ORDERED: LIDOcaine 2% 5ml jelly ONE (12:07)
== END 2019-04-22 13:15 | disposition home or self-care (01) ==
LOC: WOUND CARE 10:30
PROVIDERS: ATTEND Surgery
DX: E11.622 Type 2 diabetes mellitus with other skin ulcer (principal); I70.248 Atherosclerosis of native arteries of left leg with ulceration of other part of lower leg; I83.228 Varicose veins of left lower extremity with both ulcer of other part of lower extremity and inflammation; L97.822 Non-pressure chronic ulcer of other part of left lower leg with fat layer exposed; I70.242 Atherosclerosis of native arteries of left leg with ulceration of calf; I83.022 Varicose veins of left lower extremity with ulcer of calf; L97.221 Non-pressure chronic ulcer of left calf limited to breakdown of skin; L98.492 Non-pressure chronic ulcer of skin of other sites with fat layer exposed; I83.023 Varicose veins of left lower extremity with ulcer of ankle; L97.322 Non-pressure chronic ulcer of left ankle with fat layer exposed; I83.025 Varicose veins of left lower extremity with ulcer other part of foot; E11.621 Type 2 diabetes mellitus with foot ulcer; L97.522 Non-pressure chronic ulcer of other part of left foot with fat layer exposed; I25.10 Atherosclerotic heart disease of native coronary artery without angina pectoris; J44.9 Chronic obstructive pulmonary disease, unspecified; I10 Essential (primary) hypertension; E11.69 Type 2 diabetes mellitus with other specified complication; M86.672 Other chronic osteomyelitis, left ankle and foot; E78.00 Pure hypercholesterolemia, unspecified; I77.1 Stricture of artery; F32.9 Major depressive disorder, single episode, unspecified; F17.210 Nicotine dependence, cigarettes, uncomplicated; F11.90 Opioid use, unspecified, uncomplicated; F10.10 Alcohol abuse, uncomplicated; F41.9 Anxiety disorder, unspecified; F03.90 Unspecified dementia, unspecified severity, without behavioral disturbance, psychotic disturbance, mood disturbance, and anxiety; Z79.2 Long term (current) use of antibiotics; Z79.899 Other long term (current) drug therapy; Z87.442 Personal history of urinary calculi; Z79.84 Long term (current) use of oral hypoglycemic drugs; Z79.4 Long term (current) use of insulin; Z95.1 Presence of aortocoronary bypass graft; Z86.73 Personal history of transient ischemic attack (TIA), and cerebral infarction without residual deficits
CPT/HCPCS: 73590; 97607; A4663; A6021; A6446

== ENCOUNTER 2019-04-25 10:35 | Outpatient (CLI) | payer MEDICARE, MEDICAID ==
[2019-04-25] MEDS ORDERED: LIDOcaine 2% 5ml jelly ONE (11:35)
== END 2019-04-25 12:20 | disposition home or self-care (01) ==
LOC: WOUND CARE 10:35
PROVIDERS: ATTEND Surgery
DX: E11.622 Type 2 diabetes mellitus with other skin ulcer (principal); I70.248 Atherosclerosis of native arteries of left leg with ulceration of other part of lower leg; I83.228 Varicose veins of left lower extremity with both ulcer of other part of lower extremity and inflammation; L97.822 Non-pressure chronic ulcer of other part of left lower leg with fat layer exposed; I70.242 Atherosclerosis of native arteries of left leg with ulceration of calf; I83.022 Varicose veins of left lower extremity with ulcer of calf; L97.221 Non-pressure chronic ulcer of left calf limited to breakdown of skin; L98.492 Non-pressure chronic ulcer of skin of other sites with fat layer exposed; I83.023 Varicose veins of left lower extremity with ulcer of ankle; L97.322 Non-pressure chronic ulcer of left ankle with fat layer exposed; I83.025 Varicose veins of left lower extremity with ulcer other part of foot; E11.621 Type 2 diabetes mellitus with foot ulcer; L97.522 Non-pressure chronic ulcer of other part of left foot with fat layer exposed; I25.10 Atherosclerotic heart disease of native coronary artery without angina pectoris; J44.9 Chronic obstructive pulmonary disease, unspecified; I10 Essential (primary) hypertension; E11.69 Type 2 diabetes mellitus with other specified complication; M86.672 Other chronic osteomyelitis, left ankle and foot; E78.00 Pure hypercholesterolemia, unspecified; I77.1 Stricture of artery; F32.9 Major depressive disorder, single episode, unspecified; F17.210 Nicotine dependence, cigarettes, uncomplicated; F11.90 Opioid use, unspecified, uncomplicated; F10.10 Alcohol abuse, uncomplicated; F41.9 Anxiety disorder, unspecified; F03.90 Unspecified dementia, unspecified severity, without behavioral disturbance, psychotic disturbance, mood disturbance, and anxiety; Z79.2 Long term (current) use of antibiotics; Z79.899 Other long term (current) drug therapy; Z87.442 Personal history of urinary calculi; Z79.84 Long term (current) use of oral hypoglycemic drugs; Z79.4 Long term (current) use of insulin; Z95.1 Presence of aortocoronary bypass graft; Z86.73 Personal history of transient ischemic attack (TIA), and cerebral infarction without residual deficits
CPT/HCPCS: 97607; A4663

== ENCOUNTER 2019-04-29 10:40 | Day surgery (SDC) | payer MEDICARE, MEDICAID ==
[2019-04-29] MEDS ORDERED: LIDOcaine 2% 5ml jelly ONE (11:01)
== END 2019-04-29 13:00 | disposition home or self-care (01) ==
LOC: WOUND CARE 10:40
PROVIDERS: ATTEND Surgery
DX: E11.622 Type 2 diabetes mellitus with other skin ulcer (principal); I70.248 Atherosclerosis of native arteries of left leg with ulceration of other part of lower leg; I83.228 Varicose veins of left lower extremity with both ulcer of other part of lower extremity and inflammation; L97.822 Non-pressure chronic ulcer of other part of left lower leg with fat layer exposed; I70.242 Atherosclerosis of native arteries of left leg with ulceration of calf; I83.022 Varicose veins of left lower extremity with ulcer of calf; L97.221 Non-pressure chronic ulcer of left calf limited to breakdown of skin; L98.492 Non-pressure chronic ulcer of skin of other sites with fat layer exposed; I83.023 Varicose veins of left lower extremity with ulcer of ankle; L97.322 Non-pressure chronic ulcer of left ankle with fat layer exposed; I83.025 Varicose veins of left lower extremity with ulcer other part of foot; E11.621 Type 2 diabetes mellitus with foot ulcer; L97.522 Non-pressure chronic ulcer of other part of left foot with fat layer exposed; I25.10 Atherosclerotic heart disease of native coronary artery without angina pectoris; J44.9 Chronic obstructive pulmonary disease, unspecified; I10 Essential (primary) hypertension; E11.69 Type 2 diabetes mellitus with other specified complication; M86.672 Other chronic osteomyelitis, left ankle and foot; E78.00 Pure hypercholesterolemia, unspecified; I77.1 Stricture of artery; F32.9 Major depressive disorder, single episode, unspecified; F17.210 Nicotine dependence, cigarettes, uncomplicated; F11.90 Opioid use, unspecified, uncomplicated; F10.10 Alcohol abuse, uncomplicated; F41.9 Anxiety disorder, unspecified; F03.90 Unspecified dementia, unspecified severity, without behavioral disturbance, psychotic disturbance, mood disturbance, and anxiety; Z79.2 Long term (current) use of antibiotics; Z79.899 Other long term (current) drug therapy; Z87.442 Personal history of urinary calculi; Z79.84 Long term (current) use of oral hypoglycemic drugs; Z79.4 Long term (current) use of insulin; Z95.1 Presence of aortocoronary bypass graft; Z86.73 Personal history of transient ischemic attack (TIA), and cerebral infarction without residual deficits
CPT/HCPCS: 97597; A4663; A6250

== ENCOUNTER 2019-05-02 10:37 | Outpatient (CLI) | payer MEDICARE, MEDICAID | END 2019-05-02 12:10 | disposition home or self-care (01) | LOC: WOUND CARE 10:37 | PROVIDERS: ATTEND Surgery | DX: E11.622 Type 2 diabetes mellitus with other skin ulcer (principal); I70.248 Atherosclerosis of native arteries of left leg with ulceration of other part of lower leg; I83.228 Varicose veins of left lower extremity with both ulcer of other part of lower extremity and inflammation; L97.822 Non-pressure chronic ulcer of other part of left lower leg with fat layer exposed; I70.242 Atherosclerosis of native arteries of left leg with ulceration of calf; L97.221 Non-pressure chronic ulcer of left calf limited to breakdown of skin; L98.492 Non-pressure chronic ulcer of skin of other sites with fat layer exposed; I83.023 Varicose veins of left lower extremity with ulcer of ankle; L97.322 Non-pressure chronic ulcer of left ankle with fat layer exposed; I83.025 Varicose veins of left lower extremity with ulcer other part of foot; E11.621 Type 2 diabetes mellitus with foot ulcer; L97.522 Non-pressure chronic ulcer of other part of left foot with fat layer exposed; I83.022 Varicose veins of left lower extremity with ulcer of calf; I25.10 Atherosclerotic heart disease of native coronary artery without angina pectoris; J44.9 Chronic obstructive pulmonary disease, unspecified; I10 Essential (primary) hypertension; E11.69 Type 2 diabetes mellitus with other specified complication; M86.672 Other chronic osteomyelitis, left ankle and foot; E78.00 Pure hypercholesterolemia, unspecified; I77.1 Stricture of artery; F32.9 Major depressive disorder, single episode, unspecified; F17.210 Nicotine dependence, cigarettes, uncomplicated; F11.90 Opioid use, unspecified, uncomplicated; F10.10 Alcohol abuse, uncomplicated; F03.90 Unspecified dementia, unspecified severity, without behavioral disturbance, psychotic disturbance, mood disturbance, and anxiety; F41.9 Anxiety disorder, unspecified; Z79.2 Long term (current) use of antibiotics; Z79.899 Other long term (current) drug therapy; Z87.442 Personal history of urinary calculi; Z79.84 Long term (current) use of oral hypoglycemic drugs; Z79.4 Long term (current) use of insulin; Z95.1 Presence of aortocoronary bypass graft; Z86.73 Personal history of transient ischemic attack (TIA), and cerebral infarction without residual deficits | CPT/HCPCS: 97607; A4663; A6446 ==

== ENCOUNTER 2019-05-06 11:40 | Day surgery (SDC) | payer MEDICARE, MEDICAID | END 2019-05-06 13:05 | disposition home or self-care (01) | LOC: WOUND CARE 11:40 | PROVIDERS: ATTEND Surgery | DX: E11.622 Type 2 diabetes mellitus with other skin ulcer (principal); I70.248 Atherosclerosis of native arteries of left leg with ulceration of other part of lower leg; I83.228 Varicose veins of left lower extremity with both ulcer of other part of lower extremity and inflammation; L97.822 Non-pressure chronic ulcer of other part of left lower leg with fat layer exposed; I70.242 Atherosclerosis of native arteries of left leg with ulceration of calf; L97.221 Non-pressure chronic ulcer of left calf limited to breakdown of skin; L98.492 Non-pressure chronic ulcer of skin of other sites with fat layer exposed; I83.023 Varicose veins of left lower extremity with ulcer of ankle; L97.322 Non-pressure chronic ulcer of left ankle with fat layer exposed; I83.025 Varicose veins of left lower extremity with ulcer other part of foot; E11.621 Type 2 diabetes mellitus with foot ulcer; L97.522 Non-pressure chronic ulcer of other part of left foot with fat layer exposed; I83.022 Varicose veins of left lower extremity with ulcer of calf; I25.10 Atherosclerotic heart disease of native coronary artery without angina pectoris; J44.9 Chronic obstructive pulmonary disease, unspecified; I10 Essential (primary) hypertension; E11.69 Type 2 diabetes mellitus with other specified complication; M86.672 Other chronic osteomyelitis, left ankle and foot; E78.00 Pure hypercholesterolemia, unspecified; I77.1 Stricture of artery; F32.9 Major depressive disorder, single episode, unspecified; F17.210 Nicotine dependence, cigarettes, uncomplicated; F11.90 Opioid use, unspecified, uncomplicated; F10.10 Alcohol abuse, uncomplicated; F03.90 Unspecified dementia, unspecified severity, without behavioral disturbance, psychotic disturbance, mood disturbance, and anxiety; F41.9 Anxiety disorder, unspecified; Z79.2 Long term (current) use of antibiotics; Z79.899 Other long term (current) drug therapy; Z87.442 Personal history of urinary calculi; Z79.84 Long term (current) use of oral hypoglycemic drugs; Z79.4 Long term (current) use of insulin; Z95.1 Presence of aortocoronary bypass graft; Z86.73 Personal history of transient ischemic attack (TIA), and cerebral infarction without residual deficits | CPT/HCPCS: 97597; A4663; A6250; A6446 ==

== ENCOUNTER 2019-05-09 10:34 | Outpatient (CLI) | payer MEDICARE, MEDICAID ==
[2019-05-09] MEDS ORDERED: LIDOcaine 2% 5ml jelly ONE (11:21)
== END 2019-05-09 12:48 | disposition home or self-care (01) ==
LOC: WOUND CARE 10:34
PROVIDERS: ATTEND Surgery
DX: E11.622 Type 2 diabetes mellitus with other skin ulcer (principal); I70.248 Atherosclerosis of native arteries of left leg with ulceration of other part of lower leg; I83.228 Varicose veins of left lower extremity with both ulcer of other part of lower extremity and inflammation; L97.822 Non-pressure chronic ulcer of other part of left lower leg with fat layer exposed; I70.242 Atherosclerosis of native arteries of left leg with ulceration of calf; I83.022 Varicose veins of left lower extremity with ulcer of calf; L97.221 Non-pressure chronic ulcer of left calf limited to breakdown of skin; L98.492 Non-pressure chronic ulcer of skin of other sites with fat layer exposed; I83.023 Varicose veins of left lower extremity with ulcer of ankle; L97.322 Non-pressure chronic ulcer of left ankle with fat layer exposed; E11.621 Type 2 diabetes mellitus with foot ulcer; I83.025 Varicose veins of left lower extremity with ulcer other part of foot; L97.522 Non-pressure chronic ulcer of other part of left foot with fat layer exposed; I25.10 Atherosclerotic heart disease of native coronary artery without angina pectoris; J44.9 Chronic obstructive pulmonary disease, unspecified; I10 Essential (primary) hypertension; E11.69 Type 2 diabetes mellitus with other specified complication; M86.672 Other chronic osteomyelitis, left ankle and foot; E78.00 Pure hypercholesterolemia, unspecified; I77.1 Stricture of artery; F32.9 Major depressive disorder, single episode, unspecified; F17.210 Nicotine dependence, cigarettes, uncomplicated; F11.90 Opioid use, unspecified, uncomplicated; F10.10 Alcohol abuse, uncomplicated; F03.90 Unspecified dementia, unspecified severity, without behavioral disturbance, psychotic disturbance, mood disturbance, and anxiety; F41.9 Anxiety disorder, unspecified; Z79.2 Long term (current) use of antibiotics; Z79.899 Other long term (current) drug therapy; Z87.442 Personal history of urinary calculi; Z79.84 Long term (current) use of oral hypoglycemic drugs; Z79.4 Long term (current) use of insulin; Z95.1 Presence of aortocoronary bypass graft; Z86.73 Personal history of transient ischemic attack (TIA), and cerebral infarction without residual deficits
CPT/HCPCS: 97607; A4663; A6446

== ENCOUNTER 2019-05-13 10:45 | Day surgery (SDC) | payer MEDICARE, MEDICAID ==
[2019-05-13] MEDS ORDERED: LIDOcaine 2% 5ml jelly ONE (10:56)
== END 2019-05-13 12:05 | disposition home or self-care (01) ==
LOC: WOUND CARE 10:45
PROVIDERS: ATTEND Surgery
DX: E11.622 Type 2 diabetes mellitus with other skin ulcer (principal); I70.248 Atherosclerosis of native arteries of left leg with ulceration of other part of lower leg; I83.228 Varicose veins of left lower extremity with both ulcer of other part of lower extremity and inflammation; L97.822 Non-pressure chronic ulcer of other part of left lower leg with fat layer exposed; I70.242 Atherosclerosis of native arteries of left leg with ulceration of calf; I83.022 Varicose veins of left lower extremity with ulcer of calf; L97.221 Non-pressure chronic ulcer of left calf limited to breakdown of skin; I83.023 Varicose veins of left lower extremity with ulcer of ankle; L97.322 Non-pressure chronic ulcer of left ankle with fat layer exposed; E11.621 Type 2 diabetes mellitus with foot ulcer; I83.025 Varicose veins of left lower extremity with ulcer other part of foot; L97.522 Non-pressure chronic ulcer of other part of left foot with fat layer exposed; I25.10 Atherosclerotic heart disease of native coronary artery without angina pectoris; J44.9 Chronic obstructive pulmonary disease, unspecified; I10 Essential (primary) hypertension; E11.69 Type 2 diabetes mellitus with other specified complication; M86.672 Other chronic osteomyelitis, left ankle and foot; E78.00 Pure hypercholesterolemia, unspecified; I77.1 Stricture of artery; F32.9 Major depressive disorder, single episode, unspecified; F17.210 Nicotine dependence, cigarettes, uncomplicated; F11.90 Opioid use, unspecified, uncomplicated; F10.10 Alcohol abuse, uncomplicated; F03.90 Unspecified dementia, unspecified severity, without behavioral disturbance, psychotic disturbance, mood disturbance, and anxiety; F41.9 Anxiety disorder, unspecified; Z79.2 Long term (current) use of antibiotics; Z79.899 Other long term (current) drug therapy; Z87.442 Personal history of urinary calculi; Z79.84 Long term (current) use of oral hypoglycemic drugs; Z79.4 Long term (current) use of insulin; Z95.1 Presence of aortocoronary bypass graft; Z86.73 Personal history of transient ischemic attack (TIA), and cerebral infarction without residual deficits
CPT/HCPCS: 97607; A4663; A6250; A6446

== ENCOUNTER 2019-05-16 10:25 | Outpatient (CLI) | payer MEDICARE, MEDICAID | END 2019-05-16 12:25 | disposition home or self-care (01) | LOC: WOUND CARE 10:25 → EDSTATUS 10:30 → WOUND CARE 12:25 | PROVIDERS: ATTEND Surgery | DX: E11.622 Type 2 diabetes mellitus with other skin ulcer (principal); I70.248 Atherosclerosis of native arteries of left leg with ulceration of other part of lower leg; I83.228 Varicose veins of left lower extremity with both ulcer of other part of lower extremity and inflammation; L97.822 Non-pressure chronic ulcer of other part of left lower leg with fat layer exposed; I70.242 Atherosclerosis of native arteries of left leg with ulceration of calf; I83.022 Varicose veins of left lower extremity with ulcer of calf; L97.221 Non-pressure chronic ulcer of left calf limited to breakdown of skin; I83.023 Varicose veins of left lower extremity with ulcer of ankle; L97.322 Non-pressure chronic ulcer of left ankle with fat layer exposed; E11.621 Type 2 diabetes mellitus with foot ulcer; I83.025 Varicose veins of left lower extremity with ulcer other part of foot; L97.522 Non-pressure chronic ulcer of other part of left foot with fat layer exposed; I25.10 Atherosclerotic heart disease of native coronary artery without angina pectoris; J44.9 Chronic obstructive pulmonary disease, unspecified; I10 Essential (primary) hypertension; E11.69 Type 2 diabetes mellitus with other specified complication; M86.672 Other chronic osteomyelitis, left ankle and foot; E78.00 Pure hypercholesterolemia, unspecified; I77.1 Stricture of artery; F32.9 Major depressive disorder, single episode, unspecified; F17.210 Nicotine dependence, cigarettes, uncomplicated; F11.90 Opioid use, unspecified, uncomplicated; F10.10 Alcohol abuse, uncomplicated; F03.90 Unspecified dementia, unspecified severity, without behavioral disturbance, psychotic disturbance, mood disturbance, and anxiety; F41.9 Anxiety disorder, unspecified; Z79.2 Long term (current) use of antibiotics; Z79.899 Other long term (current) drug therapy; Z87.442 Personal history of urinary calculi; Z79.84 Long term (current) use of oral hypoglycemic drugs; Z79.4 Long term (current) use of insulin; Z95.1 Presence of aortocoronary bypass graft; Z86.73 Personal history of transient ischemic attack (TIA), and cerebral infarction without residual deficits | CPT/HCPCS: 97607; A4663; A6446 ==

== ENCOUNTER 2019-05-20 10:37 | Day surgery (SDC) | payer MEDICARE, MEDICAID ==
[2019-05-20] MEDS ORDERED: LIDOcaine 2% 5ml jelly ONE (11:31)
== END 2019-05-20 12:36 | disposition home or self-care (01) ==
LOC: WOUND CARE 10:37
PROVIDERS: ATTEND Surgery
DX: E11.622 Type 2 diabetes mellitus with other skin ulcer (principal); I70.248 Atherosclerosis of native arteries of left leg with ulceration of other part of lower leg; I83.228 Varicose veins of left lower extremity with both ulcer of other part of lower extremity and inflammation; L97.822 Non-pressure chronic ulcer of other part of left lower leg with fat layer exposed; I70.242 Atherosclerosis of native arteries of left leg with ulceration of calf; I83.022 Varicose veins of left lower extremity with ulcer of calf; L97.221 Non-pressure chronic ulcer of left calf limited to breakdown of skin; I83.023 Varicose veins of left lower extremity with ulcer of ankle; L97.322 Non-pressure chronic ulcer of left ankle with fat layer exposed; E11.621 Type 2 diabetes mellitus with foot ulcer; I83.025 Varicose veins of left lower extremity with ulcer other part of foot; L97.522 Non-pressure chronic ulcer of other part of left foot with fat layer exposed; I25.10 Atherosclerotic heart disease of native coronary artery without angina pectoris; J44.9 Chronic obstructive pulmonary disease, unspecified; I10 Essential (primary) hypertension; E11.69 Type 2 diabetes mellitus with other specified complication; M86.672 Other chronic osteomyelitis, left ankle and foot; E78.00 Pure hypercholesterolemia, unspecified; I77.1 Stricture of artery; F32.9 Major depressive disorder, single episode, unspecified; F17.210 Nicotine dependence, cigarettes, uncomplicated; F11.90 Opioid use, unspecified, uncomplicated; F10.10 Alcohol abuse, uncomplicated; F03.90 Unspecified dementia, unspecified severity, without behavioral disturbance, psychotic disturbance, mood disturbance, and anxiety; F41.9 Anxiety disorder, unspecified; Z79.2 Long term (current) use of antibiotics; Z79.899 Other long term (current) drug therapy; Z87.442 Personal history of urinary calculi; Z79.84 Long term (current) use of oral hypoglycemic drugs; Z79.4 Long term (current) use of insulin; Z95.1 Presence of aortocoronary bypass graft; Z86.73 Personal history of transient ischemic attack (TIA), and cerebral infarction without residual deficits
CPT/HCPCS: 15271; A6209; A6222; Q4187; A4663; A6250; A6446

== ENCOUNTER 2019-05-26 10:25 | Outpatient (CLI) | payer MEDICARE, MEDICAID ==
[2019-05-26] MEDS ORDERED: LIDOcaine 2% 5ml jelly ONE (11:19)
== END 2019-05-26 12:30 | disposition home or self-care (01) ==
LOC: WOUND CARE 10:25 → EDSTATUS 10:30 → WOUND CARE 12:30
PROVIDERS: ATTEND Surgery
DX: E11.622 Type 2 diabetes mellitus with other skin ulcer (principal); I70.248 Atherosclerosis of native arteries of left leg with ulceration of other part of lower leg; I83.228 Varicose veins of left lower extremity with both ulcer of other part of lower extremity and inflammation; L97.822 Non-pressure chronic ulcer of other part of left lower leg with fat layer exposed; I70.242 Atherosclerosis of native arteries of left leg with ulceration of calf; I83.022 Varicose veins of left lower extremity with ulcer of calf; L97.221 Non-pressure chronic ulcer of left calf limited to breakdown of skin; I83.023 Varicose veins of left lower extremity with ulcer of ankle; L97.322 Non-pressure chronic ulcer of left ankle with fat layer exposed; E11.621 Type 2 diabetes mellitus with foot ulcer; I83.025 Varicose veins of left lower extremity with ulcer other part of foot; L97.522 Non-pressure chronic ulcer of other part of left foot with fat layer exposed; I25.10 Atherosclerotic heart disease of native coronary artery without angina pectoris; J44.9 Chronic obstructive pulmonary disease, unspecified; I10 Essential (primary) hypertension; E11.69 Type 2 diabetes mellitus with other specified complication; M86.672 Other chronic osteomyelitis, left ankle and foot; E78.00 Pure hypercholesterolemia, unspecified; I77.1 Stricture of artery; F32.9 Major depressive disorder, single episode, unspecified; F17.210 Nicotine dependence, cigarettes, uncomplicated; F11.90 Opioid use, unspecified, uncomplicated; F10.10 Alcohol abuse, uncomplicated; F03.90 Unspecified dementia, unspecified severity, without behavioral disturbance, psychotic disturbance, mood disturbance, and anxiety; F41.9 Anxiety disorder, unspecified; Z79.2 Long term (current) use of antibiotics; Z79.899 Other long term (current) drug therapy; Z87.442 Personal history of urinary calculi; Z79.84 Long term (current) use of oral hypoglycemic drugs; Z79.4 Long term (current) use of insulin; Z95.1 Presence of aortocoronary bypass graft; Z86.73 Personal history of transient ischemic attack (TIA), and cerebral infarction without residual deficits
CPT/HCPCS: A6222; G0463; A4663; A6021; A6446

== ENCOUNTER 2019-06-03 10:40 | Outpatient (CLI) | payer MEDICARE, MEDICAID | END 2019-06-03 12:30 | disposition home or self-care (01) | LOC: WOUND CARE 10:40 | PROVIDERS: ATTEND Surgery | DX: E11.622 Type 2 diabetes mellitus with other skin ulcer (principal); I70.248 Atherosclerosis of native arteries of left leg with ulceration of other part of lower leg; I83.228 Varicose veins of left lower extremity with both ulcer of other part of lower extremity and inflammation; L97.822 Non-pressure chronic ulcer of other part of left lower leg with fat layer exposed; I70.242 Atherosclerosis of native arteries of left leg with ulceration of calf; I83.022 Varicose veins of left lower extremity with ulcer of calf; L97.221 Non-pressure chronic ulcer of left calf limited to breakdown of skin; I83.023 Varicose veins of left lower extremity with ulcer of ankle; L97.322 Non-pressure chronic ulcer of left ankle with fat layer exposed; E11.621 Type 2 diabetes mellitus with foot ulcer; I83.025 Varicose veins of left lower extremity with ulcer other part of foot; L97.522 Non-pressure chronic ulcer of other part of left foot with fat layer exposed; I25.10 Atherosclerotic heart disease of native coronary artery without angina pectoris; J44.9 Chronic obstructive pulmonary disease, unspecified; I10 Essential (primary) hypertension; E11.69 Type 2 diabetes mellitus with other specified complication; M86.672 Other chronic osteomyelitis, left ankle and foot; E78.00 Pure hypercholesterolemia, unspecified; I77.1 Stricture of artery; F32.9 Major depressive disorder, single episode, unspecified; F17.210 Nicotine dependence, cigarettes, uncomplicated; F11.90 Opioid use, unspecified, uncomplicated; F10.10 Alcohol abuse, uncomplicated; F03.90 Unspecified dementia, unspecified severity, without behavioral disturbance, psychotic disturbance, mood disturbance, and anxiety; F41.9 Anxiety disorder, unspecified; Z79.2 Long term (current) use of antibiotics; Z79.899 Other long term (current) drug therapy; Z87.442 Personal history of urinary calculi; Z79.84 Long term (current) use of oral hypoglycemic drugs; Z79.4 Long term (current) use of insulin; Z95.1 Presence of aortocoronary bypass graft; Z86.73 Personal history of transient ischemic attack (TIA), and cerebral infarction without residual deficits | CPT/HCPCS: A6222; G0463; A4663; A6021; A6446 ==

== ENCOUNTER 2019-06-10 10:30 | Day surgery (SDC) | payer MEDICARE, MEDICAID ==
[2019-06-10] MEDS ORDERED: LIDOcaine 2% 5ml jelly ONE (10:50)
== END 2019-06-10 13:00 | disposition home or self-care (01) ==
LOC: WOUND CARE 10:30
PROVIDERS: ATTEND Surgery
DX: E11.622 Type 2 diabetes mellitus with other skin ulcer (principal); I70.248 Atherosclerosis of native arteries of left leg with ulceration of other part of lower leg; I83.228 Varicose veins of left lower extremity with both ulcer of other part of lower extremity and inflammation; L97.822 Non-pressure chronic ulcer of other part of left lower leg with fat layer exposed; I70.242 Atherosclerosis of native arteries of left leg with ulceration of calf; I83.022 Varicose veins of left lower extremity with ulcer of calf; L97.221 Non-pressure chronic ulcer of left calf limited to breakdown of skin; I83.023 Varicose veins of left lower extremity with ulcer of ankle; L97.322 Non-pressure chronic ulcer of left ankle with fat layer exposed; E11.621 Type 2 diabetes mellitus with foot ulcer; I83.025 Varicose veins of left lower extremity with ulcer other part of foot; L97.522 Non-pressure chronic ulcer of other part of left foot with fat layer exposed; I25.10 Atherosclerotic heart disease of native coronary artery without angina pectoris; J44.9 Chronic obstructive pulmonary disease, unspecified; I10 Essential (primary) hypertension; E11.69 Type 2 diabetes mellitus with other specified complication; M86.672 Other chronic osteomyelitis, left ankle and foot; E78.00 Pure hypercholesterolemia, unspecified; I77.1 Stricture of artery; F32.9 Major depressive disorder, single episode, unspecified; F17.210 Nicotine dependence, cigarettes, uncomplicated; F11.90 Opioid use, unspecified, uncomplicated; F10.10 Alcohol abuse, uncomplicated; F03.90 Unspecified dementia, unspecified severity, without behavioral disturbance, psychotic disturbance, mood disturbance, and anxiety; F41.9 Anxiety disorder, unspecified; Z79.2 Long term (current) use of antibiotics; Z79.899 Other long term (current) drug therapy; Z87.442 Personal history of urinary calculi; Z79.84 Long term (current) use of oral hypoglycemic drugs; Z79.4 Long term (current) use of insulin; Z95.1 Presence of aortocoronary bypass graft; Z86.73 Personal history of transient ischemic attack (TIA), and cerebral infarction without residual deficits
CPT/HCPCS: 97597; A4663; A6446

== ENCOUNTER 2019-06-13 10:45 | Outpatient (CLI) | payer MEDICARE, MEDICAID | END 2019-06-13 11:57 | disposition home or self-care (01) | LOC: WOUND CARE 10:45 | PROVIDERS: ATTEND Surgery | DX: E11.622 Type 2 diabetes mellitus with other skin ulcer (principal); I70.248 Atherosclerosis of native arteries of left leg with ulceration of other part of lower leg; I83.228 Varicose veins of left lower extremity with both ulcer of other part of lower extremity and inflammation; L97.822 Non-pressure chronic ulcer of other part of left lower leg with fat layer exposed; I70.242 Atherosclerosis of native arteries of left leg with ulceration of calf; I83.022 Varicose veins of left lower extremity with ulcer of calf; L97.221 Non-pressure chronic ulcer of left calf limited to breakdown of skin; I83.023 Varicose veins of left lower extremity with ulcer of ankle; L97.322 Non-pressure chronic ulcer of left ankle with fat layer exposed; E11.621 Type 2 diabetes mellitus with foot ulcer; I83.025 Varicose veins of left lower extremity with ulcer other part of foot; L97.522 Non-pressure chronic ulcer of other part of left foot with fat layer exposed; I25.10 Atherosclerotic heart disease of native coronary artery without angina pectoris; J44.9 Chronic obstructive pulmonary disease, unspecified; I10 Essential (primary) hypertension; E11.69 Type 2 diabetes mellitus with other specified complication; M86.672 Other chronic osteomyelitis, left ankle and foot; E78.00 Pure hypercholesterolemia, unspecified; I77.1 Stricture of artery; F32.9 Major depressive disorder, single episode, unspecified; F17.210 Nicotine dependence, cigarettes, uncomplicated; F11.90 Opioid use, unspecified, uncomplicated; F10.10 Alcohol abuse, uncomplicated; F03.90 Unspecified dementia, unspecified severity, without behavioral disturbance, psychotic disturbance, mood disturbance, and anxiety; F41.9 Anxiety disorder, unspecified; Z79.2 Long term (current) use of antibiotics; Z79.899 Other long term (current) drug therapy; Z87.442 Personal history of urinary calculi; Z79.84 Long term (current) use of oral hypoglycemic drugs; Z79.4 Long term (current) use of insulin; Z95.1 Presence of aortocoronary bypass graft; Z86.73 Personal history of transient ischemic attack (TIA), and cerebral infarction without residual deficits | CPT/HCPCS: 97607; A4663; A6446 ==

== ENCOUNTER 2019-06-17 11:45 | Outpatient (CLI) | payer MEDICARE, MEDICAID ==
[2019-06-17] MEDS ORDERED: LIDOcaine 2% 5ml jelly ONE (12:02)
== END 2019-06-17 13:00 | disposition home or self-care (01) ==
LOC: WOUND CARE 11:45
PROVIDERS: ATTEND Surgery
DX: E11.622 Type 2 diabetes mellitus with other skin ulcer (principal); I70.248 Atherosclerosis of native arteries of left leg with ulceration of other part of lower leg; I83.228 Varicose veins of left lower extremity with both ulcer of other part of lower extremity and inflammation; L97.822 Non-pressure chronic ulcer of other part of left lower leg with fat layer exposed; I70.242 Atherosclerosis of native arteries of left leg with ulceration of calf; I83.022 Varicose veins of left lower extremity with ulcer of calf; L97.221 Non-pressure chronic ulcer of left calf limited to breakdown of skin; I83.023 Varicose veins of left lower extremity with ulcer of ankle; L97.322 Non-pressure chronic ulcer of left ankle with fat layer exposed; E11.621 Type 2 diabetes mellitus with foot ulcer; I83.025 Varicose veins of left lower extremity with ulcer other part of foot; L97.522 Non-pressure chronic ulcer of other part of left foot with fat layer exposed; I25.10 Atherosclerotic heart disease of native coronary artery without angina pectoris; J44.9 Chronic obstructive pulmonary disease, unspecified; I10 Essential (primary) hypertension; E11.69 Type 2 diabetes mellitus with other specified complication; M86.672 Other chronic osteomyelitis, left ankle and foot; E78.00 Pure hypercholesterolemia, unspecified; I77.1 Stricture of artery; F32.9 Major depressive disorder, single episode, unspecified; F17.210 Nicotine dependence, cigarettes, uncomplicated; F11.90 Opioid use, unspecified, uncomplicated; F10.10 Alcohol abuse, uncomplicated; F03.90 Unspecified dementia, unspecified severity, without behavioral disturbance, psychotic disturbance, mood disturbance, and anxiety; F41.9 Anxiety disorder, unspecified; Z79.2 Long term (current) use of antibiotics; Z79.899 Other long term (current) drug therapy; Z87.442 Personal history of urinary calculi; Z79.84 Long term (current) use of oral hypoglycemic drugs; Z79.4 Long term (current) use of insulin; Z95.1 Presence of aortocoronary bypass graft; Z86.73 Personal history of transient ischemic attack (TIA), and cerebral infarction without residual deficits
CPT/HCPCS: 97607; A4663; A6446

== ENCOUNTER 2019-06-20 10:31 | Day surgery (SDC) | payer MEDICARE, MEDICAID ==
[2019-06-20] MEDS ORDERED: LIDOcaine 2% 5ml jelly ONE (11:05)
== END 2019-06-20 11:49 | disposition home or self-care (01) ==
LOC: WOUND CARE 10:31
PROVIDERS: ATTEND Surgery
DX: E11.622 Type 2 diabetes mellitus with other skin ulcer (principal); I70.248 Atherosclerosis of native arteries of left leg with ulceration of other part of lower leg; I83.228 Varicose veins of left lower extremity with both ulcer of other part of lower extremity and inflammation; L97.822 Non-pressure chronic ulcer of other part of left lower leg with fat layer exposed; I70.242 Atherosclerosis of native arteries of left leg with ulceration of calf; I83.022 Varicose veins of left lower extremity with ulcer of calf; L97.221 Non-pressure chronic ulcer of left calf limited to breakdown of skin; I83.023 Varicose veins of left lower extremity with ulcer of ankle; L97.322 Non-pressure chronic ulcer of left ankle with fat layer exposed; E11.621 Type 2 diabetes mellitus with foot ulcer; I83.025 Varicose veins of left lower extremity with ulcer other part of foot; L97.522 Non-pressure chronic ulcer of other part of left foot with fat layer exposed; I25.10 Atherosclerotic heart disease of native coronary artery without angina pectoris; J44.9 Chronic obstructive pulmonary disease, unspecified; I10 Essential (primary) hypertension; E11.69 Type 2 diabetes mellitus with other specified complication; M86.672 Other chronic osteomyelitis, left ankle and foot; E78.00 Pure hypercholesterolemia, unspecified; I77.1 Stricture of artery; F32.9 Major depressive disorder, single episode, unspecified; F17.210 Nicotine dependence, cigarettes, uncomplicated; F11.90 Opioid use, unspecified, uncomplicated; F10.10 Alcohol abuse, uncomplicated; F03.90 Unspecified dementia, unspecified severity, without behavioral disturbance, psychotic disturbance, mood disturbance, and anxiety; F41.9 Anxiety disorder, unspecified; Z79.2 Long term (current) use of antibiotics; Z79.899 Other long term (current) drug therapy; Z87.442 Personal history of urinary calculi; Z79.84 Long term (current) use of oral hypoglycemic drugs; Z79.4 Long term (current) use of insulin; Z95.1 Presence of aortocoronary bypass graft; Z86.73 Personal history of transient ischemic attack (TIA), and cerebral infarction without residual deficits
CPT/HCPCS: 15271; A6209; A6222; Q4187; A4663; A6250; A6446

== ENCOUNTER 2019-06-27 10:20 | Outpatient (CLI) | payer MEDICARE, MEDICAID ==
[2019-06-27] MEDS ORDERED: LIDOcaine 2% 5ml jelly ONE (11:11)
== END 2019-06-27 12:10 | disposition home or self-care (01) ==
LOC: WOUND CARE 10:20 → EDSTATUS 10:30 → WOUND CARE 12:10
PROVIDERS: ATTEND Surgery
DX: E11.622 Type 2 diabetes mellitus with other skin ulcer (principal); I70.248 Atherosclerosis of native arteries of left leg with ulceration of other part of lower leg; I83.228 Varicose veins of left lower extremity with both ulcer of other part of lower extremity and inflammation; L97.822 Non-pressure chronic ulcer of other part of left lower leg with fat layer exposed; I70.242 Atherosclerosis of native arteries of left leg with ulceration of calf; I83.022 Varicose veins of left lower extremity with ulcer of calf; L97.221 Non-pressure chronic ulcer of left calf limited to breakdown of skin; I83.023 Varicose veins of left lower extremity with ulcer of ankle; L97.322 Non-pressure chronic ulcer of left ankle with fat layer exposed; E11.621 Type 2 diabetes mellitus with foot ulcer; I83.025 Varicose veins of left lower extremity with ulcer other part of foot; L97.522 Non-pressure chronic ulcer of other part of left foot with fat layer exposed; I25.10 Atherosclerotic heart disease of native coronary artery without angina pectoris; J44.9 Chronic obstructive pulmonary disease, unspecified; I10 Essential (primary) hypertension; E11.69 Type 2 diabetes mellitus with other specified complication; M86.672 Other chronic osteomyelitis, left ankle and foot; E78.00 Pure hypercholesterolemia, unspecified; I77.1 Stricture of artery; F32.9 Major depressive disorder, single episode, unspecified; F17.210 Nicotine dependence, cigarettes, uncomplicated; F11.90 Opioid use, unspecified, uncomplicated; F10.10 Alcohol abuse, uncomplicated; F03.90 Unspecified dementia, unspecified severity, without behavioral disturbance, psychotic disturbance, mood disturbance, and anxiety; F41.9 Anxiety disorder, unspecified; Z79.2 Long term (current) use of antibiotics; Z79.899 Other long term (current) drug therapy; Z87.442 Personal history of urinary calculi; Z79.84 Long term (current) use of oral hypoglycemic drugs; Z79.4 Long term (current) use of insulin; Z95.1 Presence of aortocoronary bypass graft; Z86.73 Personal history of transient ischemic attack (TIA), and cerebral infarction without residual deficits
CPT/HCPCS: A4663; A6021; A6154; A6446; G0463

== ENCOUNTER 2019-07-04 10:23 | Day surgery (SDC) | payer MEDICARE, MEDICAID ==
[2019-07-04] MEDS ORDERED: LIDOcaine 2% 5ml jelly ONE (10:56)
== END 2019-07-04 12:00 | disposition home or self-care (01) ==
LOC: WOUND CARE 10:23
PROVIDERS: ATTEND Surgery
DX: E11.622 Type 2 diabetes mellitus with other skin ulcer (principal); I70.248 Atherosclerosis of native arteries of left leg with ulceration of other part of lower leg; I83.228 Varicose veins of left lower extremity with both ulcer of other part of lower extremity and inflammation; L97.822 Non-pressure chronic ulcer of other part of left lower leg with fat layer exposed; I70.242 Atherosclerosis of native arteries of left leg with ulceration of calf; I83.022 Varicose veins of left lower extremity with ulcer of calf; L97.221 Non-pressure chronic ulcer of left calf limited to breakdown of skin; I83.023 Varicose veins of left lower extremity with ulcer of ankle; L97.322 Non-pressure chronic ulcer of left ankle with fat layer exposed; E11.621 Type 2 diabetes mellitus with foot ulcer; I83.025 Varicose veins of left lower extremity with ulcer other part of foot; L97.522 Non-pressure chronic ulcer of other part of left foot with fat layer exposed; I25.10 Atherosclerotic heart disease of native coronary artery without angina pectoris; J44.9 Chronic obstructive pulmonary disease, unspecified; I10 Essential (primary) hypertension; E11.69 Type 2 diabetes mellitus with other specified complication; M86.672 Other chronic osteomyelitis, left ankle and foot; E78.00 Pure hypercholesterolemia, unspecified; I77.1 Stricture of artery; F32.9 Major depressive disorder, single episode, unspecified; F17.210 Nicotine dependence, cigarettes, uncomplicated; F11.90 Opioid use, unspecified, uncomplicated; F10.10 Alcohol abuse, uncomplicated; F03.90 Unspecified dementia, unspecified severity, without behavioral disturbance, psychotic disturbance, mood disturbance, and anxiety; F41.9 Anxiety disorder, unspecified; Z79.2 Long term (current) use of antibiotics; Z79.899 Other long term (current) drug therapy; Z87.442 Personal history of urinary calculi; Z79.84 Long term (current) use of oral hypoglycemic drugs; Z79.4 Long term (current) use of insulin; Z95.1 Presence of aortocoronary bypass graft; Z86.73 Personal history of transient ischemic attack (TIA), and cerebral infarction without residual deficits
CPT/HCPCS: 15271; A6209; A6222; Q4160; A4663; A6250; A6446

== ENCOUNTER 2019-07-11 10:37 | Day surgery (SDC) | payer MEDICARE, MEDICAID ==
[2019-07-11] MEDS ORDERED: LIDOcaine 2% 5ml jelly ONE (11:03)
== END 2019-07-11 12:25 | disposition home or self-care (01) ==
LOC: WOUND CARE 10:37
PROVIDERS: ATTEND Surgery
DX: E11.622 Type 2 diabetes mellitus with other skin ulcer (principal); I70.248 Atherosclerosis of native arteries of left leg with ulceration of other part of lower leg; I83.228 Varicose veins of left lower extremity with both ulcer of other part of lower extremity and inflammation; L97.822 Non-pressure chronic ulcer of other part of left lower leg with fat layer exposed; I70.242 Atherosclerosis of native arteries of left leg with ulceration of calf; I83.022 Varicose veins of left lower extremity with ulcer of calf; L97.221 Non-pressure chronic ulcer of left calf limited to breakdown of skin; I83.023 Varicose veins of left lower extremity with ulcer of ankle; L97.322 Non-pressure chronic ulcer of left ankle with fat layer exposed; E11.621 Type 2 diabetes mellitus with foot ulcer; I83.025 Varicose veins of left lower extremity with ulcer other part of foot; L97.522 Non-pressure chronic ulcer of other part of left foot with fat layer exposed; I25.10 Atherosclerotic heart disease of native coronary artery without angina pectoris; J44.9 Chronic obstructive pulmonary disease, unspecified; I10 Essential (primary) hypertension; E11.69 Type 2 diabetes mellitus with other specified complication; M86.672 Other chronic osteomyelitis, left ankle and foot; E78.00 Pure hypercholesterolemia, unspecified; I77.1 Stricture of artery; F32.9 Major depressive disorder, single episode, unspecified; F17.210 Nicotine dependence, cigarettes, uncomplicated; F11.90 Opioid use, unspecified, uncomplicated; F10.10 Alcohol abuse, uncomplicated; F03.90 Unspecified dementia, unspecified severity, without behavioral disturbance, psychotic disturbance, mood disturbance, and anxiety; F41.9 Anxiety disorder, unspecified; Z79.2 Long term (current) use of antibiotics; Z79.899 Other long term (current) drug therapy; Z87.442 Personal history of urinary calculi; Z79.84 Long term (current) use of oral hypoglycemic drugs; Z79.4 Long term (current) use of insulin; Z95.1 Presence of aortocoronary bypass graft; Z86.73 Personal history of transient ischemic attack (TIA), and cerebral infarction without residual deficits
CPT/HCPCS: A4663; A6021; A6446; G0463

== ENCOUNTER 2019-07-18 10:37 | Day surgery (SDC) | payer MEDICARE, MEDICAID ==
[2019-07-18] MEDS ORDERED: LIDOcaine 2% 5ml jelly ONE ×2 (11:38)
== END 2019-07-18 12:16 | disposition home or self-care (01) ==
LOC: WOUND CARE 10:37
PROVIDERS: ATTEND Surgery
DX: E11.622 Type 2 diabetes mellitus with other skin ulcer (principal); I70.248 Atherosclerosis of native arteries of left leg with ulceration of other part of lower leg; I83.228 Varicose veins of left lower extremity with both ulcer of other part of lower extremity and inflammation; L97.822 Non-pressure chronic ulcer of other part of left lower leg with fat layer exposed; I70.242 Atherosclerosis of native arteries of left leg with ulceration of calf; I83.022 Varicose veins of left lower extremity with ulcer of calf; L97.221 Non-pressure chronic ulcer of left calf limited to breakdown of skin; I83.023 Varicose veins of left lower extremity with ulcer of ankle; L97.322 Non-pressure chronic ulcer of left ankle with fat layer exposed; E11.621 Type 2 diabetes mellitus with foot ulcer; I83.025 Varicose veins of left lower extremity with ulcer other part of foot; L89.890 Pressure ulcer of other site, unstageable; L97.522 Non-pressure chronic ulcer of other part of left foot with fat layer exposed; I25.10 Atherosclerotic heart disease of native coronary artery without angina pectoris; J44.9 Chronic obstructive pulmonary disease, unspecified; I10 Essential (primary) hypertension; E11.69 Type 2 diabetes mellitus with other specified complication; M86.672 Other chronic osteomyelitis, left ankle and foot; E78.00 Pure hypercholesterolemia, unspecified; I77.1 Stricture of artery; F32.9 Major depressive disorder, single episode, unspecified; F17.210 Nicotine dependence, cigarettes, uncomplicated; F11.90 Opioid use, unspecified, uncomplicated; F10.10 Alcohol abuse, uncomplicated; F03.90 Unspecified dementia, unspecified severity, without behavioral disturbance, psychotic disturbance, mood disturbance, and anxiety; F41.9 Anxiety disorder, unspecified; Z79.2 Long term (current) use of antibiotics; Z79.899 Other long term (current) drug therapy; Z87.442 Personal history of urinary calculi; Z79.84 Long term (current) use of oral hypoglycemic drugs; Z79.4 Long term (current) use of insulin; Z95.1 Presence of aortocoronary bypass graft; Z86.73 Personal history of transient ischemic attack (TIA), and cerebral infarction without residual deficits
CPT/HCPCS: 87070; 87075; 87077; 87102; 87186; A4663; A6021; A6154; A6446

== ENCOUNTER 2019-07-25 10:32 | Day surgery (SDC) | payer MEDICARE, MEDICAID ==
[2019-07-25] MEDS ORDERED: LIDOcaine 2% 5ml jelly ONE (11:01)
== END 2019-07-25 11:40 | disposition home or self-care (01) ==
LOC: WOUND CARE 10:32
PROVIDERS: ATTEND Surgery
DX: E11.622 Type 2 diabetes mellitus with other skin ulcer (principal); I70.248 Atherosclerosis of native arteries of left leg with ulceration of other part of lower leg; I83.228 Varicose veins of left lower extremity with both ulcer of other part of lower extremity and inflammation; L89.893 Pressure ulcer of other site, stage 3; L97.822 Non-pressure chronic ulcer of other part of left lower leg with fat layer exposed; I70.242 Atherosclerosis of native arteries of left leg with ulceration of calf; I83.022 Varicose veins of left lower extremity with ulcer of calf; L97.221 Non-pressure chronic ulcer of left calf limited to breakdown of skin; I83.023 Varicose veins of left lower extremity with ulcer of ankle; L97.322 Non-pressure chronic ulcer of left ankle with fat layer exposed; E11.621 Type 2 diabetes mellitus with foot ulcer; I83.025 Varicose veins of left lower extremity with ulcer other part of foot; L89.890 Pressure ulcer of other site, unstageable; L97.522 Non-pressure chronic ulcer of other part of left foot with fat layer exposed; I25.10 Atherosclerotic heart disease of native coronary artery without angina pectoris; J44.9 Chronic obstructive pulmonary disease, unspecified; I10 Essential (primary) hypertension; E11.69 Type 2 diabetes mellitus with other specified complication; M86.672 Other chronic osteomyelitis, left ankle and foot; E78.00 Pure hypercholesterolemia, unspecified; I77.1 Stricture of artery; F32.9 Major depressive disorder, single episode, unspecified; F17.210 Nicotine dependence, cigarettes, uncomplicated; F11.90 Opioid use, unspecified, uncomplicated; F10.10 Alcohol abuse, uncomplicated; F03.90 Unspecified dementia, unspecified severity, without behavioral disturbance, psychotic disturbance, mood disturbance, and anxiety; F41.9 Anxiety disorder, unspecified; Z79.2 Long term (current) use of antibiotics; Z79.899 Other long term (current) drug therapy; Z87.442 Personal history of urinary calculi; Z79.84 Long term (current) use of oral hypoglycemic drugs; Z79.4 Long term (current) use of insulin; Z95.1 Presence of aortocoronary bypass graft; Z86.73 Personal history of transient ischemic attack (TIA), and cerebral infarction without residual deficits
CPT/HCPCS: A4663; A6021; A6154; A6446

== ENCOUNTER 2019-07-29 10:12 | Day surgery (SDC) | payer MEDICARE, MEDICAID ==
[2019-07-29] MEDS ORDERED: LIDOcaine 2% 5ml jelly ONE (10:42)
[2019-07-29] MEDS ORDERED: hydrocortisone 1% cream 28gm TP ONE (11:34)
== END 2019-07-29 11:53 | disposition home or self-care (01) ==
LOC: WOUND CARE 10:12
PROVIDERS: ATTEND Surgery
DX: E11.622 Type 2 diabetes mellitus with other skin ulcer (principal); I70.248 Atherosclerosis of native arteries of left leg with ulceration of other part of lower leg; I83.228 Varicose veins of left lower extremity with both ulcer of other part of lower extremity and inflammation; L89.890 Pressure ulcer of other site, unstageable; L97.822 Non-pressure chronic ulcer of other part of left lower leg with fat layer exposed; I70.242 Atherosclerosis of native arteries of left leg with ulceration of calf; I83.022 Varicose veins of left lower extremity with ulcer of calf; L97.221 Non-pressure chronic ulcer of left calf limited to breakdown of skin; I83.023 Varicose veins of left lower extremity with ulcer of ankle; L97.322 Non-pressure chronic ulcer of left ankle with fat layer exposed; E11.621 Type 2 diabetes mellitus with foot ulcer; I83.025 Varicose veins of left lower extremity with ulcer other part of foot; L97.522 Non-pressure chronic ulcer of other part of left foot with fat layer exposed; I25.10 Atherosclerotic heart disease of native coronary artery without angina pectoris; J44.9 Chronic obstructive pulmonary disease, unspecified; I10 Essential (primary) hypertension; E11.69 Type 2 diabetes mellitus with other specified complication; M86.672 Other chronic osteomyelitis, left ankle and foot; E78.00 Pure hypercholesterolemia, unspecified; I77.1 Stricture of artery; F32.9 Major depressive disorder, single episode, unspecified; F17.210 Nicotine dependence, cigarettes, uncomplicated; F11.90 Opioid use, unspecified, uncomplicated; F10.10 Alcohol abuse, uncomplicated; F03.90 Unspecified dementia, unspecified severity, without behavioral disturbance, psychotic disturbance, mood disturbance, and anxiety; F41.9 Anxiety disorder, unspecified; Z79.2 Long term (current) use of antibiotics; Z79.899 Other long term (current) drug therapy; Z87.442 Personal history of urinary calculi; Z79.84 Long term (current) use of oral hypoglycemic drugs; Z79.4 Long term (current) use of insulin; Z95.1 Presence of aortocoronary bypass graft; Z86.73 Personal history of transient ischemic attack (TIA), and cerebral infarction without residual deficits
CPT/HCPCS: A4663; A6021; A6154; A6446

== ENCOUNTER 2019-08-08 10:40 | Day surgery (SDC) | payer MEDICARE, MEDICAID ==
[2019-08-08] MEDS ORDERED: LIDOcaine 2% 5ml jelly ONE (11:11)
[2019-08-08] MEDS ORDERED: hydrocortisone 1% cream 28gm TP ONE (11:50)
== END 2019-08-08 12:03 | disposition home or self-care (01) ==
LOC: WOUND CARE 10:40
PROVIDERS: ATTEND Surgery
DX: E11.622 Type 2 diabetes mellitus with other skin ulcer (principal); I70.248 Atherosclerosis of native arteries of left leg with ulceration of other part of lower leg; I83.228 Varicose veins of left lower extremity with both ulcer of other part of lower extremity and inflammation; L89.890 Pressure ulcer of other site, unstageable; L97.822 Non-pressure chronic ulcer of other part of left lower leg with fat layer exposed; I70.242 Atherosclerosis of native arteries of left leg with ulceration of calf; I83.022 Varicose veins of left lower extremity with ulcer of calf; L97.221 Non-pressure chronic ulcer of left calf limited to breakdown of skin; I83.023 Varicose veins of left lower extremity with ulcer of ankle; L97.322 Non-pressure chronic ulcer of left ankle with fat layer exposed; E11.621 Type 2 diabetes mellitus with foot ulcer; I83.025 Varicose veins of left lower extremity with ulcer other part of foot; L97.522 Non-pressure chronic ulcer of other part of left foot with fat layer exposed; I25.10 Atherosclerotic heart disease of native coronary artery without angina pectoris; J44.9 Chronic obstructive pulmonary disease, unspecified; I10 Essential (primary) hypertension; E11.69 Type 2 diabetes mellitus with other specified complication; M86.672 Other chronic osteomyelitis, left ankle and foot; E78.00 Pure hypercholesterolemia, unspecified; I77.1 Stricture of artery; F32.9 Major depressive disorder, single episode, unspecified; F17.210 Nicotine dependence, cigarettes, uncomplicated; F11.90 Opioid use, unspecified, uncomplicated; F10.10 Alcohol abuse, uncomplicated; F03.90 Unspecified dementia, unspecified severity, without behavioral disturbance, psychotic disturbance, mood disturbance, and anxiety; F41.9 Anxiety disorder, unspecified; Z79.2 Long term (current) use of antibiotics; Z79.899 Other long term (current) drug therapy; Z87.442 Personal history of urinary calculi; Z79.84 Long term (current) use of oral hypoglycemic drugs; Z79.4 Long term (current) use of insulin; Z95.1 Presence of aortocoronary bypass graft; Z86.73 Personal history of transient ischemic attack (TIA), and cerebral infarction without residual deficits
CPT/HCPCS: 97597; A4663; A6021; A6154; A6446

== ENCOUNTER 2019-08-15 10:05 | Day surgery (SDC) | payer MEDICARE, MEDICAID ==
[2019-08-15] MEDS ORDERED: LIDOcaine 2% 5ml jelly ONE (11:10)
[2019-08-15] MEDS ORDERED: hydrocortisone 1% cream 28gm TP ONE (11:29)
== END 2019-08-15 11:38 | disposition home or self-care (01) ==
LOC: WOUND CARE 10:05
PROVIDERS: ATTEND Surgery
DX: E11.622 Type 2 diabetes mellitus with other skin ulcer (principal); I70.248 Atherosclerosis of native arteries of left leg with ulceration of other part of lower leg; I83.228 Varicose veins of left lower extremity with both ulcer of other part of lower extremity and inflammation; L89.890 Pressure ulcer of other site, unstageable; L97.822 Non-pressure chronic ulcer of other part of left lower leg with fat layer exposed; I70.242 Atherosclerosis of native arteries of left leg with ulceration of calf; I83.022 Varicose veins of left lower extremity with ulcer of calf; L97.221 Non-pressure chronic ulcer of left calf limited to breakdown of skin; I83.023 Varicose veins of left lower extremity with ulcer of ankle; L97.322 Non-pressure chronic ulcer of left ankle with fat layer exposed; E11.621 Type 2 diabetes mellitus with foot ulcer; I83.025 Varicose veins of left lower extremity with ulcer other part of foot; L97.522 Non-pressure chronic ulcer of other part of left foot with fat layer exposed; I25.10 Atherosclerotic heart disease of native coronary artery without angina pectoris; J44.9 Chronic obstructive pulmonary disease, unspecified; I10 Essential (primary) hypertension; E11.69 Type 2 diabetes mellitus with other specified complication; M86.672 Other chronic osteomyelitis, left ankle and foot; E78.00 Pure hypercholesterolemia, unspecified; I77.1 Stricture of artery; F32.9 Major depressive disorder, single episode, unspecified; F17.210 Nicotine dependence, cigarettes, uncomplicated; F11.90 Opioid use, unspecified, uncomplicated; F10.10 Alcohol abuse, uncomplicated; F03.90 Unspecified dementia, unspecified severity, without behavioral disturbance, psychotic disturbance, mood disturbance, and anxiety; F41.9 Anxiety disorder, unspecified; Z79.2 Long term (current) use of antibiotics; Z79.899 Other long term (current) drug therapy; Z87.442 Personal history of urinary calculi; Z79.84 Long term (current) use of oral hypoglycemic drugs; Z79.4 Long term (current) use of insulin; Z95.1 Presence of aortocoronary bypass graft; Z86.73 Personal history of transient ischemic attack (TIA), and cerebral infarction without residual deficits
CPT/HCPCS: 15271; 97597; A6209; Q4186; A4663; A6021; A6250; A6446

== ENCOUNTER 2019-08-22 10:20 | Day surgery (SDC) | payer MEDICARE, MEDICAID ==
[2019-08-22] MEDS ORDERED: LIDOcaine 2% 5ml jelly ONE (11:58)
== END 2019-08-22 12:33 | disposition home or self-care (01) ==
LOC: WOUND CARE 10:20
PROVIDERS: ATTEND Surgery
DX: E11.622 Type 2 diabetes mellitus with other skin ulcer (principal); I70.248 Atherosclerosis of native arteries of left leg with ulceration of other part of lower leg; I83.228 Varicose veins of left lower extremity with both ulcer of other part of lower extremity and inflammation; L89.893 Pressure ulcer of other site, stage 3; L97.822 Non-pressure chronic ulcer of other part of left lower leg with fat layer exposed; I70.242 Atherosclerosis of native arteries of left leg with ulceration of calf; I83.022 Varicose veins of left lower extremity with ulcer of calf; L97.221 Non-pressure chronic ulcer of left calf limited to breakdown of skin; I83.023 Varicose veins of left lower extremity with ulcer of ankle; L97.322 Non-pressure chronic ulcer of left ankle with fat layer exposed; E11.621 Type 2 diabetes mellitus with foot ulcer; I83.025 Varicose veins of left lower extremity with ulcer other part of foot; L97.522 Non-pressure chronic ulcer of other part of left foot with fat layer exposed; I25.10 Atherosclerotic heart disease of native coronary artery without angina pectoris; J44.9 Chronic obstructive pulmonary disease, unspecified; I10 Essential (primary) hypertension; E11.69 Type 2 diabetes mellitus with other specified complication; M86.672 Other chronic osteomyelitis, left ankle and foot; E78.00 Pure hypercholesterolemia, unspecified; I77.1 Stricture of artery; F32.9 Major depressive disorder, single episode, unspecified; F17.210 Nicotine dependence, cigarettes, uncomplicated; F11.90 Opioid use, unspecified, uncomplicated; F10.10 Alcohol abuse, uncomplicated; F03.90 Unspecified dementia, unspecified severity, without behavioral disturbance, psychotic disturbance, mood disturbance, and anxiety; F41.9 Anxiety disorder, unspecified; Z79.2 Long term (current) use of antibiotics; Z79.899 Other long term (current) drug therapy; Z87.442 Personal history of urinary calculi; Z79.84 Long term (current) use of oral hypoglycemic drugs; Z79.4 Long term (current) use of insulin; Z95.1 Presence of aortocoronary bypass graft; Z86.73 Personal history of transient ischemic attack (TIA), and cerebral infarction without residual deficits
CPT/HCPCS: 15271; A6209; A6222; Q4186; A6021; A6154; A6250; A6446

== ENCOUNTER 2019-08-28 11:40 | Day surgery (SDC) | payer MEDICARE, MEDICAID ==
[2019-08-28] MEDS ORDERED: LIDOcaine 2% 5ml jelly ONE (11:58)
[2019-08-28] MEDS ORDERED: hydrocortisone 1% cream 28gm TP ONE (12:53)
== END 2019-08-28 13:00 | disposition home or self-care (01) ==
LOC: WOUND CARE 11:40
PROVIDERS: ATTEND Nurse Practitioner Family
DX: E11.622 Type 2 diabetes mellitus with other skin ulcer (principal); I70.248 Atherosclerosis of native arteries of left leg with ulceration of other part of lower leg; I83.228 Varicose veins of left lower extremity with both ulcer of other part of lower extremity and inflammation; L89.893 Pressure ulcer of other site, stage 3; L97.822 Non-pressure chronic ulcer of other part of left lower leg with fat layer exposed; I70.242 Atherosclerosis of native arteries of left leg with ulceration of calf; I83.022 Varicose veins of left lower extremity with ulcer of calf; L97.221 Non-pressure chronic ulcer of left calf limited to breakdown of skin; I83.023 Varicose veins of left lower extremity with ulcer of ankle; L97.322 Non-pressure chronic ulcer of left ankle with fat layer exposed; E11.621 Type 2 diabetes mellitus with foot ulcer; I83.025 Varicose veins of left lower extremity with ulcer other part of foot; L97.522 Non-pressure chronic ulcer of other part of left foot with fat layer exposed; I25.10 Atherosclerotic heart disease of native coronary artery without angina pectoris; J44.9 Chronic obstructive pulmonary disease, unspecified; I10 Essential (primary) hypertension; E11.69 Type 2 diabetes mellitus with other specified complication; M86.672 Other chronic osteomyelitis, left ankle and foot; E78.00 Pure hypercholesterolemia, unspecified; I77.1 Stricture of artery; F32.9 Major depressive disorder, single episode, unspecified; F17.210 Nicotine dependence, cigarettes, uncomplicated; F11.90 Opioid use, unspecified, uncomplicated; F10.10 Alcohol abuse, uncomplicated; F03.90 Unspecified dementia, unspecified severity, without behavioral disturbance, psychotic disturbance, mood disturbance, and anxiety; F41.9 Anxiety disorder, unspecified; Z79.2 Long term (current) use of antibiotics; Z79.899 Other long term (current) drug therapy; Z87.442 Personal history of urinary calculi; Z79.84 Long term (current) use of oral hypoglycemic drugs; Z79.4 Long term (current) use of insulin; Z95.1 Presence of aortocoronary bypass graft; Z86.73 Personal history of transient ischemic attack (TIA), and cerebral infarction without residual deficits
CPT/HCPCS: 97597; A4663; A6021; A6154; A6446

== ENCOUNTER 2019-09-05 10:30 | Day surgery (SDC) | payer MEDICARE, MEDICAID ==
[2019-09-05] MEDS ORDERED: LIDOcaine 2% 5ml jelly ONE (11:15)
[2019-09-05] MEDS ORDERED: hydrocortisone 1% cream 28gm TP ONE (11:55)
== END 2019-09-05 12:05 | disposition home or self-care (01) ==
LOC: WOUND CARE 10:30
PROVIDERS: ATTEND Surgery
DX: E11.622 Type 2 diabetes mellitus with other skin ulcer (principal); I70.248 Atherosclerosis of native arteries of left leg with ulceration of other part of lower leg; I83.228 Varicose veins of left lower extremity with both ulcer of other part of lower extremity and inflammation; L97.824 Non-pressure chronic ulcer of other part of left lower leg with necrosis of bone; I70.242 Atherosclerosis of native arteries of left leg with ulceration of calf; I83.022 Varicose veins of left lower extremity with ulcer of calf; L97.221 Non-pressure chronic ulcer of left calf limited to breakdown of skin; I83.023 Varicose veins of left lower extremity with ulcer of ankle; L97.322 Non-pressure chronic ulcer of left ankle with fat layer exposed; E11.621 Type 2 diabetes mellitus with foot ulcer; I83.025 Varicose veins of left lower extremity with ulcer other part of foot; L97.522 Non-pressure chronic ulcer of other part of left foot with fat layer exposed; I25.10 Atherosclerotic heart disease of native coronary artery without angina pectoris; J44.9 Chronic obstructive pulmonary disease, unspecified; I10 Essential (primary) hypertension; E11.69 Type 2 diabetes mellitus with other specified complication; M86.672 Other chronic osteomyelitis, left ankle and foot; E78.00 Pure hypercholesterolemia, unspecified; I77.1 Stricture of artery; F32.9 Major depressive disorder, single episode, unspecified; F17.210 Nicotine dependence, cigarettes, uncomplicated; F11.90 Opioid use, unspecified, uncomplicated; F10.10 Alcohol abuse, uncomplicated; F03.90 Unspecified dementia, unspecified severity, without behavioral disturbance, psychotic disturbance, mood disturbance, and anxiety; F41.9 Anxiety disorder, unspecified; Z79.2 Long term (current) use of antibiotics; Z79.899 Other long term (current) drug therapy; Z87.442 Personal history of urinary calculi; Z79.84 Long term (current) use of oral hypoglycemic drugs; Z79.4 Long term (current) use of insulin; Z95.1 Presence of aortocoronary bypass graft; Z86.73 Personal history of transient ischemic attack (TIA), and cerebral infarction without residual deficits
CPT/HCPCS: 97597; A4663; A6021; A6154; A6446

== ENCOUNTER 2019-09-12 10:25 | Day surgery (SDC) | payer MEDICARE, MEDICAID | END 2019-09-12 11:59 | disposition home or self-care (01) | LOC: WOUND CARE 10:25 | PROVIDERS: ATTEND Surgery | DX: E11.622 Type 2 diabetes mellitus with other skin ulcer (principal); I70.248 Atherosclerosis of native arteries of left leg with ulceration of other part of lower leg; I83.228 Varicose veins of left lower extremity with both ulcer of other part of lower extremity and inflammation; L97.824 Non-pressure chronic ulcer of other part of left lower leg with necrosis of bone; I70.242 Atherosclerosis of native arteries of left leg with ulceration of calf; I83.022 Varicose veins of left lower extremity with ulcer of calf; L97.221 Non-pressure chronic ulcer of left calf limited to breakdown of skin; I83.023 Varicose veins of left lower extremity with ulcer of ankle; L97.322 Non-pressure chronic ulcer of left ankle with fat layer exposed; E11.621 Type 2 diabetes mellitus with foot ulcer; I83.025 Varicose veins of left lower extremity with ulcer other part of foot; L97.522 Non-pressure chronic ulcer of other part of left foot with fat layer exposed; I25.10 Atherosclerotic heart disease of native coronary artery without angina pectoris; J44.9 Chronic obstructive pulmonary disease, unspecified; I10 Essential (primary) hypertension; E11.69 Type 2 diabetes mellitus with other specified complication; M86.672 Other chronic osteomyelitis, left ankle and foot; E78.00 Pure hypercholesterolemia, unspecified; I77.1 Stricture of artery; F32.9 Major depressive disorder, single episode, unspecified; F17.210 Nicotine dependence, cigarettes, uncomplicated; F11.90 Opioid use, unspecified, uncomplicated; F10.10 Alcohol abuse, uncomplicated; F03.90 Unspecified dementia, unspecified severity, without behavioral disturbance, psychotic disturbance, mood disturbance, and anxiety; F41.9 Anxiety disorder, unspecified; Z79.2 Long term (current) use of antibiotics; Z79.899 Other long term (current) drug therapy; Z87.442 Personal history of urinary calculi; Z79.84 Long term (current) use of oral hypoglycemic drugs; Z79.4 Long term (current) use of insulin; Z95.1 Presence of aortocoronary bypass graft; Z86.73 Personal history of transient ischemic attack (TIA), and cerebral infarction without residual deficits | CPT/HCPCS: 15271; 97597; A6222; Q4160; A4663; A6250; A6446 ==

== ENCOUNTER 2019-09-19 10:37 | Day surgery (SDC) | payer MEDICARE, MEDICAID ==
[2019-09-19] MEDS ORDERED: LIDOcaine 2% 5ml jelly ONE (11:20)
[2019-09-19] MEDS ORDERED: gentamicin 0.1% topical ointment 15gm TP ONE (11:35)
[2019-09-19] MEDS ORDERED: nystatin/triamcinolone cream 15gm TP ONE (11:35)
== END 2019-09-19 11:49 | disposition home or self-care (01) ==
LOC: WOUND CARE 10:37
PROVIDERS: ATTEND Surgery
DX: E11.622 Type 2 diabetes mellitus with other skin ulcer (principal); I83.022 Varicose veins of left lower extremity with ulcer of calf; I70.242 Atherosclerosis of native arteries of left leg with ulceration of calf; L89.93 Pressure ulcer of unspecified site, stage 3; L97.226 Non-pressure chronic ulcer of left calf with bone involvement without evidence of necrosis; E11.69 Type 2 diabetes mellitus with other specified complication; M86.672 Other chronic osteomyelitis, left ankle and foot; E11.51 Type 2 diabetes mellitus with diabetic peripheral angiopathy without gangrene; S81.802D Unspecified open wound, left lower leg, subsequent encounter; I25.10 Atherosclerotic heart disease of native coronary artery without angina pectoris; I10 Essential (primary) hypertension; I87.2 Venous insufficiency (chronic) (peripheral); J44.9 Chronic obstructive pulmonary disease, unspecified; I77.1 Stricture of artery; E78.00 Pure hypercholesterolemia, unspecified; F41.9 Anxiety disorder, unspecified; F03.90 Unspecified dementia, unspecified severity, without behavioral disturbance, psychotic disturbance, mood disturbance, and anxiety; F17.210 Nicotine dependence, cigarettes, uncomplicated; F11.90 Opioid use, unspecified, uncomplicated; F32.9 Major depressive disorder, single episode, unspecified; Z79.4 Long term (current) use of insulin; Z79.899 Other long term (current) drug therapy; Z79.84 Long term (current) use of oral hypoglycemic drugs; Z79.2 Long term (current) use of antibiotics; Z95.1 Presence of aortocoronary bypass graft; Z87.442 Personal history of urinary calculi; Z86.73 Personal history of transient ischemic attack (TIA), and cerebral infarction without residual deficits; X58.XXXD Exposure to other specified factors, subsequent encounter
CPT/HCPCS: G0463; J7999; A4663; A6021; A6154; A6446

== ENCOUNTER 2019-09-26 10:30 | Day surgery (SDC) | payer MEDICARE, MEDICAID ==
[2019-09-26] MEDS ORDERED: LIDOcaine 2% 5ml jelly ONE (11:25)
[2019-09-26] MEDS ORDERED: nystatin/triamcinolone cream 15gm TP ONE (11:48)
== END 2019-09-26 12:03 | disposition home or self-care (01) ==
LOC: WOUND CARE 10:30
PROVIDERS: ATTEND Surgery
DX: E11.622 Type 2 diabetes mellitus with other skin ulcer (principal); I70.248 Atherosclerosis of native arteries of left leg with ulceration of other part of lower leg; I83.228 Varicose veins of left lower extremity with both ulcer of other part of lower extremity and inflammation; L97.824 Non-pressure chronic ulcer of other part of left lower leg with necrosis of bone; I70.242 Atherosclerosis of native arteries of left leg with ulceration of calf; I83.022 Varicose veins of left lower extremity with ulcer of calf; L97.221 Non-pressure chronic ulcer of left calf limited to breakdown of skin; I83.023 Varicose veins of left lower extremity with ulcer of ankle; L97.322 Non-pressure chronic ulcer of left ankle with fat layer exposed; E11.621 Type 2 diabetes mellitus with foot ulcer; I83.025 Varicose veins of left lower extremity with ulcer other part of foot; L97.522 Non-pressure chronic ulcer of other part of left foot with fat layer exposed; I25.10 Atherosclerotic heart disease of native coronary artery without angina pectoris; J44.9 Chronic obstructive pulmonary disease, unspecified; I10 Essential (primary) hypertension; E11.69 Type 2 diabetes mellitus with other specified complication; M86.672 Other chronic osteomyelitis, left ankle and foot; E78.00 Pure hypercholesterolemia, unspecified; I77.1 Stricture of artery; F32.9 Major depressive disorder, single episode, unspecified; F17.210 Nicotine dependence, cigarettes, uncomplicated; F11.90 Opioid use, unspecified, uncomplicated; F10.10 Alcohol abuse, uncomplicated; F03.90 Unspecified dementia, unspecified severity, without behavioral disturbance, psychotic disturbance, mood disturbance, and anxiety; F41.9 Anxiety disorder, unspecified; Z79.2 Long term (current) use of antibiotics; Z79.899 Other long term (current) drug therapy; Z87.442 Personal history of urinary calculi; Z79.84 Long term (current) use of oral hypoglycemic drugs; Z79.4 Long term (current) use of insulin; Z95.1 Presence of aortocoronary bypass graft; Z86.73 Personal history of transient ischemic attack (TIA), and cerebral infarction without residual deficits
CPT/HCPCS: G0463; J7999; A4663; A6021; A6154; A6446

== ENCOUNTER 2019-10-03 10:34 | Day surgery (SDC) | payer MEDICARE, MEDICAID ==
[2019-10-03] MEDS ORDERED: LIDOcaine 2% 5ml jelly ONE (11:33)
[2019-10-03] MEDS ORDERED: gentamicin 0.1% topical ointment 15gm TP ONE (11:55)
== END 2019-10-03 12:09 | disposition home or self-care (01) ==
LOC: WOUND CARE 10:34
PROVIDERS: ATTEND Surgery
DX: E11.622 Type 2 diabetes mellitus with other skin ulcer (principal); I70.248 Atherosclerosis of native arteries of left leg with ulceration of other part of lower leg; I83.228 Varicose veins of left lower extremity with both ulcer of other part of lower extremity and inflammation; L97.824 Non-pressure chronic ulcer of other part of left lower leg with necrosis of bone; I70.242 Atherosclerosis of native arteries of left leg with ulceration of calf; I83.022 Varicose veins of left lower extremity with ulcer of calf; L97.221 Non-pressure chronic ulcer of left calf limited to breakdown of skin; I83.023 Varicose veins of left lower extremity with ulcer of ankle; L97.322 Non-pressure chronic ulcer of left ankle with fat layer exposed; E11.621 Type 2 diabetes mellitus with foot ulcer; I83.025 Varicose veins of left lower extremity with ulcer other part of foot; L97.522 Non-pressure chronic ulcer of other part of left foot with fat layer exposed; I25.10 Atherosclerotic heart disease of native coronary artery without angina pectoris; J44.9 Chronic obstructive pulmonary disease, unspecified; I10 Essential (primary) hypertension; E11.69 Type 2 diabetes mellitus with other specified complication; M86.672 Other chronic osteomyelitis, left ankle and foot; E78.00 Pure hypercholesterolemia, unspecified; I77.1 Stricture of artery; F32.9 Major depressive disorder, single episode, unspecified; F17.210 Nicotine dependence, cigarettes, uncomplicated; F11.90 Opioid use, unspecified, uncomplicated; F10.10 Alcohol abuse, uncomplicated; F03.90 Unspecified dementia, unspecified severity, without behavioral disturbance, psychotic disturbance, mood disturbance, and anxiety; F41.9 Anxiety disorder, unspecified; Z79.2 Long term (current) use of antibiotics; Z79.899 Other long term (current) drug therapy; Z87.442 Personal history of urinary calculi; Z79.84 Long term (current) use of oral hypoglycemic drugs; Z79.4 Long term (current) use of insulin; Z95.1 Presence of aortocoronary bypass graft; Z86.73 Personal history of transient ischemic attack (TIA), and cerebral infarction without residual deficits
CPT/HCPCS: 15271; Q4160; A4663; A6154; A6250; A6446

== ENCOUNTER 2019-10-10 10:35 | Outpatient (CLI) | payer MEDICARE, MEDICAID ==
[2019-10-10] MEDS ORDERED: gentamicin 0.1% topical ointment 15gm TP ONE (11:22)
== END 2019-10-10 12:25 | disposition home or self-care (01) ==
LOC: WOUND CARE 10:35
PROVIDERS: ATTEND Surgery
DX: E11.622 Type 2 diabetes mellitus with other skin ulcer (principal); I70.248 Atherosclerosis of native arteries of left leg with ulceration of other part of lower leg; I83.228 Varicose veins of left lower extremity with both ulcer of other part of lower extremity and inflammation; L97.824 Non-pressure chronic ulcer of other part of left lower leg with necrosis of bone; I70.242 Atherosclerosis of native arteries of left leg with ulceration of calf; I83.022 Varicose veins of left lower extremity with ulcer of calf; L97.221 Non-pressure chronic ulcer of left calf limited to breakdown of skin; I83.023 Varicose veins of left lower extremity with ulcer of ankle; L97.322 Non-pressure chronic ulcer of left ankle with fat layer exposed; E11.621 Type 2 diabetes mellitus with foot ulcer; I83.025 Varicose veins of left lower extremity with ulcer other part of foot; L97.522 Non-pressure chronic ulcer of other part of left foot with fat layer exposed; I25.10 Atherosclerotic heart disease of native coronary artery without angina pectoris; J44.9 Chronic obstructive pulmonary disease, unspecified; I10 Essential (primary) hypertension; E11.69 Type 2 diabetes mellitus with other specified complication; M86.672 Other chronic osteomyelitis, left ankle and foot; E78.00 Pure hypercholesterolemia, unspecified; I77.1 Stricture of artery; F32.9 Major depressive disorder, single episode, unspecified; F17.210 Nicotine dependence, cigarettes, uncomplicated; F11.90 Opioid use, unspecified, uncomplicated; F10.10 Alcohol abuse, uncomplicated; F03.90 Unspecified dementia, unspecified severity, without behavioral disturbance, psychotic disturbance, mood disturbance, and anxiety; F41.9 Anxiety disorder, unspecified; Z79.2 Long term (current) use of antibiotics; Z79.899 Other long term (current) drug therapy; Z87.442 Personal history of urinary calculi; Z79.84 Long term (current) use of oral hypoglycemic drugs; Z79.4 Long term (current) use of insulin; Z95.1 Presence of aortocoronary bypass graft; Z86.73 Personal history of transient ischemic attack (TIA), and cerebral infarction without residual deficits
CPT/HCPCS: 15271; Q4186

== ENCOUNTER 2019-10-17 10:33 | Outpatient (CLI) | payer MEDICARE, MEDICAID ==
[2019-10-17] MEDS ORDERED: LIDOcaine 2% 5ml jelly ONE (10:55)
[2019-10-17] MEDS ORDERED: gentamicin 0.1% topical ointment 15gm TP ONE (11:26)
== END 2019-10-17 11:40 | disposition home or self-care (01) ==
LOC: WOUND CARE 10:33
PROVIDERS: ATTEND Surgery
DX: E11.622 Type 2 diabetes mellitus with other skin ulcer (principal); I70.248 Atherosclerosis of native arteries of left leg with ulceration of other part of lower leg; I83.228 Varicose veins of left lower extremity with both ulcer of other part of lower extremity and inflammation; L97.824 Non-pressure chronic ulcer of other part of left lower leg with necrosis of bone; I70.242 Atherosclerosis of native arteries of left leg with ulceration of calf; I83.022 Varicose veins of left lower extremity with ulcer of calf; L97.221 Non-pressure chronic ulcer of left calf limited to breakdown of skin; I83.023 Varicose veins of left lower extremity with ulcer of ankle; L97.322 Non-pressure chronic ulcer of left ankle with fat layer exposed; E11.621 Type 2 diabetes mellitus with foot ulcer; I83.025 Varicose veins of left lower extremity with ulcer other part of foot; L97.522 Non-pressure chronic ulcer of other part of left foot with fat layer exposed; I25.10 Atherosclerotic heart disease of native coronary artery without angina pectoris; J44.9 Chronic obstructive pulmonary disease, unspecified; I10 Essential (primary) hypertension; E11.69 Type 2 diabetes mellitus with other specified complication; M86.672 Other chronic osteomyelitis, left ankle and foot; E78.00 Pure hypercholesterolemia, unspecified; I77.1 Stricture of artery; F32.9 Major depressive disorder, single episode, unspecified; F17.210 Nicotine dependence, cigarettes, uncomplicated; F11.90 Opioid use, unspecified, uncomplicated; F10.10 Alcohol abuse, uncomplicated; F03.90 Unspecified dementia, unspecified severity, without behavioral disturbance, psychotic disturbance, mood disturbance, and anxiety; F41.9 Anxiety disorder, unspecified; Z79.2 Long term (current) use of antibiotics; Z79.899 Other long term (current) drug therapy; Z87.442 Personal history of urinary calculi; Z79.84 Long term (current) use of oral hypoglycemic drugs; Z79.4 Long term (current) use of insulin; Z95.1 Presence of aortocoronary bypass graft; Z86.73 Personal history of transient ischemic attack (TIA), and cerebral infarction without residual deficits
CPT/HCPCS: G0463

== ENCOUNTER 2019-10-24 10:33 | Day surgery (SDC) | payer MEDICARE, MEDICAID ==
[2019-10-24] MEDS ORDERED: LIDOcaine 2% 5ml jelly ONE (10:53)
[2019-10-24] MEDS ORDERED: hydrocortisone 1% cream 28gm TP ONE (11:41)
== END 2019-10-24 12:00 | disposition home or self-care (01) ==
LOC: WOUND CARE 10:33
PROVIDERS: ATTEND Surgery
DX: E11.622 Type 2 diabetes mellitus with other skin ulcer (principal); I70.248 Atherosclerosis of native arteries of left leg with ulceration of other part of lower leg; I83.228 Varicose veins of left lower extremity with both ulcer of other part of lower extremity and inflammation; L97.824 Non-pressure chronic ulcer of other part of left lower leg with necrosis of bone; I70.242 Atherosclerosis of native arteries of left leg with ulceration of calf; I83.022 Varicose veins of left lower extremity with ulcer of calf; L97.221 Non-pressure chronic ulcer of left calf limited to breakdown of skin; I83.023 Varicose veins of left lower extremity with ulcer of ankle; L97.322 Non-pressure chronic ulcer of left ankle with fat layer exposed; E11.621 Type 2 diabetes mellitus with foot ulcer; I83.025 Varicose veins of left lower extremity with ulcer other part of foot; L97.522 Non-pressure chronic ulcer of other part of left foot with fat layer exposed; I25.10 Atherosclerotic heart disease of native coronary artery without angina pectoris; J44.9 Chronic obstructive pulmonary disease, unspecified; I10 Essential (primary) hypertension; E11.69 Type 2 diabetes mellitus with other specified complication; M86.672 Other chronic osteomyelitis, left ankle and foot; E78.00 Pure hypercholesterolemia, unspecified; I77.1 Stricture of artery; F32.9 Major depressive disorder, single episode, unspecified; F17.210 Nicotine dependence, cigarettes, uncomplicated; F11.90 Opioid use, unspecified, uncomplicated; F10.10 Alcohol abuse, uncomplicated; F03.90 Unspecified dementia, unspecified severity, without behavioral disturbance, psychotic disturbance, mood disturbance, and anxiety; F41.9 Anxiety disorder, unspecified; Z79.2 Long term (current) use of antibiotics; Z79.899 Other long term (current) drug therapy; Z87.442 Personal history of urinary calculi; Z79.84 Long term (current) use of oral hypoglycemic drugs; Z79.4 Long term (current) use of insulin; Z95.1 Presence of aortocoronary bypass graft; Z86.73 Personal history of transient ischemic attack (TIA), and cerebral infarction without residual deficits
CPT/HCPCS: 15271; Q4186

== ENCOUNTER 2019-10-31 10:45 | Day surgery (SDC) | payer MEDICARE, MEDICAID ==
[2019-10-31] MEDS ORDERED: LIDOcaine 2% 5ml jelly ONE (11:19)
[2019-10-31] MEDS ORDERED: gentamicin 0.1% topical ointment 15gm TP ONE (11:51)
[2019-10-31] MEDS ORDERED: hydrocortisone 1% cream 28gm TP ONE (11:51)
== END 2019-10-31 12:06 | disposition home or self-care (01) ==
LOC: WOUND CARE 10:45
PROVIDERS: ATTEND Surgery
DX: E11.622 Type 2 diabetes mellitus with other skin ulcer (principal); I70.248 Atherosclerosis of native arteries of left leg with ulceration of other part of lower leg; I83.228 Varicose veins of left lower extremity with both ulcer of other part of lower extremity and inflammation; L97.824 Non-pressure chronic ulcer of other part of left lower leg with necrosis of bone; I70.242 Atherosclerosis of native arteries of left leg with ulceration of calf; I83.022 Varicose veins of left lower extremity with ulcer of calf; L97.221 Non-pressure chronic ulcer of left calf limited to breakdown of skin; I83.023 Varicose veins of left lower extremity with ulcer of ankle; L97.322 Non-pressure chronic ulcer of left ankle with fat layer exposed; E11.621 Type 2 diabetes mellitus with foot ulcer; I83.025 Varicose veins of left lower extremity with ulcer other part of foot; L97.522 Non-pressure chronic ulcer of other part of left foot with fat layer exposed; I25.10 Atherosclerotic heart disease of native coronary artery without angina pectoris; J44.9 Chronic obstructive pulmonary disease, unspecified; I10 Essential (primary) hypertension; E11.69 Type 2 diabetes mellitus with other specified complication; M86.672 Other chronic osteomyelitis, left ankle and foot; E78.00 Pure hypercholesterolemia, unspecified; I77.1 Stricture of artery; F32.9 Major depressive disorder, single episode, unspecified; F17.210 Nicotine dependence, cigarettes, uncomplicated; F11.90 Opioid use, unspecified, uncomplicated; F10.10 Alcohol abuse, uncomplicated; F03.90 Unspecified dementia, unspecified severity, without behavioral disturbance, psychotic disturbance, mood disturbance, and anxiety; F41.9 Anxiety disorder, unspecified; Z79.2 Long term (current) use of antibiotics; Z79.899 Other long term (current) drug therapy; Z87.442 Personal history of urinary calculi; Z79.84 Long term (current) use of oral hypoglycemic drugs; Z79.4 Long term (current) use of insulin; Z95.1 Presence of aortocoronary bypass graft; Z86.73 Personal history of transient ischemic attack (TIA), and cerebral infarction without residual deficits
CPT/HCPCS: 97597

== ENCOUNTER 2019-11-07 10:30 | Day surgery (SDC) | payer MEDICARE, MEDICAID ==
[2019-11-07] MEDS ORDERED: LIDOcaine 2% 5ml jelly ONE (11:02)
[2019-11-07] MEDS ORDERED: gentamicin 0.1% topical ointment 15gm TP ONE (11:41)
== END 2019-11-07 12:15 | disposition home or self-care (01) ==
LOC: WOUND CARE 10:30
PROVIDERS: ATTEND Surgery
DX: E11.622 Type 2 diabetes mellitus with other skin ulcer (principal); I70.248 Atherosclerosis of native arteries of left leg with ulceration of other part of lower leg; I83.228 Varicose veins of left lower extremity with both ulcer of other part of lower extremity and inflammation; L97.824 Non-pressure chronic ulcer of other part of left lower leg with necrosis of bone; I70.242 Atherosclerosis of native arteries of left leg with ulceration of calf; I83.022 Varicose veins of left lower extremity with ulcer of calf; L97.221 Non-pressure chronic ulcer of left calf limited to breakdown of skin; I83.023 Varicose veins of left lower extremity with ulcer of ankle; L97.322 Non-pressure chronic ulcer of left ankle with fat layer exposed; E11.621 Type 2 diabetes mellitus with foot ulcer; I83.025 Varicose veins of left lower extremity with ulcer other part of foot; L97.522 Non-pressure chronic ulcer of other part of left foot with fat layer exposed; I25.10 Atherosclerotic heart disease of native coronary artery without angina pectoris; J44.9 Chronic obstructive pulmonary disease, unspecified; I10 Essential (primary) hypertension; E11.69 Type 2 diabetes mellitus with other specified complication; M86.672 Other chronic osteomyelitis, left ankle and foot; E78.00 Pure hypercholesterolemia, unspecified; I77.1 Stricture of artery; F32.9 Major depressive disorder, single episode, unspecified; F17.210 Nicotine dependence, cigarettes, uncomplicated; F11.90 Opioid use, unspecified, uncomplicated; F10.10 Alcohol abuse, uncomplicated; F03.90 Unspecified dementia, unspecified severity, without behavioral disturbance, psychotic disturbance, mood disturbance, and anxiety; F41.9 Anxiety disorder, unspecified; Z79.2 Long term (current) use of antibiotics; Z79.899 Other long term (current) drug therapy; Z87.442 Personal history of urinary calculi; Z79.84 Long term (current) use of oral hypoglycemic drugs; Z79.4 Long term (current) use of insulin; Z95.1 Presence of aortocoronary bypass graft; Z86.73 Personal history of transient ischemic attack (TIA), and cerebral infarction without residual deficits
CPT/HCPCS: 15271; 97597; A6209; Q4186; A4663; A6154; A6250; A6446

== ENCOUNTER 2019-11-14 10:42 | Outpatient (CLI) | payer MEDICARE, MEDICAID ==
[2019-11-14] MEDS ORDERED: LIDOcaine 2% 5ml jelly ONE (11:13)
[2019-11-14] MEDS ORDERED: gentamicin 0.1% topical ointment 15gm TP ONE (11:49)
== END 2019-11-14 12:07 | disposition home or self-care (01) ==
LOC: WOUND CARE 10:42
PROVIDERS: ATTEND Surgery
DX: E11.622 Type 2 diabetes mellitus with other skin ulcer (principal); I70.248 Atherosclerosis of native arteries of left leg with ulceration of other part of lower leg; I83.228 Varicose veins of left lower extremity with both ulcer of other part of lower extremity and inflammation; L97.824 Non-pressure chronic ulcer of other part of left lower leg with necrosis of bone; I70.242 Atherosclerosis of native arteries of left leg with ulceration of calf; I83.022 Varicose veins of left lower extremity with ulcer of calf; L97.221 Non-pressure chronic ulcer of left calf limited to breakdown of skin; I83.023 Varicose veins of left lower extremity with ulcer of ankle; L97.322 Non-pressure chronic ulcer of left ankle with fat layer exposed; E11.621 Type 2 diabetes mellitus with foot ulcer; I83.025 Varicose veins of left lower extremity with ulcer other part of foot; L97.522 Non-pressure chronic ulcer of other part of left foot with fat layer exposed; I25.10 Atherosclerotic heart disease of native coronary artery without angina pectoris; J44.9 Chronic obstructive pulmonary disease, unspecified; I10 Essential (primary) hypertension; E11.69 Type 2 diabetes mellitus with other specified complication; M86.672 Other chronic osteomyelitis, left ankle and foot; E78.00 Pure hypercholesterolemia, unspecified; I77.1 Stricture of artery; F32.9 Major depressive disorder, single episode, unspecified; F17.210 Nicotine dependence, cigarettes, uncomplicated; F11.90 Opioid use, unspecified, uncomplicated; F10.10 Alcohol abuse, uncomplicated; F03.90 Unspecified dementia, unspecified severity, without behavioral disturbance, psychotic disturbance, mood disturbance, and anxiety; F41.9 Anxiety disorder, unspecified; Z79.2 Long term (current) use of antibiotics; Z79.899 Other long term (current) drug therapy; Z87.442 Personal history of urinary calculi; Z79.84 Long term (current) use of oral hypoglycemic drugs; Z79.4 Long term (current) use of insulin; Z95.1 Presence of aortocoronary bypass graft; Z86.73 Personal history of transient ischemic attack (TIA), and cerebral infarction without residual deficits
CPT/HCPCS: A4663; A6021; A6154; G0463

== ENCOUNTER 2019-11-21 10:45 | Day surgery (SDC) | payer MEDICARE, MEDICAID ==
[2019-11-21] MEDS ORDERED: LIDOcaine 2% 5ml jelly ONE (11:13)
[2019-11-21] MEDS ORDERED: gentamicin 0.1% topical ointment 15gm TP ONE (11:28)
== END 2019-11-21 12:00 | disposition home or self-care (01) ==
LOC: WOUND CARE 10:45
PROVIDERS: ATTEND Surgery
DX: E11.622 Type 2 diabetes mellitus with other skin ulcer (principal); I70.248 Atherosclerosis of native arteries of left leg with ulceration of other part of lower leg; I83.228 Varicose veins of left lower extremity with both ulcer of other part of lower extremity and inflammation; L97.824 Non-pressure chronic ulcer of other part of left lower leg with necrosis of bone; I70.242 Atherosclerosis of native arteries of left leg with ulceration of calf; I83.022 Varicose veins of left lower extremity with ulcer of calf; L97.221 Non-pressure chronic ulcer of left calf limited to breakdown of skin; I83.023 Varicose veins of left lower extremity with ulcer of ankle; L97.322 Non-pressure chronic ulcer of left ankle with fat layer exposed; E11.621 Type 2 diabetes mellitus with foot ulcer; I83.025 Varicose veins of left lower extremity with ulcer other part of foot; L97.522 Non-pressure chronic ulcer of other part of left foot with fat layer exposed; I25.10 Atherosclerotic heart disease of native coronary artery without angina pectoris; J44.9 Chronic obstructive pulmonary disease, unspecified; I10 Essential (primary) hypertension; E11.69 Type 2 diabetes mellitus with other specified complication; M86.672 Other chronic osteomyelitis, left ankle and foot; E78.00 Pure hypercholesterolemia, unspecified; I77.1 Stricture of artery; F32.9 Major depressive disorder, single episode, unspecified; F17.210 Nicotine dependence, cigarettes, uncomplicated; F11.90 Opioid use, unspecified, uncomplicated; F10.10 Alcohol abuse, uncomplicated; F03.90 Unspecified dementia, unspecified severity, without behavioral disturbance, psychotic disturbance, mood disturbance, and anxiety; F41.9 Anxiety disorder, unspecified; Z79.2 Long term (current) use of antibiotics; Z79.899 Other long term (current) drug therapy; Z87.442 Personal history of urinary calculi; Z79.84 Long term (current) use of oral hypoglycemic drugs; Z79.4 Long term (current) use of insulin; Z95.1 Presence of aortocoronary bypass graft; Z86.73 Personal history of transient ischemic attack (TIA), and cerebral infarction without residual deficits
CPT/HCPCS: 15271; 97597; Q4186

== ENCOUNTER 2019-11-28 10:45 | Outpatient (CLI) | payer MEDICARE, MEDICAID ==
[~2019-11-28 10:45] MED LIST changes: +LIDOcaine 2% 5ml jelly ONE
[2019-11-28] MEDS ORDERED: gentamicin 0.1% topical ointment 15gm TP ONE (11:24)
== END 2019-11-28 11:42 | disposition home or self-care (01) ==
LOC: WOUND CARE 10:45
PROVIDERS: ATTEND Surgery
DX: E11.622 Type 2 diabetes mellitus with other skin ulcer (principal); I70.248 Atherosclerosis of native arteries of left leg with ulceration of other part of lower leg; I83.228 Varicose veins of left lower extremity with both ulcer of other part of lower extremity and inflammation; L97.824 Non-pressure chronic ulcer of other part of left lower leg with necrosis of bone; I70.242 Atherosclerosis of native arteries of left leg with ulceration of calf; I83.022 Varicose veins of left lower extremity with ulcer of calf; L97.221 Non-pressure chronic ulcer of left calf limited to breakdown of skin; I83.023 Varicose veins of left lower extremity with ulcer of ankle; L97.322 Non-pressure chronic ulcer of left ankle with fat layer exposed; E11.621 Type 2 diabetes mellitus with foot ulcer; I83.025 Varicose veins of left lower extremity with ulcer other part of foot; L97.522 Non-pressure chronic ulcer of other part of left foot with fat layer exposed; I25.10 Atherosclerotic heart disease of native coronary artery without angina pectoris; J44.9 Chronic obstructive pulmonary disease, unspecified; I10 Essential (primary) hypertension; E11.69 Type 2 diabetes mellitus with other specified complication; M86.672 Other chronic osteomyelitis, left ankle and foot; E78.00 Pure hypercholesterolemia, unspecified; I77.1 Stricture of artery; F32.9 Major depressive disorder, single episode, unspecified; F17.210 Nicotine dependence, cigarettes, uncomplicated; F11.90 Opioid use, unspecified, uncomplicated; F10.10 Alcohol abuse, uncomplicated; F03.90 Unspecified dementia, unspecified severity, without behavioral disturbance, psychotic disturbance, mood disturbance, and anxiety; F41.9 Anxiety disorder, unspecified; Z79.2 Long term (current) use of antibiotics; Z79.899 Other long term (current) drug therapy; Z87.442 Personal history of urinary calculi; Z79.84 Long term (current) use of oral hypoglycemic drugs; Z79.4 Long term (current) use of insulin; Z95.1 Presence of aortocoronary bypass graft; Z86.73 Personal history of transient ischemic attack (TIA), and cerebral infarction without residual deficits
CPT/HCPCS: G0463

== ENCOUNTER 2019-12-05 11:00 | Outpatient (CLI) | payer MEDICARE, MEDICAID ==
[~2019-12-05 11:00] MED LIST changes: -LIDOcaine 2% 5ml jelly ONE
[2019-12-05] MEDS ORDERED: LIDOcaine 2% 5ml jelly ONE (11:13)
[2019-12-05] MEDS ORDERED: gentamicin 0.1% topical ointment 15gm TP ONE (11:47)
== END 2019-12-05 12:01 | disposition home or self-care (01) ==
LOC: WOUND CARE 11:00
PROVIDERS: ATTEND Nurse Practitioner
DX: E11.622 Type 2 diabetes mellitus with other skin ulcer (principal); I70.248 Atherosclerosis of native arteries of left leg with ulceration of other part of lower leg; I83.228 Varicose veins of left lower extremity with both ulcer of other part of lower extremity and inflammation; L97.824 Non-pressure chronic ulcer of other part of left lower leg with necrosis of bone; I70.242 Atherosclerosis of native arteries of left leg with ulceration of calf; I83.022 Varicose veins of left lower extremity with ulcer of calf; L97.221 Non-pressure chronic ulcer of left calf limited to breakdown of skin; I83.023 Varicose veins of left lower extremity with ulcer of ankle; L97.322 Non-pressure chronic ulcer of left ankle with fat layer exposed; E11.621 Type 2 diabetes mellitus with foot ulcer; I83.025 Varicose veins of left lower extremity with ulcer other part of foot; L97.522 Non-pressure chronic ulcer of other part of left foot with fat layer exposed; I25.10 Atherosclerotic heart disease of native coronary artery without angina pectoris; J44.9 Chronic obstructive pulmonary disease, unspecified; I10 Essential (primary) hypertension; E11.69 Type 2 diabetes mellitus with other specified complication; M86.672 Other chronic osteomyelitis, left ankle and foot; E78.00 Pure hypercholesterolemia, unspecified; I77.1 Stricture of artery; F32.9 Major depressive disorder, single episode, unspecified; F17.210 Nicotine dependence, cigarettes, uncomplicated; F11.90 Opioid use, unspecified, uncomplicated; F10.10 Alcohol abuse, uncomplicated; F03.90 Unspecified dementia, unspecified severity, without behavioral disturbance, psychotic disturbance, mood disturbance, and anxiety; F41.9 Anxiety disorder, unspecified; Z79.2 Long term (current) use of antibiotics; Z79.899 Other long term (current) drug therapy; Z87.442 Personal history of urinary calculi; Z79.84 Long term (current) use of oral hypoglycemic drugs; Z79.4 Long term (current) use of insulin; Z95.1 Presence of aortocoronary bypass graft; Z86.73 Personal history of transient ischemic attack (TIA), and cerebral infarction without residual deficits
CPT/HCPCS: G0463

== ENCOUNTER 2019-12-10 11:30 | Day surgery (SDC) | payer MEDICARE, MEDICAID ==
[2019-12-10] MEDS ORDERED: LIDOcaine 2% 5ml jelly ONE (11:39)
== END 2019-12-10 13:20 | disposition home or self-care (01) ==
LOC: WOUND CARE 11:30
PROVIDERS: ATTEND Nurse Practitioner
DX: E11.622 Type 2 diabetes mellitus with other skin ulcer (principal); I70.248 Atherosclerosis of native arteries of left leg with ulceration of other part of lower leg; I83.228 Varicose veins of left lower extremity with both ulcer of other part of lower extremity and inflammation; L97.824 Non-pressure chronic ulcer of other part of left lower leg with necrosis of bone; I70.242 Atherosclerosis of native arteries of left leg with ulceration of calf; I83.022 Varicose veins of left lower extremity with ulcer of calf; L97.221 Non-pressure chronic ulcer of left calf limited to breakdown of skin; I83.023 Varicose veins of left lower extremity with ulcer of ankle; L97.322 Non-pressure chronic ulcer of left ankle with fat layer exposed; E11.621 Type 2 diabetes mellitus with foot ulcer; I83.025 Varicose veins of left lower extremity with ulcer other part of foot; L97.522 Non-pressure chronic ulcer of other part of left foot with fat layer exposed; I25.10 Atherosclerotic heart disease of native coronary artery without angina pectoris; J44.9 Chronic obstructive pulmonary disease, unspecified; I10 Essential (primary) hypertension; E11.69 Type 2 diabetes mellitus with other specified complication; M86.672 Other chronic osteomyelitis, left ankle and foot; E78.00 Pure hypercholesterolemia, unspecified; I77.1 Stricture of artery; F32.9 Major depressive disorder, single episode, unspecified; F17.210 Nicotine dependence, cigarettes, uncomplicated; F11.90 Opioid use, unspecified, uncomplicated; F10.10 Alcohol abuse, uncomplicated; F03.90 Unspecified dementia, unspecified severity, without behavioral disturbance, psychotic disturbance, mood disturbance, and anxiety; F41.9 Anxiety disorder, unspecified; Z79.2 Long term (current) use of antibiotics; Z79.899 Other long term (current) drug therapy; Z87.442 Personal history of urinary calculi; Z79.84 Long term (current) use of oral hypoglycemic drugs; Z79.4 Long term (current) use of insulin; Z95.1 Presence of aortocoronary bypass graft; Z86.73 Personal history of transient ischemic attack (TIA), and cerebral infarction without residual deficits
CPT/HCPCS: 73590; 73700; 87070; 87075; 87076; 87077; 87102; 87186; 97597

== ENCOUNTER 2019-12-19 11:24 | Day surgery (SDC) | payer MEDICARE, MEDICAID ==
[2019-12-19] MEDS ORDERED: LIDOcaine 2% 5ml jelly ONE (11:34)
[2019-12-19] MEDS ORDERED: gentamicin 0.1% topical ointment 15gm TP ONE (12:09)
== END 2019-12-19 12:20 | disposition home or self-care (01) ==
LOC: WOUND CARE 11:24
PROVIDERS: ATTEND Nurse Practitioner
DX: E11.622 Type 2 diabetes mellitus with other skin ulcer (principal); I70.248 Atherosclerosis of native arteries of left leg with ulceration of other part of lower leg; I83.228 Varicose veins of left lower extremity with both ulcer of other part of lower extremity and inflammation; L97.824 Non-pressure chronic ulcer of other part of left lower leg with necrosis of bone; I70.242 Atherosclerosis of native arteries of left leg with ulceration of calf; I83.022 Varicose veins of left lower extremity with ulcer of calf; L97.221 Non-pressure chronic ulcer of left calf limited to breakdown of skin; I83.023 Varicose veins of left lower extremity with ulcer of ankle; L97.322 Non-pressure chronic ulcer of left ankle with fat layer exposed; E11.621 Type 2 diabetes mellitus with foot ulcer; I83.025 Varicose veins of left lower extremity with ulcer other part of foot; L97.522 Non-pressure chronic ulcer of other part of left foot with fat layer exposed; I25.10 Atherosclerotic heart disease of native coronary artery without angina pectoris; J44.9 Chronic obstructive pulmonary disease, unspecified; I10 Essential (primary) hypertension; E11.69 Type 2 diabetes mellitus with other specified complication; M86.672 Other chronic osteomyelitis, left ankle and foot; E78.00 Pure hypercholesterolemia, unspecified; I77.1 Stricture of artery; F32.9 Major depressive disorder, single episode, unspecified; F17.210 Nicotine dependence, cigarettes, uncomplicated; F11.90 Opioid use, unspecified, uncomplicated; F10.10 Alcohol abuse, uncomplicated; F03.90 Unspecified dementia, unspecified severity, without behavioral disturbance, psychotic disturbance, mood disturbance, and anxiety; F41.9 Anxiety disorder, unspecified; Z79.2 Long term (current) use of antibiotics; Z79.899 Other long term (current) drug therapy; Z87.442 Personal history of urinary calculi; Z79.84 Long term (current) use of oral hypoglycemic drugs; Z79.4 Long term (current) use of insulin; Z95.1 Presence of aortocoronary bypass graft; Z86.73 Personal history of transient ischemic attack (TIA), and cerebral infarction without residual deficits
CPT/HCPCS: 97597

== ENCOUNTER 2019-12-24 11:25 | Day surgery (SDC) | payer MEDICARE, MEDICAID ==
[2019-12-24] MEDS ORDERED: LIDOcaine 2% 5ml jelly ONE (11:47)
== END 2019-12-24 13:19 | disposition home or self-care (01) ==
LOC: WOUND CARE 11:25
PROVIDERS: ATTEND Nurse Practitioner
DX: E11.622 Type 2 diabetes mellitus with other skin ulcer (principal); I70.248 Atherosclerosis of native arteries of left leg with ulceration of other part of lower leg; I83.228 Varicose veins of left lower extremity with both ulcer of other part of lower extremity and inflammation; L97.824 Non-pressure chronic ulcer of other part of left lower leg with necrosis of bone; I70.242 Atherosclerosis of native arteries of left leg with ulceration of calf; I83.022 Varicose veins of left lower extremity with ulcer of calf; L97.221 Non-pressure chronic ulcer of left calf limited to breakdown of skin; I83.023 Varicose veins of left lower extremity with ulcer of ankle; L97.322 Non-pressure chronic ulcer of left ankle with fat layer exposed; E11.621 Type 2 diabetes mellitus with foot ulcer; I83.025 Varicose veins of left lower extremity with ulcer other part of foot; L97.522 Non-pressure chronic ulcer of other part of left foot with fat layer exposed; I25.10 Atherosclerotic heart disease of native coronary artery without angina pectoris; J44.9 Chronic obstructive pulmonary disease, unspecified; I10 Essential (primary) hypertension; E11.69 Type 2 diabetes mellitus with other specified complication; M86.672 Other chronic osteomyelitis, left ankle and foot; E78.00 Pure hypercholesterolemia, unspecified; I77.1 Stricture of artery; F32.9 Major depressive disorder, single episode, unspecified; F17.210 Nicotine dependence, cigarettes, uncomplicated; F11.90 Opioid use, unspecified, uncomplicated; F10.10 Alcohol abuse, uncomplicated; F03.90 Unspecified dementia, unspecified severity, without behavioral disturbance, psychotic disturbance, mood disturbance, and anxiety; F41.9 Anxiety disorder, unspecified; Z79.2 Long term (current) use of antibiotics; Z79.899 Other long term (current) drug therapy; Z87.442 Personal history of urinary calculi; Z79.84 Long term (current) use of oral hypoglycemic drugs; Z79.4 Long term (current) use of insulin; Z95.1 Presence of aortocoronary bypass graft; Z86.73 Personal history of transient ischemic attack (TIA), and cerebral infarction without residual deficits
CPT/HCPCS: G0463

== ENCOUNTER 2019-12-31 11:55 | Day surgery (SDC) | payer MEDICARE, MEDICAID ==
[2019-12-31] MEDS ORDERED: LIDOcaine 2% 5ml jelly ONE (12:01)
== END 2019-12-31 13:21 | disposition home or self-care (01) ==
LOC: WOUND CARE 11:55
PROVIDERS: ATTEND Nurse Practitioner
DX: E11.622 Type 2 diabetes mellitus with other skin ulcer (principal); I70.248 Atherosclerosis of native arteries of left leg with ulceration of other part of lower leg; I83.228 Varicose veins of left lower extremity with both ulcer of other part of lower extremity and inflammation; L97.824 Non-pressure chronic ulcer of other part of left lower leg with necrosis of bone; I70.242 Atherosclerosis of native arteries of left leg with ulceration of calf; I83.022 Varicose veins of left lower extremity with ulcer of calf; L97.221 Non-pressure chronic ulcer of left calf limited to breakdown of skin; I83.023 Varicose veins of left lower extremity with ulcer of ankle; L97.322 Non-pressure chronic ulcer of left ankle with fat layer exposed; E11.621 Type 2 diabetes mellitus with foot ulcer; I83.025 Varicose veins of left lower extremity with ulcer other part of foot; L97.522 Non-pressure chronic ulcer of other part of left foot with fat layer exposed; I25.10 Atherosclerotic heart disease of native coronary artery without angina pectoris; J44.9 Chronic obstructive pulmonary disease, unspecified; I10 Essential (primary) hypertension; E11.69 Type 2 diabetes mellitus with other specified complication; M86.672 Other chronic osteomyelitis, left ankle and foot; E78.00 Pure hypercholesterolemia, unspecified; I77.1 Stricture of artery; F32.9 Major depressive disorder, single episode, unspecified; F17.210 Nicotine dependence, cigarettes, uncomplicated; F11.90 Opioid use, unspecified, uncomplicated; F10.10 Alcohol abuse, uncomplicated; F03.90 Unspecified dementia, unspecified severity, without behavioral disturbance, psychotic disturbance, mood disturbance, and anxiety; F41.9 Anxiety disorder, unspecified; Z79.2 Long term (current) use of antibiotics; Z79.899 Other long term (current) drug therapy; Z87.442 Personal history of urinary calculi; Z79.84 Long term (current) use of oral hypoglycemic drugs; Z79.4 Long term (current) use of insulin; Z95.1 Presence of aortocoronary bypass graft; Z86.73 Personal history of transient ischemic attack (TIA), and cerebral infarction without residual deficits
CPT/HCPCS: 97597

== ENCOUNTER 2020-01-09 11:45 | Day surgery (SDC) | payer MEDICARE, MEDICAID ==
[~2020-01-09 11:45] MED LIST changes: +LIDOcaine 2% 5ml jelly ONE
== END 2020-01-09 12:14 | disposition home or self-care (01) ==
LOC: WOUND CARE 11:45
PROVIDERS: ATTEND Nurse Practitioner
DX: E11.622 Type 2 diabetes mellitus with other skin ulcer (principal); I70.248 Atherosclerosis of native arteries of left leg with ulceration of other part of lower leg; I83.228 Varicose veins of left lower extremity with both ulcer of other part of lower extremity and inflammation; L97.824 Non-pressure chronic ulcer of other part of left lower leg with necrosis of bone; I70.242 Atherosclerosis of native arteries of left leg with ulceration of calf; I83.022 Varicose veins of left lower extremity with ulcer of calf; L97.221 Non-pressure chronic ulcer of left calf limited to breakdown of skin; I83.023 Varicose veins of left lower extremity with ulcer of ankle; L97.322 Non-pressure chronic ulcer of left ankle with fat layer exposed; E11.621 Type 2 diabetes mellitus with foot ulcer; I83.025 Varicose veins of left lower extremity with ulcer other part of foot; L97.522 Non-pressure chronic ulcer of other part of left foot with fat layer exposed; I25.10 Atherosclerotic heart disease of native coronary artery without angina pectoris; J44.9 Chronic obstructive pulmonary disease, unspecified; I10 Essential (primary) hypertension; E11.69 Type 2 diabetes mellitus with other specified complication; M86.672 Other chronic osteomyelitis, left ankle and foot; E78.00 Pure hypercholesterolemia, unspecified; I77.1 Stricture of artery; F32.9 Major depressive disorder, single episode, unspecified; F17.210 Nicotine dependence, cigarettes, uncomplicated; F11.90 Opioid use, unspecified, uncomplicated; F10.10 Alcohol abuse, uncomplicated; F03.90 Unspecified dementia, unspecified severity, without behavioral disturbance, psychotic disturbance, mood disturbance, and anxiety; F41.9 Anxiety disorder, unspecified; Z79.2 Long term (current) use of antibiotics; Z79.899 Other long term (current) drug therapy; Z87.442 Personal history of urinary calculi; Z79.84 Long term (current) use of oral hypoglycemic drugs; Z79.4 Long term (current) use of insulin; Z95.1 Presence of aortocoronary bypass graft; Z86.73 Personal history of transient ischemic attack (TIA), and cerebral infarction without residual deficits
CPT/HCPCS: 97597

== ENCOUNTER 2020-01-16 11:57 | Day surgery (SDC) | payer MEDICARE, MEDICAID ==
[~2020-01-16 11:57] MED LIST changes: -LIDOcaine 2% 5ml jelly ONE
[2020-01-16] MEDS ORDERED: LIDOcaine 2% 5ml jelly ONE (12:08)
== END 2020-01-16 12:45 | disposition home or self-care (01) ==
LOC: WOUND CARE 11:57
PROVIDERS: ATTEND Nurse Practitioner
DX: E11.622 Type 2 diabetes mellitus with other skin ulcer (principal); I70.248 Atherosclerosis of native arteries of left leg with ulceration of other part of lower leg; I83.228 Varicose veins of left lower extremity with both ulcer of other part of lower extremity and inflammation; L97.824 Non-pressure chronic ulcer of other part of left lower leg with necrosis of bone; I70.242 Atherosclerosis of native arteries of left leg with ulceration of calf; I83.022 Varicose veins of left lower extremity with ulcer of calf; L97.221 Non-pressure chronic ulcer of left calf limited to breakdown of skin; I83.023 Varicose veins of left lower extremity with ulcer of ankle; L97.322 Non-pressure chronic ulcer of left ankle with fat layer exposed; E11.621 Type 2 diabetes mellitus with foot ulcer; I83.025 Varicose veins of left lower extremity with ulcer other part of foot; L97.522 Non-pressure chronic ulcer of other part of left foot with fat layer exposed; I25.10 Atherosclerotic heart disease of native coronary artery without angina pectoris; J44.9 Chronic obstructive pulmonary disease, unspecified; I10 Essential (primary) hypertension; E11.69 Type 2 diabetes mellitus with other specified complication; M86.672 Other chronic osteomyelitis, left ankle and foot; E78.00 Pure hypercholesterolemia, unspecified; I77.1 Stricture of artery; F32.9 Major depressive disorder, single episode, unspecified; F17.210 Nicotine dependence, cigarettes, uncomplicated; F11.90 Opioid use, unspecified, uncomplicated; F10.10 Alcohol abuse, uncomplicated; F03.90 Unspecified dementia, unspecified severity, without behavioral disturbance, psychotic disturbance, mood disturbance, and anxiety; F41.9 Anxiety disorder, unspecified; Z79.2 Long term (current) use of antibiotics; Z79.899 Other long term (current) drug therapy; Z87.442 Personal history of urinary calculi; Z79.84 Long term (current) use of oral hypoglycemic drugs; Z79.4 Long term (current) use of insulin; Z95.1 Presence of aortocoronary bypass graft; Z86.73 Personal history of transient ischemic attack (TIA), and cerebral infarction without residual deficits
CPT/HCPCS: 97597

== ENCOUNTER 2020-01-23 10:50 | Day surgery (SDC) | payer MEDICARE, MEDICAID | END 2020-01-23 12:55 | disposition home or self-care (01) | LOC: WOUND CARE 10:50 | PROVIDERS: ATTEND Nurse Practitioner | DX: E11.622 Type 2 diabetes mellitus with other skin ulcer (principal); I70.248 Atherosclerosis of native arteries of left leg with ulceration of other part of lower leg; I83.228 Varicose veins of left lower extremity with both ulcer of other part of lower extremity and inflammation; L97.824 Non-pressure chronic ulcer of other part of left lower leg with necrosis of bone; I70.242 Atherosclerosis of native arteries of left leg with ulceration of calf; I83.022 Varicose veins of left lower extremity with ulcer of calf; L97.221 Non-pressure chronic ulcer of left calf limited to breakdown of skin; I25.10 Atherosclerotic heart disease of native coronary artery without angina pectoris; J44.9 Chronic obstructive pulmonary disease, unspecified; I10 Essential (primary) hypertension; E11.69 Type 2 diabetes mellitus with other specified complication; M86.672 Other chronic osteomyelitis, left ankle and foot; E78.00 Pure hypercholesterolemia, unspecified; I77.1 Stricture of artery; F32.9 Major depressive disorder, single episode, unspecified; F17.210 Nicotine dependence, cigarettes, uncomplicated; F11.90 Opioid use, unspecified, uncomplicated; F10.10 Alcohol abuse, uncomplicated; F03.90 Unspecified dementia, unspecified severity, without behavioral disturbance, psychotic disturbance, mood disturbance, and anxiety; F41.9 Anxiety disorder, unspecified; Z79.2 Long term (current) use of antibiotics; Z79.899 Other long term (current) drug therapy; Z87.442 Personal history of urinary calculi; Z79.84 Long term (current) use of oral hypoglycemic drugs; Z79.4 Long term (current) use of insulin; Z95.1 Presence of aortocoronary bypass graft; Z86.73 Personal history of transient ischemic attack (TIA), and cerebral infarction without residual deficits | CPT/HCPCS: 97597 ==

== ENCOUNTER 2020-01-30 11:11 | Day surgery (SDC) | payer MEDICARE, MEDICAID ==
[2020-01-30] MEDS ORDERED: LIDOcaine 2% 5ml jelly ONE (11:32)
== END 2020-01-30 12:35 | disposition home or self-care (01) ==
LOC: WOUND CARE 11:11
PROVIDERS: ATTEND Nurse Practitioner
DX: E11.622 Type 2 diabetes mellitus with other skin ulcer (principal); I70.248 Atherosclerosis of native arteries of left leg with ulceration of other part of lower leg; I83.228 Varicose veins of left lower extremity with both ulcer of other part of lower extremity and inflammation; L97.824 Non-pressure chronic ulcer of other part of left lower leg with necrosis of bone; I70.242 Atherosclerosis of native arteries of left leg with ulceration of calf; I83.022 Varicose veins of left lower extremity with ulcer of calf; L97.221 Non-pressure chronic ulcer of left calf limited to breakdown of skin; I25.10 Atherosclerotic heart disease of native coronary artery without angina pectoris; J44.9 Chronic obstructive pulmonary disease, unspecified; I10 Essential (primary) hypertension; E11.69 Type 2 diabetes mellitus with other specified complication; M86.672 Other chronic osteomyelitis, left ankle and foot; E78.00 Pure hypercholesterolemia, unspecified; I77.1 Stricture of artery; F32.9 Major depressive disorder, single episode, unspecified; F17.210 Nicotine dependence, cigarettes, uncomplicated; F11.90 Opioid use, unspecified, uncomplicated; F10.10 Alcohol abuse, uncomplicated; F03.90 Unspecified dementia, unspecified severity, without behavioral disturbance, psychotic disturbance, mood disturbance, and anxiety; F41.9 Anxiety disorder, unspecified; Z79.2 Long term (current) use of antibiotics; Z79.899 Other long term (current) drug therapy; Z79.84 Long term (current) use of oral hypoglycemic drugs; Z87.442 Personal history of urinary calculi; Z79.4 Long term (current) use of insulin; Z95.1 Presence of aortocoronary bypass graft; Z86.73 Personal history of transient ischemic attack (TIA), and cerebral infarction without residual deficits
CPT/HCPCS: 97597

== ENCOUNTER 2020-02-06 10:45 | Day surgery (SDC) | payer MEDICARE, MEDICAID ==
[2020-02-06] MEDS ORDERED: LIDOcaine 2% 5ml jelly ONE (11:00)
== END 2020-02-06 11:32 | disposition home or self-care (01) ==
LOC: WOUND CARE 10:45
PROVIDERS: ATTEND Nurse Practitioner
DX: E11.622 Type 2 diabetes mellitus with other skin ulcer (principal); I70.248 Atherosclerosis of native arteries of left leg with ulceration of other part of lower leg; I83.228 Varicose veins of left lower extremity with both ulcer of other part of lower extremity and inflammation; L97.824 Non-pressure chronic ulcer of other part of left lower leg with necrosis of bone; I70.242 Atherosclerosis of native arteries of left leg with ulceration of calf; I83.022 Varicose veins of left lower extremity with ulcer of calf; L97.221 Non-pressure chronic ulcer of left calf limited to breakdown of skin; I25.10 Atherosclerotic heart disease of native coronary artery without angina pectoris; J44.9 Chronic obstructive pulmonary disease, unspecified; I10 Essential (primary) hypertension; E11.69 Type 2 diabetes mellitus with other specified complication; M86.672 Other chronic osteomyelitis, left ankle and foot; E78.00 Pure hypercholesterolemia, unspecified; I77.1 Stricture of artery; F32.9 Major depressive disorder, single episode, unspecified; F17.210 Nicotine dependence, cigarettes, uncomplicated; F11.90 Opioid use, unspecified, uncomplicated; F10.10 Alcohol abuse, uncomplicated; F03.90 Unspecified dementia, unspecified severity, without behavioral disturbance, psychotic disturbance, mood disturbance, and anxiety; F41.9 Anxiety disorder, unspecified; Z79.2 Long term (current) use of antibiotics; Z79.899 Other long term (current) drug therapy; Z79.84 Long term (current) use of oral hypoglycemic drugs; Z87.442 Personal history of urinary calculi; Z79.4 Long term (current) use of insulin; Z95.1 Presence of aortocoronary bypass graft; Z86.73 Personal history of transient ischemic attack (TIA), and cerebral infarction without residual deficits
CPT/HCPCS: 97597

== ENCOUNTER 2020-02-13 10:20 | Day surgery (SDC) | payer MEDICARE, MEDICAID | END 2020-02-13 11:45 | disposition home or self-care (01) | LOC: WOUND CARE 10:20 | PROVIDERS: ATTEND Nurse Practitioner | DX: E11.622 Type 2 diabetes mellitus with other skin ulcer (principal); I70.248 Atherosclerosis of native arteries of left leg with ulceration of other part of lower leg; I83.228 Varicose veins of left lower extremity with both ulcer of other part of lower extremity and inflammation; L97.822 Non-pressure chronic ulcer of other part of left lower leg with fat layer exposed; I25.10 Atherosclerotic heart disease of native coronary artery without angina pectoris; J44.9 Chronic obstructive pulmonary disease, unspecified; I10 Essential (primary) hypertension; E11.69 Type 2 diabetes mellitus with other specified complication; M86.672 Other chronic osteomyelitis, left ankle and foot; E78.00 Pure hypercholesterolemia, unspecified; I77.1 Stricture of artery; F32.9 Major depressive disorder, single episode, unspecified; F17.210 Nicotine dependence, cigarettes, uncomplicated; F11.90 Opioid use, unspecified, uncomplicated; F10.10 Alcohol abuse, uncomplicated; F03.90 Unspecified dementia, unspecified severity, without behavioral disturbance, psychotic disturbance, mood disturbance, and anxiety; F41.9 Anxiety disorder, unspecified; Z79.2 Long term (current) use of antibiotics; Z79.899 Other long term (current) drug therapy; Z79.84 Long term (current) use of oral hypoglycemic drugs; Z87.442 Personal history of urinary calculi; Z79.4 Long term (current) use of insulin; Z95.1 Presence of aortocoronary bypass graft; Z86.73 Personal history of transient ischemic attack (TIA), and cerebral infarction without residual deficits | CPT/HCPCS: 97597 ==

== ENCOUNTER 2020-02-20 10:50 | Day surgery (SDC) | payer MEDICARE, MEDICAID ==
[2020-02-20] MEDS ORDERED: LIDOcaine 2% 5ml jelly ONE (11:10)
[2020-02-20] MEDS ORDERED: hydrocortisone 1% cream 28gm TP ONE (11:43)
== END 2020-02-27 11:24 | disposition home or self-care (01) ==
LOC: WOUND CARE 10:50
PROVIDERS: ATTEND Nurse Practitioner
DX: E11.622 Type 2 diabetes mellitus with other skin ulcer (principal); I70.248 Atherosclerosis of native arteries of left leg with ulceration of other part of lower leg; I83.228 Varicose veins of left lower extremity with both ulcer of other part of lower extremity and inflammation; L97.826 Non-pressure chronic ulcer of other part of left lower leg with bone involvement without evidence of necrosis; E11.621 Type 2 diabetes mellitus with foot ulcer; I70.245 Atherosclerosis of native arteries of left leg with ulceration of other part of foot; I83.025 Varicose veins of left lower extremity with ulcer other part of foot; L97.521 Non-pressure chronic ulcer of other part of left foot limited to breakdown of skin; L84 Corns and callosities; I25.10 Atherosclerotic heart disease of native coronary artery without angina pectoris; I10 Essential (primary) hypertension; E11.69 Type 2 diabetes mellitus with other specified complication; M86.672 Other chronic osteomyelitis, left ankle and foot; E78.00 Pure hypercholesterolemia, unspecified; J44.9 Chronic obstructive pulmonary disease, unspecified; I77.1 Stricture of artery; F32.9 Major depressive disorder, single episode, unspecified; F17.210 Nicotine dependence, cigarettes, uncomplicated; F11.90 Opioid use, unspecified, uncomplicated; F10.10 Alcohol abuse, uncomplicated; F03.90 Unspecified dementia, unspecified severity, without behavioral disturbance, psychotic disturbance, mood disturbance, and anxiety; F41.9 Anxiety disorder, unspecified; Z79.2 Long term (current) use of antibiotics; Z79.899 Other long term (current) drug therapy; Z79.84 Long term (current) use of oral hypoglycemic drugs; Z87.442 Personal history of urinary calculi; Z79.4 Long term (current) use of insulin; Z95.1 Presence of aortocoronary bypass graft; Z86.73 Personal history of transient ischemic attack (TIA), and cerebral infarction without residual deficits; Z88.0 Allergy status to penicillin
CPT/HCPCS: 97597

== ENCOUNTER 2020-02-27 11:10 | Day surgery (SDC) | payer MEDICARE, MEDICAID ==
[2020-02-27] MEDS ORDERED: LIDOcaine 2% 5ml jelly ONE ×2 (11:21→11:51)
[2020-02-27] MEDS ORDERED: hydrocortisone 1% cream 28gm TP ONE (11:54)
== END 2020-02-27 12:12 | disposition home or self-care (01) ==
LOC: WOUND CARE 11:10
PROVIDERS: ATTEND Nurse Practitioner
DX: E11.622 Type 2 diabetes mellitus with other skin ulcer (principal); I70.248 Atherosclerosis of native arteries of left leg with ulceration of other part of lower leg; I83.228 Varicose veins of left lower extremity with both ulcer of other part of lower extremity and inflammation; L97.826 Non-pressure chronic ulcer of other part of left lower leg with bone involvement without evidence of necrosis; E11.621 Type 2 diabetes mellitus with foot ulcer; I70.245 Atherosclerosis of native arteries of left leg with ulceration of other part of foot; I83.025 Varicose veins of left lower extremity with ulcer other part of foot; L97.521 Non-pressure chronic ulcer of other part of left foot limited to breakdown of skin; L84 Corns and callosities; I25.10 Atherosclerotic heart disease of native coronary artery without angina pectoris; I10 Essential (primary) hypertension; E11.69 Type 2 diabetes mellitus with other specified complication; M86.672 Other chronic osteomyelitis, left ankle and foot; E78.00 Pure hypercholesterolemia, unspecified; J44.9 Chronic obstructive pulmonary disease, unspecified; I77.1 Stricture of artery; F32.9 Major depressive disorder, single episode, unspecified; F17.210 Nicotine dependence, cigarettes, uncomplicated; F11.90 Opioid use, unspecified, uncomplicated; F10.10 Alcohol abuse, uncomplicated; F03.90 Unspecified dementia, unspecified severity, without behavioral disturbance, psychotic disturbance, mood disturbance, and anxiety; F41.9 Anxiety disorder, unspecified; Z79.2 Long term (current) use of antibiotics; Z79.899 Other long term (current) drug therapy; Z79.84 Long term (current) use of oral hypoglycemic drugs; Z87.442 Personal history of urinary calculi; Z79.4 Long term (current) use of insulin; Z95.1 Presence of aortocoronary bypass graft; Z86.73 Personal history of transient ischemic attack (TIA), and cerebral infarction without residual deficits; Z88.0 Allergy status to penicillin
CPT/HCPCS: 97597

== ENCOUNTER 2020-03-04 11:05 | Day surgery (SDC) | payer MEDICARE, MEDICAID ==
[2020-03-04] MEDS ORDERED: LIDOcaine 2% 5ml jelly ONE (11:36)
[2020-03-04] MEDS ORDERED: hydrocortisone 1% cream 28gm TP ONE (12:07)
== END 2020-03-04 12:30 | disposition home or self-care (01) ==
LOC: WOUND CARE 11:05
PROVIDERS: ATTEND Nurse Practitioner
DX: E11.622 Type 2 diabetes mellitus with other skin ulcer (principal); I70.248 Atherosclerosis of native arteries of left leg with ulceration of other part of lower leg; I83.228 Varicose veins of left lower extremity with both ulcer of other part of lower extremity and inflammation; L97.826 Non-pressure chronic ulcer of other part of left lower leg with bone involvement without evidence of necrosis; E11.621 Type 2 diabetes mellitus with foot ulcer; I70.245 Atherosclerosis of native arteries of left leg with ulceration of other part of foot; I83.025 Varicose veins of left lower extremity with ulcer other part of foot; L97.521 Non-pressure chronic ulcer of other part of left foot limited to breakdown of skin; L84 Corns and callosities; I25.10 Atherosclerotic heart disease of native coronary artery without angina pectoris; I10 Essential (primary) hypertension; E11.69 Type 2 diabetes mellitus with other specified complication; M86.672 Other chronic osteomyelitis, left ankle and foot; E78.00 Pure hypercholesterolemia, unspecified; J44.9 Chronic obstructive pulmonary disease, unspecified; I77.1 Stricture of artery; F32.9 Major depressive disorder, single episode, unspecified; F17.210 Nicotine dependence, cigarettes, uncomplicated; F11.90 Opioid use, unspecified, uncomplicated; F10.10 Alcohol abuse, uncomplicated; F03.90 Unspecified dementia, unspecified severity, without behavioral disturbance, psychotic disturbance, mood disturbance, and anxiety; F41.9 Anxiety disorder, unspecified; Z79.2 Long term (current) use of antibiotics; Z79.899 Other long term (current) drug therapy; Z79.84 Long term (current) use of oral hypoglycemic drugs; Z87.442 Personal history of urinary calculi; Z79.4 Long term (current) use of insulin; Z95.1 Presence of aortocoronary bypass graft; Z86.73 Personal history of transient ischemic attack (TIA), and cerebral infarction without residual deficits
CPT/HCPCS: 97597

== ENCOUNTER 2020-03-12 10:54 | Day surgery (SDC) | payer MEDICARE, MEDICAID | END 2020-03-12 12:22 | disposition home or self-care (01) | LOC: WOUND CARE 10:54 | PROVIDERS: ATTEND Nurse Practitioner | DX: E11.622 Type 2 diabetes mellitus with other skin ulcer (principal); I70.248 Atherosclerosis of native arteries of left leg with ulceration of other part of lower leg; I83.228 Varicose veins of left lower extremity with both ulcer of other part of lower extremity and inflammation; L97.826 Non-pressure chronic ulcer of other part of left lower leg with bone involvement without evidence of necrosis; E11.621 Type 2 diabetes mellitus with foot ulcer; I70.245 Atherosclerosis of native arteries of left leg with ulceration of other part of foot; I83.025 Varicose veins of left lower extremity with ulcer other part of foot; L97.521 Non-pressure chronic ulcer of other part of left foot limited to breakdown of skin; L84 Corns and callosities; I25.10 Atherosclerotic heart disease of native coronary artery without angina pectoris; I10 Essential (primary) hypertension; E11.69 Type 2 diabetes mellitus with other specified complication; M86.672 Other chronic osteomyelitis, left ankle and foot; E78.00 Pure hypercholesterolemia, unspecified; J44.9 Chronic obstructive pulmonary disease, unspecified; I77.1 Stricture of artery; F32.9 Major depressive disorder, single episode, unspecified; F17.210 Nicotine dependence, cigarettes, uncomplicated; F11.90 Opioid use, unspecified, uncomplicated; F10.10 Alcohol abuse, uncomplicated; F03.90 Unspecified dementia, unspecified severity, without behavioral disturbance, psychotic disturbance, mood disturbance, and anxiety; F41.9 Anxiety disorder, unspecified; Z79.2 Long term (current) use of antibiotics; Z79.899 Other long term (current) drug therapy; Z79.84 Long term (current) use of oral hypoglycemic drugs; Z87.442 Personal history of urinary calculi; Z79.4 Long term (current) use of insulin; Z95.1 Presence of aortocoronary bypass graft; Z86.73 Personal history of transient ischemic attack (TIA), and cerebral infarction without residual deficits | CPT/HCPCS: 97597 ==

== ENCOUNTER 2020-03-19 11:01 | Day surgery (SDC) | payer MEDICARE, MEDICAID ==
[2020-03-19] MEDS ORDERED: LIDOcaine 2% 5ml jelly ONE (11:29)
== END 2020-03-19 11:48 | disposition home or self-care (01) ==
LOC: WOUND CARE 11:01
PROVIDERS: ATTEND Nurse Practitioner
DX: E11.622 Type 2 diabetes mellitus with other skin ulcer (principal); I70.248 Atherosclerosis of native arteries of left leg with ulceration of other part of lower leg; I83.228 Varicose veins of left lower extremity with both ulcer of other part of lower extremity and inflammation; L97.826 Non-pressure chronic ulcer of other part of left lower leg with bone involvement without evidence of necrosis; E11.621 Type 2 diabetes mellitus with foot ulcer; I70.245 Atherosclerosis of native arteries of left leg with ulceration of other part of foot; I83.025 Varicose veins of left lower extremity with ulcer other part of foot; L97.521 Non-pressure chronic ulcer of other part of left foot limited to breakdown of skin; L84 Corns and callosities; I25.10 Atherosclerotic heart disease of native coronary artery without angina pectoris; I10 Essential (primary) hypertension; E11.69 Type 2 diabetes mellitus with other specified complication; M86.672 Other chronic osteomyelitis, left ankle and foot; E78.00 Pure hypercholesterolemia, unspecified; J44.9 Chronic obstructive pulmonary disease, unspecified; I77.1 Stricture of artery; F32.9 Major depressive disorder, single episode, unspecified; F17.210 Nicotine dependence, cigarettes, uncomplicated; F11.90 Opioid use, unspecified, uncomplicated; F10.10 Alcohol abuse, uncomplicated; F03.90 Unspecified dementia, unspecified severity, without behavioral disturbance, psychotic disturbance, mood disturbance, and anxiety; F41.9 Anxiety disorder, unspecified; Z79.2 Long term (current) use of antibiotics; Z79.899 Other long term (current) drug therapy; Z79.84 Long term (current) use of oral hypoglycemic drugs; Z87.442 Personal history of urinary calculi; Z79.4 Long term (current) use of insulin; Z95.1 Presence of aortocoronary bypass graft; Z86.73 Personal history of transient ischemic attack (TIA), and cerebral infarction without residual deficits
CPT/HCPCS: 97597

== ENCOUNTER 2020-03-26 11:11 | Day surgery (SDC) | payer MEDICARE, MEDICAID | END 2020-03-26 12:31 | disposition home or self-care (01) | LOC: WOUND CARE 11:11 | PROVIDERS: ATTEND Nurse Practitioner | DX: E11.622 Type 2 diabetes mellitus with other skin ulcer (principal); I70.248 Atherosclerosis of native arteries of left leg with ulceration of other part of lower leg; I83.228 Varicose veins of left lower extremity with both ulcer of other part of lower extremity and inflammation; L97.826 Non-pressure chronic ulcer of other part of left lower leg with bone involvement without evidence of necrosis; E11.621 Type 2 diabetes mellitus with foot ulcer; I70.245 Atherosclerosis of native arteries of left leg with ulceration of other part of foot; I83.025 Varicose veins of left lower extremity with ulcer other part of foot; L97.521 Non-pressure chronic ulcer of other part of left foot limited to breakdown of skin; L84 Corns and callosities; I25.10 Atherosclerotic heart disease of native coronary artery without angina pectoris; I10 Essential (primary) hypertension; E11.69 Type 2 diabetes mellitus with other specified complication; M86.672 Other chronic osteomyelitis, left ankle and foot; E78.00 Pure hypercholesterolemia, unspecified; J44.9 Chronic obstructive pulmonary disease, unspecified; I77.1 Stricture of artery; F32.9 Major depressive disorder, single episode, unspecified; F17.210 Nicotine dependence, cigarettes, uncomplicated; F11.90 Opioid use, unspecified, uncomplicated; F10.10 Alcohol abuse, uncomplicated; F03.90 Unspecified dementia, unspecified severity, without behavioral disturbance, psychotic disturbance, mood disturbance, and anxiety; F41.9 Anxiety disorder, unspecified; Z79.2 Long term (current) use of antibiotics; Z79.899 Other long term (current) drug therapy; Z79.84 Long term (current) use of oral hypoglycemic drugs; Z87.442 Personal history of urinary calculi; Z79.4 Long term (current) use of insulin; Z95.1 Presence of aortocoronary bypass graft; Z86.73 Personal history of transient ischemic attack (TIA), and cerebral infarction without residual deficits | CPT/HCPCS: 97597 ==

== ENCOUNTER 2020-04-02 11:05 | Day surgery (SDC) | payer MEDICARE, MEDICAID ==
[2020-04-02] MEDS ORDERED: LIDOcaine 2% 5ml jelly ONE (11:54)
== END 2020-04-02 12:10 | disposition home or self-care (01) ==
LOC: WOUND CARE 11:05
PROVIDERS: ATTEND Nurse Practitioner
DX: E11.622 Type 2 diabetes mellitus with other skin ulcer (principal); I70.248 Atherosclerosis of native arteries of left leg with ulceration of other part of lower leg; I83.228 Varicose veins of left lower extremity with both ulcer of other part of lower extremity and inflammation; L97.826 Non-pressure chronic ulcer of other part of left lower leg with bone involvement without evidence of necrosis; E11.621 Type 2 diabetes mellitus with foot ulcer; I70.245 Atherosclerosis of native arteries of left leg with ulceration of other part of foot; I83.025 Varicose veins of left lower extremity with ulcer other part of foot; L97.526 Non-pressure chronic ulcer of other part of left foot with bone involvement without evidence of necrosis; L84 Corns and callosities; I25.10 Atherosclerotic heart disease of native coronary artery without angina pectoris; I10 Essential (primary) hypertension; E11.69 Type 2 diabetes mellitus with other specified complication; M86.672 Other chronic osteomyelitis, left ankle and foot; E78.00 Pure hypercholesterolemia, unspecified; J44.9 Chronic obstructive pulmonary disease, unspecified; I77.1 Stricture of artery; F32.9 Major depressive disorder, single episode, unspecified; F17.210 Nicotine dependence, cigarettes, uncomplicated; F11.90 Opioid use, unspecified, uncomplicated; F10.10 Alcohol abuse, uncomplicated; F03.90 Unspecified dementia, unspecified severity, without behavioral disturbance, psychotic disturbance, mood disturbance, and anxiety; F41.9 Anxiety disorder, unspecified; Z79.2 Long term (current) use of antibiotics; Z79.899 Other long term (current) drug therapy; Z79.84 Long term (current) use of oral hypoglycemic drugs; Z87.442 Personal history of urinary calculi; Z79.4 Long term (current) use of insulin; Z95.1 Presence of aortocoronary bypass graft; Z86.73 Personal history of transient ischemic attack (TIA), and cerebral infarction without residual deficits
CPT/HCPCS: 97597

== ENCOUNTER 2020-04-23 11:04 | Day surgery (SDC) | payer MEDICARE, MEDICAID ==
[~2020-04-23 11:04] MED LIST changes: +LIDOcaine 2% 5ml jelly ONE; -LISI1TAB28 PO; +LISI1TAB51 PO
[2020-04-23] MEDS ORDERED: LIDOcaine 2% 5ml jelly ONE (12:27)
== END 2020-04-23 12:40 | disposition home or self-care (01) ==
LOC: WOUND CARE 11:04
PROVIDERS: ATTEND Nurse Practitioner
DX: E11.622 Type 2 diabetes mellitus with other skin ulcer (principal); I70.248 Atherosclerosis of native arteries of left leg with ulceration of other part of lower leg; I83.228 Varicose veins of left lower extremity with both ulcer of other part of lower extremity and inflammation; L97.826 Non-pressure chronic ulcer of other part of left lower leg with bone involvement without evidence of necrosis; E11.621 Type 2 diabetes mellitus with foot ulcer; I70.245 Atherosclerosis of native arteries of left leg with ulceration of other part of foot; I83.025 Varicose veins of left lower extremity with ulcer other part of foot; L97.522 Non-pressure chronic ulcer of other part of left foot with fat layer exposed; L84 Corns and callosities; I25.10 Atherosclerotic heart disease of native coronary artery without angina pectoris; I10 Essential (primary) hypertension; E11.69 Type 2 diabetes mellitus with other specified complication; M86.672 Other chronic osteomyelitis, left ankle and foot; E78.00 Pure hypercholesterolemia, unspecified; J44.9 Chronic obstructive pulmonary disease, unspecified; I77.1 Stricture of artery; F32.9 Major depressive disorder, single episode, unspecified; F17.210 Nicotine dependence, cigarettes, uncomplicated; F11.90 Opioid use, unspecified, uncomplicated; F10.10 Alcohol abuse, uncomplicated; F03.90 Unspecified dementia, unspecified severity, without behavioral disturbance, psychotic disturbance, mood disturbance, and anxiety; F41.9 Anxiety disorder, unspecified; Z79.2 Long term (current) use of antibiotics; Z79.899 Other long term (current) drug therapy; Z79.84 Long term (current) use of oral hypoglycemic drugs; Z87.442 Personal history of urinary calculi; Z79.4 Long term (current) use of insulin; Z95.1 Presence of aortocoronary bypass graft; Z86.73 Personal history of transient ischemic attack (TIA), and cerebral infarction without residual deficits
CPT/HCPCS: 97597

== ENCOUNTER 2020-04-30 11:04 | Day surgery (SDC) | payer MEDICARE, MEDICAID ==
[~2020-04-30 11:04] MED LIST changes: -LIDOcaine 2% 5ml jelly ONE
[2020-04-30] MEDS ORDERED: LIDOcaine 2% 5ml jelly ONE (11:44)
== END 2020-04-30 13:20 | disposition home or self-care (01) ==
LOC: WOUND CARE 11:04
PROVIDERS: ATTEND Nurse Practitioner
DX: E11.622 Type 2 diabetes mellitus with other skin ulcer (principal); I70.248 Atherosclerosis of native arteries of left leg with ulceration of other part of lower leg; I83.228 Varicose veins of left lower extremity with both ulcer of other part of lower extremity and inflammation; L97.826 Non-pressure chronic ulcer of other part of left lower leg with bone involvement without evidence of necrosis; E11.621 Type 2 diabetes mellitus with foot ulcer; I70.245 Atherosclerosis of native arteries of left leg with ulceration of other part of foot; I83.025 Varicose veins of left lower extremity with ulcer other part of foot; L97.522 Non-pressure chronic ulcer of other part of left foot with fat layer exposed; L84 Corns and callosities; I25.10 Atherosclerotic heart disease of native coronary artery without angina pectoris; I10 Essential (primary) hypertension; E11.69 Type 2 diabetes mellitus with other specified complication; M86.672 Other chronic osteomyelitis, left ankle and foot; E78.00 Pure hypercholesterolemia, unspecified; J44.9 Chronic obstructive pulmonary disease, unspecified; I77.1 Stricture of artery; F32.9 Major depressive disorder, single episode, unspecified; F17.210 Nicotine dependence, cigarettes, uncomplicated; F11.90 Opioid use, unspecified, uncomplicated; F10.10 Alcohol abuse, uncomplicated; F03.90 Unspecified dementia, unspecified severity, without behavioral disturbance, psychotic disturbance, mood disturbance, and anxiety; F41.9 Anxiety disorder, unspecified; Z79.2 Long term (current) use of antibiotics; Z79.899 Other long term (current) drug therapy; Z79.84 Long term (current) use of oral hypoglycemic drugs; Z87.442 Personal history of urinary calculi; Z79.4 Long term (current) use of insulin; Z95.1 Presence of aortocoronary bypass graft; Z86.73 Personal history of transient ischemic attack (TIA), and cerebral infarction without residual deficits
CPT/HCPCS: 97597

== ENCOUNTER 2020-05-07 11:22 | Day surgery (SDC) | payer MEDICARE, MEDICAID ==
[2020-05-07] MEDS ORDERED: LIDOcaine 2% 5ml jelly ONE (11:57)
== END 2020-05-07 12:57 | disposition home or self-care (01) ==
LOC: WOUND CARE 11:22
PROVIDERS: ATTEND Nurse Practitioner
DX: E11.622 Type 2 diabetes mellitus with other skin ulcer (principal); I70.248 Atherosclerosis of native arteries of left leg with ulceration of other part of lower leg; I83.228 Varicose veins of left lower extremity with both ulcer of other part of lower extremity and inflammation; L97.826 Non-pressure chronic ulcer of other part of left lower leg with bone involvement without evidence of necrosis; E11.621 Type 2 diabetes mellitus with foot ulcer; I70.245 Atherosclerosis of native arteries of left leg with ulceration of other part of foot; I83.025 Varicose veins of left lower extremity with ulcer other part of foot; L97.526 Non-pressure chronic ulcer of other part of left foot with bone involvement without evidence of necrosis; L84 Corns and callosities; I25.10 Atherosclerotic heart disease of native coronary artery without angina pectoris; I10 Essential (primary) hypertension; E11.69 Type 2 diabetes mellitus with other specified complication; M86.672 Other chronic osteomyelitis, left ankle and foot; E78.00 Pure hypercholesterolemia, unspecified; J44.9 Chronic obstructive pulmonary disease, unspecified; I77.1 Stricture of artery; F32.9 Major depressive disorder, single episode, unspecified; F17.210 Nicotine dependence, cigarettes, uncomplicated; F11.90 Opioid use, unspecified, uncomplicated; F10.10 Alcohol abuse, uncomplicated; F03.90 Unspecified dementia, unspecified severity, without behavioral disturbance, psychotic disturbance, mood disturbance, and anxiety; F41.9 Anxiety disorder, unspecified; Z79.2 Long term (current) use of antibiotics; Z79.899 Other long term (current) drug therapy; Z79.84 Long term (current) use of oral hypoglycemic drugs; Z87.442 Personal history of urinary calculi; Z79.4 Long term (current) use of insulin; Z95.1 Presence of aortocoronary bypass graft; Z86.73 Personal history of transient ischemic attack (TIA), and cerebral infarction without residual deficits
CPT/HCPCS: 97597

== ENCOUNTER 2020-05-14 10:59 | Day surgery (SDC) | payer MEDICARE, MEDICAID ==
[2020-05-14] MEDS ORDERED: LIDOcaine 2% 5ml jelly ONE (11:10)
== END 2020-05-14 11:55 | disposition home or self-care (01) ==
LOC: WOUND CARE 10:59
PROVIDERS: ATTEND Nurse Practitioner
DX: E11.622 Type 2 diabetes mellitus with other skin ulcer (principal); I70.248 Atherosclerosis of native arteries of left leg with ulceration of other part of lower leg; I83.228 Varicose veins of left lower extremity with both ulcer of other part of lower extremity and inflammation; L97.822 Non-pressure chronic ulcer of other part of left lower leg with fat layer exposed; E11.621 Type 2 diabetes mellitus with foot ulcer; I70.245 Atherosclerosis of native arteries of left leg with ulceration of other part of foot; I83.025 Varicose veins of left lower extremity with ulcer other part of foot; L97.522 Non-pressure chronic ulcer of other part of left foot with fat layer exposed; L84 Corns and callosities; I25.10 Atherosclerotic heart disease of native coronary artery without angina pectoris; I10 Essential (primary) hypertension; E11.69 Type 2 diabetes mellitus with other specified complication; M86.672 Other chronic osteomyelitis, left ankle and foot; E78.00 Pure hypercholesterolemia, unspecified; J44.9 Chronic obstructive pulmonary disease, unspecified; I77.1 Stricture of artery; F32.9 Major depressive disorder, single episode, unspecified; F17.210 Nicotine dependence, cigarettes, uncomplicated; F11.90 Opioid use, unspecified, uncomplicated; F10.10 Alcohol abuse, uncomplicated; F03.90 Unspecified dementia, unspecified severity, without behavioral disturbance, psychotic disturbance, mood disturbance, and anxiety; F41.9 Anxiety disorder, unspecified; Z79.2 Long term (current) use of antibiotics; Z79.899 Other long term (current) drug therapy; Z79.84 Long term (current) use of oral hypoglycemic drugs; Z87.442 Personal history of urinary calculi; Z79.4 Long term (current) use of insulin; Z95.1 Presence of aortocoronary bypass graft; Z86.73 Personal history of transient ischemic attack (TIA), and cerebral infarction without residual deficits
CPT/HCPCS: 97597

== ENCOUNTER 2020-05-21 12:05 | Day surgery (SDC) | payer MEDICARE, MEDICAID ==
[2020-05-21] MEDS ORDERED: LIDOcaine 2% 5ml jelly ONE (12:33)
== END 2020-05-21 13:00 | disposition home or self-care (01) ==
LOC: WOUND CARE 12:05
PROVIDERS: ATTEND Nurse Practitioner
DX: E11.622 Type 2 diabetes mellitus with other skin ulcer (principal); I70.248 Atherosclerosis of native arteries of left leg with ulceration of other part of lower leg; I83.228 Varicose veins of left lower extremity with both ulcer of other part of lower extremity and inflammation; L97.826 Non-pressure chronic ulcer of other part of left lower leg with bone involvement without evidence of necrosis; E11.621 Type 2 diabetes mellitus with foot ulcer; I70.245 Atherosclerosis of native arteries of left leg with ulceration of other part of foot; I83.025 Varicose veins of left lower extremity with ulcer other part of foot; L97.522 Non-pressure chronic ulcer of other part of left foot with fat layer exposed; L84 Corns and callosities; I25.10 Atherosclerotic heart disease of native coronary artery without angina pectoris; I10 Essential (primary) hypertension; E11.69 Type 2 diabetes mellitus with other specified complication; M86.672 Other chronic osteomyelitis, left ankle and foot; E78.00 Pure hypercholesterolemia, unspecified; J44.9 Chronic obstructive pulmonary disease, unspecified; I77.1 Stricture of artery; F32.9 Major depressive disorder, single episode, unspecified; F17.210 Nicotine dependence, cigarettes, uncomplicated; F11.90 Opioid use, unspecified, uncomplicated; F10.10 Alcohol abuse, uncomplicated; F03.90 Unspecified dementia, unspecified severity, without behavioral disturbance, psychotic disturbance, mood disturbance, and anxiety; F41.9 Anxiety disorder, unspecified; Z79.2 Long term (current) use of antibiotics; Z79.899 Other long term (current) drug therapy; Z79.84 Long term (current) use of oral hypoglycemic drugs; Z87.442 Personal history of urinary calculi; Z79.4 Long term (current) use of insulin; Z95.1 Presence of aortocoronary bypass graft; Z86.73 Personal history of transient ischemic attack (TIA), and cerebral infarction without residual deficits
CPT/HCPCS: 97597

== ENCOUNTER 2020-05-28 10:35 | Outpatient (CLI) | payer MEDICARE, MEDICAID | END 2020-05-28 11:28 | disposition home or self-care (01) | LOC: WOUND CARE 10:35 → EDSTATUS 10:40 → WOUND CARE 11:28 | PROVIDERS: ATTEND Nurse Practitioner | DX: E11.622 Type 2 diabetes mellitus with other skin ulcer (principal); I70.248 Atherosclerosis of native arteries of left leg with ulceration of other part of lower leg; I83.228 Varicose veins of left lower extremity with both ulcer of other part of lower extremity and inflammation; L97.826 Non-pressure chronic ulcer of other part of left lower leg with bone involvement without evidence of necrosis; E11.621 Type 2 diabetes mellitus with foot ulcer; I70.245 Atherosclerosis of native arteries of left leg with ulceration of other part of foot; I83.025 Varicose veins of left lower extremity with ulcer other part of foot; L97.522 Non-pressure chronic ulcer of other part of left foot with fat layer exposed; L84 Corns and callosities; I25.10 Atherosclerotic heart disease of native coronary artery without angina pectoris; I10 Essential (primary) hypertension; E11.69 Type 2 diabetes mellitus with other specified complication; M86.672 Other chronic osteomyelitis, left ankle and foot; E78.00 Pure hypercholesterolemia, unspecified; J44.9 Chronic obstructive pulmonary disease, unspecified; F32.9 Major depressive disorder, single episode, unspecified; F17.210 Nicotine dependence, cigarettes, uncomplicated; F11.90 Opioid use, unspecified, uncomplicated; F10.10 Alcohol abuse, uncomplicated; F03.90 Unspecified dementia, unspecified severity, without behavioral disturbance, psychotic disturbance, mood disturbance, and anxiety; F41.9 Anxiety disorder, unspecified; Z79.2 Long term (current) use of antibiotics; Z79.899 Other long term (current) drug therapy; Z79.84 Long term (current) use of oral hypoglycemic drugs; Z87.442 Personal history of urinary calculi; Z79.4 Long term (current) use of insulin; Z95.1 Presence of aortocoronary bypass graft; Z86.73 Personal history of transient ischemic attack (TIA), and cerebral infarction without residual deficits | CPT/HCPCS: G0463 ==

== ENCOUNTER 2020-06-04 11:00 | Day surgery (SDC) | payer MEDICARE, MEDICAID ==
[2020-06-04] MEDS ORDERED: LIDOcaine 2% 5ml jelly ONE (11:27)
== END 2020-06-04 12:26 | disposition home or self-care (01) ==
LOC: WOUND CARE 11:00
PROVIDERS: ATTEND Nurse Practitioner
DX: E11.622 Type 2 diabetes mellitus with other skin ulcer (principal); I70.248 Atherosclerosis of native arteries of left leg with ulceration of other part of lower leg; I83.228 Varicose veins of left lower extremity with both ulcer of other part of lower extremity and inflammation; L97.826 Non-pressure chronic ulcer of other part of left lower leg with bone involvement without evidence of necrosis; E11.621 Type 2 diabetes mellitus with foot ulcer; I70.245 Atherosclerosis of native arteries of left leg with ulceration of other part of foot; I83.025 Varicose veins of left lower extremity with ulcer other part of foot; L97.522 Non-pressure chronic ulcer of other part of left foot with fat layer exposed; L84 Corns and callosities; I25.10 Atherosclerotic heart disease of native coronary artery without angina pectoris; I10 Essential (primary) hypertension; E11.69 Type 2 diabetes mellitus with other specified complication; M86.672 Other chronic osteomyelitis, left ankle and foot; E78.00 Pure hypercholesterolemia, unspecified; J44.9 Chronic obstructive pulmonary disease, unspecified; I77.1 Stricture of artery; F32.9 Major depressive disorder, single episode, unspecified; F17.210 Nicotine dependence, cigarettes, uncomplicated; F11.90 Opioid use, unspecified, uncomplicated; F10.10 Alcohol abuse, uncomplicated; F03.90 Unspecified dementia, unspecified severity, without behavioral disturbance, psychotic disturbance, mood disturbance, and anxiety; F41.9 Anxiety disorder, unspecified; Z79.2 Long term (current) use of antibiotics; Z79.899 Other long term (current) drug therapy; Z79.84 Long term (current) use of oral hypoglycemic drugs; Z87.442 Personal history of urinary calculi; Z95.1 Presence of aortocoronary bypass graft; Z86.73 Personal history of transient ischemic attack (TIA), and cerebral infarction without residual deficits
CPT/HCPCS: 97597

== ENCOUNTER 2020-06-18 11:30 | Outpatient (CLI) | payer MEDICARE, MEDICAID ==
[2020-06-18] MEDS ORDERED: LIDOcaine 2% 5ml jelly ONE (12:20)
== END 2020-06-18 12:50 | disposition home or self-care (01) ==
LOC: WOUND CARE 11:30
PROVIDERS: ATTEND Nurse Practitioner
DX: E11.622 Type 2 diabetes mellitus with other skin ulcer (principal); I70.248 Atherosclerosis of native arteries of left leg with ulceration of other part of lower leg; I83.228 Varicose veins of left lower extremity with both ulcer of other part of lower extremity and inflammation; L97.826 Non-pressure chronic ulcer of other part of left lower leg with bone involvement without evidence of necrosis; E11.621 Type 2 diabetes mellitus with foot ulcer; I70.245 Atherosclerosis of native arteries of left leg with ulceration of other part of foot; I83.025 Varicose veins of left lower extremity with ulcer other part of foot; L97.522 Non-pressure chronic ulcer of other part of left foot with fat layer exposed; L84 Corns and callosities; I25.10 Atherosclerotic heart disease of native coronary artery without angina pectoris; I10 Essential (primary) hypertension; E11.69 Type 2 diabetes mellitus with other specified complication; M86.672 Other chronic osteomyelitis, left ankle and foot; E78.00 Pure hypercholesterolemia, unspecified; J44.9 Chronic obstructive pulmonary disease, unspecified; I77.1 Stricture of artery; F32.9 Major depressive disorder, single episode, unspecified; F17.210 Nicotine dependence, cigarettes, uncomplicated; F11.90 Opioid use, unspecified, uncomplicated; F10.10 Alcohol abuse, uncomplicated; F03.90 Unspecified dementia, unspecified severity, without behavioral disturbance, psychotic disturbance, mood disturbance, and anxiety; F41.9 Anxiety disorder, unspecified; Z79.2 Long term (current) use of antibiotics; Z79.899 Other long term (current) drug therapy; Z79.84 Long term (current) use of oral hypoglycemic drugs; Z87.442 Personal history of urinary calculi; Z95.1 Presence of aortocoronary bypass graft; Z86.73 Personal history of transient ischemic attack (TIA), and cerebral infarction without residual deficits
CPT/HCPCS: 97597

== ENCOUNTER 2020-06-25 10:53 | Outpatient (CLI) | payer MEDICARE, MEDICAID ==
[2020-06-25] MEDS ORDERED: LIDOcaine 2% 5ml jelly ONE (11:18)
== END 2020-06-25 23:59 | disposition home or self-care (01) ==
LOC: WOUND CARE 10:53
PROVIDERS: ATTEND Nurse Practitioner
DX: E11.622 Type 2 diabetes mellitus with other skin ulcer (principal); I70.248 Atherosclerosis of native arteries of left leg with ulceration of other part of lower leg; I83.228 Varicose veins of left lower extremity with both ulcer of other part of lower extremity and inflammation; L97.826 Non-pressure chronic ulcer of other part of left lower leg with bone involvement without evidence of necrosis; E11.621 Type 2 diabetes mellitus with foot ulcer; I70.245 Atherosclerosis of native arteries of left leg with ulceration of other part of foot; I83.025 Varicose veins of left lower extremity with ulcer other part of foot; L97.522 Non-pressure chronic ulcer of other part of left foot with fat layer exposed; L84 Corns and callosities; I25.10 Atherosclerotic heart disease of native coronary artery without angina pectoris; I10 Essential (primary) hypertension; E11.69 Type 2 diabetes mellitus with other specified complication; M86.672 Other chronic osteomyelitis, left ankle and foot; E78.00 Pure hypercholesterolemia, unspecified; J44.9 Chronic obstructive pulmonary disease, unspecified; I77.1 Stricture of artery; F32.9 Major depressive disorder, single episode, unspecified; F17.210 Nicotine dependence, cigarettes, uncomplicated; F11.90 Opioid use, unspecified, uncomplicated; F10.10 Alcohol abuse, uncomplicated; F03.90 Unspecified dementia, unspecified severity, without behavioral disturbance, psychotic disturbance, mood disturbance, and anxiety; F41.9 Anxiety disorder, unspecified; Z79.2 Long term (current) use of antibiotics; Z79.899 Other long term (current) drug therapy; Z79.84 Long term (current) use of oral hypoglycemic drugs; Z87.442 Personal history of urinary calculi; Z95.1 Presence of aortocoronary bypass graft; Z86.73 Personal history of transient ischemic attack (TIA), and cerebral infarction without residual deficits
CPT/HCPCS: 11042; 11043

== ENCOUNTER → 2020-07-02 | Outpatient (CLI) | payer MEDICARE, MEDICAID ==
[~2020-07-02] MED LIST changes: +LIDOcaine 2% 5ml jelly ONE
== END | disposition home or self-care (01) ==
LOC: WOUND CARE 10:30 → EDSTATUS 11:40
PROVIDERS: ATTEND Nurse Practitioner
DX: E11.622 Type 2 diabetes mellitus with other skin ulcer (principal); I70.248 Atherosclerosis of native arteries of left leg with ulceration of other part of lower leg; I83.228 Varicose veins of left lower extremity with both ulcer of other part of lower extremity and inflammation; L97.826 Non-pressure chronic ulcer of other part of left lower leg with bone involvement without evidence of necrosis; E11.621 Type 2 diabetes mellitus with foot ulcer; I70.245 Atherosclerosis of native arteries of left leg with ulceration of other part of foot; I83.025 Varicose veins of left lower extremity with ulcer other part of foot; L97.522 Non-pressure chronic ulcer of other part of left foot with fat layer exposed; L84 Corns and callosities; I25.10 Atherosclerotic heart disease of native coronary artery without angina pectoris; I10 Essential (primary) hypertension; E11.69 Type 2 diabetes mellitus with other specified complication; M86.672 Other chronic osteomyelitis, left ankle and foot; E78.00 Pure hypercholesterolemia, unspecified; J44.9 Chronic obstructive pulmonary disease, unspecified; I77.1 Stricture of artery; F32.9 Major depressive disorder, single episode, unspecified; F17.210 Nicotine dependence, cigarettes, uncomplicated; F11.90 Opioid use, unspecified, uncomplicated; F10.10 Alcohol abuse, uncomplicated; F41.9 Anxiety disorder, unspecified; Z79.2 Long term (current) use of antibiotics; Z79.899 Other long term (current) drug therapy; Z79.84 Long term (current) use of oral hypoglycemic drugs; Z87.442 Personal history of urinary calculi; Z95.1 Presence of aortocoronary bypass graft; Z86.73 Personal history of transient ischemic attack (TIA), and cerebral infarction without residual deficits
CPT/HCPCS: 97597

== ENCOUNTER → 2020-07-09 | Outpatient (CLI) | payer MEDICARE, MEDICAID | END | disposition home or self-care (01) | LOC: WOUND CARE 11:56 | PROVIDERS: ATTEND Nurse Practitioner | DX: E11.622 Type 2 diabetes mellitus with other skin ulcer (principal); I70.248 Atherosclerosis of native arteries of left leg with ulceration of other part of lower leg; I83.228 Varicose veins of left lower extremity with both ulcer of other part of lower extremity and inflammation; L97.826 Non-pressure chronic ulcer of other part of left lower leg with bone involvement without evidence of necrosis; E11.621 Type 2 diabetes mellitus with foot ulcer; I70.245 Atherosclerosis of native arteries of left leg with ulceration of other part of foot; I83.025 Varicose veins of left lower extremity with ulcer other part of foot; L97.522 Non-pressure chronic ulcer of other part of left foot with fat layer exposed; L84 Corns and callosities; I25.10 Atherosclerotic heart disease of native coronary artery without angina pectoris; I10 Essential (primary) hypertension; E11.69 Type 2 diabetes mellitus with other specified complication; M86.672 Other chronic osteomyelitis, left ankle and foot; E78.00 Pure hypercholesterolemia, unspecified; J44.9 Chronic obstructive pulmonary disease, unspecified; I77.1 Stricture of artery; F32.9 Major depressive disorder, single episode, unspecified; F17.210 Nicotine dependence, cigarettes, uncomplicated; F11.90 Opioid use, unspecified, uncomplicated; F10.10 Alcohol abuse, uncomplicated; F03.90 Unspecified dementia, unspecified severity, without behavioral disturbance, psychotic disturbance, mood disturbance, and anxiety; F41.9 Anxiety disorder, unspecified; Z79.2 Long term (current) use of antibiotics; Z79.899 Other long term (current) drug therapy; Z79.84 Long term (current) use of oral hypoglycemic drugs; Z87.442 Personal history of urinary calculi; Z95.1 Presence of aortocoronary bypass graft; Z86.73 Personal history of transient ischemic attack (TIA), and cerebral infarction without residual deficits | CPT/HCPCS: 97597 ==

== ENCOUNTER 2020-07-16 11:44 | Outpatient (CLI) | payer MEDICARE, MEDICAID ==
[~2020-07-16 11:44] MED LIST changes: -LIDOcaine 2% 5ml jelly ONE
[2020-07-16] MEDS ORDERED: LIDOcaine 2% 5ml jelly ONE (12:08)
[2020-07-16] MEDS ORDERED: hydrocortisone 1% cream 28gm TP ONE ×2 (12:28→12:43)
== END 2020-07-16 23:59 | disposition home or self-care (01) ==
LOC: WOUND CARE 11:44
PROVIDERS: ATTEND Nurse Practitioner
DX: E11.622 Type 2 diabetes mellitus with other skin ulcer (principal); I70.248 Atherosclerosis of native arteries of left leg with ulceration of other part of lower leg; I83.228 Varicose veins of left lower extremity with both ulcer of other part of lower extremity and inflammation; L97.826 Non-pressure chronic ulcer of other part of left lower leg with bone involvement without evidence of necrosis; E11.621 Type 2 diabetes mellitus with foot ulcer; I70.245 Atherosclerosis of native arteries of left leg with ulceration of other part of foot; I83.025 Varicose veins of left lower extremity with ulcer other part of foot; L97.521 Non-pressure chronic ulcer of other part of left foot limited to breakdown of skin; L84 Corns and callosities; I25.10 Atherosclerotic heart disease of native coronary artery without angina pectoris; I10 Essential (primary) hypertension; E11.69 Type 2 diabetes mellitus with other specified complication; M86.672 Other chronic osteomyelitis, left ankle and foot; E78.00 Pure hypercholesterolemia, unspecified; J44.9 Chronic obstructive pulmonary disease, unspecified; F32.9 Major depressive disorder, single episode, unspecified; F17.210 Nicotine dependence, cigarettes, uncomplicated; F11.90 Opioid use, unspecified, uncomplicated; F10.10 Alcohol abuse, uncomplicated; F03.90 Unspecified dementia, unspecified severity, without behavioral disturbance, psychotic disturbance, mood disturbance, and anxiety; F41.9 Anxiety disorder, unspecified; Z79.2 Long term (current) use of antibiotics; Z79.899 Other long term (current) drug therapy; Z79.84 Long term (current) use of oral hypoglycemic drugs; Z87.442 Personal history of urinary calculi; Z95.1 Presence of aortocoronary bypass graft; Z86.73 Personal history of transient ischemic attack (TIA), and cerebral infarction without residual deficits
CPT/HCPCS: 11042; 97597

== ENCOUNTER 2020-07-23 11:12 | Outpatient (CLI) | payer MEDICARE, MEDICAID ==
[2020-07-23] MEDS ORDERED: LIDOcaine 2% 5ml jelly ONE (11:36)
== END 2020-07-23 23:59 | disposition home or self-care (01) ==
LOC: WOUND CARE 11:12
PROVIDERS: ATTEND Nurse Practitioner
DX: E11.622 Type 2 diabetes mellitus with other skin ulcer (principal); I70.248 Atherosclerosis of native arteries of left leg with ulceration of other part of lower leg; I83.228 Varicose veins of left lower extremity with both ulcer of other part of lower extremity and inflammation; L97.822 Non-pressure chronic ulcer of other part of left lower leg with fat layer exposed; L84 Corns and callosities; I25.10 Atherosclerotic heart disease of native coronary artery without angina pectoris; I10 Essential (primary) hypertension; E11.69 Type 2 diabetes mellitus with other specified complication; M86.672 Other chronic osteomyelitis, left ankle and foot; E78.00 Pure hypercholesterolemia, unspecified; J44.9 Chronic obstructive pulmonary disease, unspecified; F32.9 Major depressive disorder, single episode, unspecified; F17.210 Nicotine dependence, cigarettes, uncomplicated; F11.90 Opioid use, unspecified, uncomplicated; F10.10 Alcohol abuse, uncomplicated; F03.90 Unspecified dementia, unspecified severity, without behavioral disturbance, psychotic disturbance, mood disturbance, and anxiety; F41.9 Anxiety disorder, unspecified; Z79.2 Long term (current) use of antibiotics; Z79.899 Other long term (current) drug therapy; Z79.84 Long term (current) use of oral hypoglycemic drugs; Z87.442 Personal history of urinary calculi; Z95.1 Presence of aortocoronary bypass graft; Z86.73 Personal history of transient ischemic attack (TIA), and cerebral infarction without residual deficits
CPT/HCPCS: 11042

== ENCOUNTER 2020-08-06 11:43 | Outpatient (CLI) | payer MEDICARE, MEDICAID ==
[2020-08-06] MEDS ORDERED: LIDOcaine 2% 5ml jelly ONE (11:58)
== END 2020-08-06 23:59 | disposition home or self-care (01) ==
LOC: WOUND CARE 11:43
PROVIDERS: ATTEND Nurse Practitioner
DX: E11.622 Type 2 diabetes mellitus with other skin ulcer (principal); I70.248 Atherosclerosis of native arteries of left leg with ulceration of other part of lower leg; I83.228 Varicose veins of left lower extremity with both ulcer of other part of lower extremity and inflammation; L97.822 Non-pressure chronic ulcer of other part of left lower leg with fat layer exposed; E11.621 Type 2 diabetes mellitus with foot ulcer; L97.521 Non-pressure chronic ulcer of other part of left foot limited to breakdown of skin; L84 Corns and callosities; I25.10 Atherosclerotic heart disease of native coronary artery without angina pectoris; I10 Essential (primary) hypertension; E11.69 Type 2 diabetes mellitus with other specified complication; M86.672 Other chronic osteomyelitis, left ankle and foot; E78.00 Pure hypercholesterolemia, unspecified; J44.9 Chronic obstructive pulmonary disease, unspecified; F32.9 Major depressive disorder, single episode, unspecified; F17.210 Nicotine dependence, cigarettes, uncomplicated; F11.90 Opioid use, unspecified, uncomplicated; F10.10 Alcohol abuse, uncomplicated; F03.90 Unspecified dementia, unspecified severity, without behavioral disturbance, psychotic disturbance, mood disturbance, and anxiety; F41.9 Anxiety disorder, unspecified; Z79.2 Long term (current) use of antibiotics; Z79.899 Other long term (current) drug therapy; Z79.84 Long term (current) use of oral hypoglycemic drugs; Z87.442 Personal history of urinary calculi; Z95.1 Presence of aortocoronary bypass graft; Z86.73 Personal history of transient ischemic attack (TIA), and cerebral infarction without residual deficits
CPT/HCPCS: 11042

== ENCOUNTER 2020-08-13 11:26 | Outpatient (CLI) | payer MEDICARE, MEDICAID ==
[2020-08-13] MEDS ORDERED: LIDOcaine 2% 5ml jelly ONE (11:52)
== END 2020-08-13 23:59 | disposition home or self-care (01) ==
LOC: WOUND CARE 11:26
PROVIDERS: ATTEND Nurse Practitioner
DX: E11.622 Type 2 diabetes mellitus with other skin ulcer (principal); I70.248 Atherosclerosis of native arteries of left leg with ulceration of other part of lower leg; I83.228 Varicose veins of left lower extremity with both ulcer of other part of lower extremity and inflammation; L97.826 Non-pressure chronic ulcer of other part of left lower leg with bone involvement without evidence of necrosis; E11.621 Type 2 diabetes mellitus with foot ulcer; I70.245 Atherosclerosis of native arteries of left leg with ulceration of other part of foot; I83.025 Varicose veins of left lower extremity with ulcer other part of foot; L97.521 Non-pressure chronic ulcer of other part of left foot limited to breakdown of skin; L84 Corns and callosities; I25.10 Atherosclerotic heart disease of native coronary artery without angina pectoris; I10 Essential (primary) hypertension; E11.69 Type 2 diabetes mellitus with other specified complication; M86.672 Other chronic osteomyelitis, left ankle and foot; E78.00 Pure hypercholesterolemia, unspecified; J44.9 Chronic obstructive pulmonary disease, unspecified; F32.9 Major depressive disorder, single episode, unspecified; F17.210 Nicotine dependence, cigarettes, uncomplicated; F11.90 Opioid use, unspecified, uncomplicated; F10.10 Alcohol abuse, uncomplicated; F03.90 Unspecified dementia, unspecified severity, without behavioral disturbance, psychotic disturbance, mood disturbance, and anxiety; F41.9 Anxiety disorder, unspecified; Z79.2 Long term (current) use of antibiotics; Z79.899 Other long term (current) drug therapy; Z79.84 Long term (current) use of oral hypoglycemic drugs; Z87.442 Personal history of urinary calculi; Z95.1 Presence of aortocoronary bypass graft; Z86.73 Personal history of transient ischemic attack (TIA), and cerebral infarction without residual deficits
CPT/HCPCS: 11042

== ENCOUNTER 2020-08-20 11:13 | Outpatient (CLI) | payer MEDICARE, MEDICAID ==
[2020-08-20] MEDS ORDERED: LIDOcaine 2% 5ml jelly ONE (11:29)
== END 2020-08-20 23:59 | disposition home or self-care (01) ==
LOC: WOUND CARE 11:13
PROVIDERS: ATTEND Nurse Practitioner
DX: E11.622 Type 2 diabetes mellitus with other skin ulcer (principal); I70.248 Atherosclerosis of native arteries of left leg with ulceration of other part of lower leg; I83.228 Varicose veins of left lower extremity with both ulcer of other part of lower extremity and inflammation; L97.826 Non-pressure chronic ulcer of other part of left lower leg with bone involvement without evidence of necrosis; E11.621 Type 2 diabetes mellitus with foot ulcer; I70.245 Atherosclerosis of native arteries of left leg with ulceration of other part of foot; I83.025 Varicose veins of left lower extremity with ulcer other part of foot; L97.521 Non-pressure chronic ulcer of other part of left foot limited to breakdown of skin; L84 Corns and callosities; I25.10 Atherosclerotic heart disease of native coronary artery without angina pectoris; I10 Essential (primary) hypertension; E11.69 Type 2 diabetes mellitus with other specified complication; M86.672 Other chronic osteomyelitis, left ankle and foot; E78.00 Pure hypercholesterolemia, unspecified; J44.9 Chronic obstructive pulmonary disease, unspecified; F32.9 Major depressive disorder, single episode, unspecified; F17.210 Nicotine dependence, cigarettes, uncomplicated; F11.90 Opioid use, unspecified, uncomplicated; F10.10 Alcohol abuse, uncomplicated; F03.90 Unspecified dementia, unspecified severity, without behavioral disturbance, psychotic disturbance, mood disturbance, and anxiety; F41.9 Anxiety disorder, unspecified; Z79.2 Long term (current) use of antibiotics; Z79.899 Other long term (current) drug therapy; Z79.84 Long term (current) use of oral hypoglycemic drugs; Z87.442 Personal history of urinary calculi; Z95.1 Presence of aortocoronary bypass graft; Z86.73 Personal history of transient ischemic attack (TIA), and cerebral infarction without residual deficits
CPT/HCPCS: 11042

== ENCOUNTER → 2020-11-12 | Outpatient (CLI) | payer MEDICARE, MEDICAID ==
[~2020-11-12] MED LIST changes: +LIDOcaine 2% 5ml jelly ONE
== END | disposition home or self-care (01) ==
LOC: EDSTATUS 11:30 → WOUND CARE 11:51
PROVIDERS: ATTEND Nurse Practitioner
DX: E11.622 Type 2 diabetes mellitus with other skin ulcer (principal); I70.248 Atherosclerosis of native arteries of left leg with ulceration of other part of lower leg; I83.228 Varicose veins of left lower extremity with both ulcer of other part of lower extremity and inflammation; L97.826 Non-pressure chronic ulcer of other part of left lower leg with bone involvement without evidence of necrosis; E11.621 Type 2 diabetes mellitus with foot ulcer; I70.245 Atherosclerosis of native arteries of left leg with ulceration of other part of foot; I83.025 Varicose veins of left lower extremity with ulcer other part of foot; L97.521 Non-pressure chronic ulcer of other part of left foot limited to breakdown of skin; L84 Corns and callosities; I25.10 Atherosclerotic heart disease of native coronary artery without angina pectoris; I10 Essential (primary) hypertension; E11.69 Type 2 diabetes mellitus with other specified complication; M86.672 Other chronic osteomyelitis, left ankle and foot; E78.00 Pure hypercholesterolemia, unspecified; J44.9 Chronic obstructive pulmonary disease, unspecified; F32.9 Major depressive disorder, single episode, unspecified; F17.210 Nicotine dependence, cigarettes, uncomplicated; F11.90 Opioid use, unspecified, uncomplicated; F10.10 Alcohol abuse, uncomplicated; F03.90 Unspecified dementia, unspecified severity, without behavioral disturbance, psychotic disturbance, mood disturbance, and anxiety; F41.9 Anxiety disorder, unspecified; Z79.2 Long term (current) use of antibiotics; Z79.899 Other long term (current) drug therapy; Z87.442 Personal history of urinary calculi; Z79.84 Long term (current) use of oral hypoglycemic drugs; Z95.1 Presence of aortocoronary bypass graft; Z86.73 Personal history of transient ischemic attack (TIA), and cerebral infarction without residual deficits
CPT/HCPCS: 11042

== ENCOUNTER 2024-08-12 12:03 | Outpatient (CLI) | payer MEDICARE, MEDICAID ==
[~2024-08-12 12:03] MED LIST changes: -LIDOcaine 2% 5ml jelly ONE
== END 2024-08-12 23:59 | disposition home or self-care (01) ==
LOC: NM 12:03
PROVIDERS: ATTEND Student in an Organized Health Care Education/Training Program
DX: M21.952 Unspecified acquired deformity of left thigh (principal); M79.605 Pain in left leg; M86.60 Other chronic osteomyelitis, unspecified site; V89.2XXA Person injured in unspecified motor-vehicle accident, traffic, initial encounter
CPT/HCPCS: 78315; A9503

== ENCOUNTER 2025-02-19 20:47 | Inpatient (IN) | payer MEDICARE, MEDICAID ==
[~2025-02-19] VITALS: Ht 180.3 cm; Wt 60.8 kg
[2025-02-19 22:10] LABS: BASOPHILS # (AUTO) 0.1 X10'3 (0-0.2); BASOPHILS % (AUTO) 0.4 % (0-1); EOSINOPHILS % (AUTO) 0 % (0-6); HEMATOCRIT 42.8 % (42.0-52.0); HEMOGLOBIN 14.1 g/dl (14.0-17.9); LYMPHOCYTES # (AUTO) 0.9 X10'3 (1.1-4.8); LYMPHOCYTES % (AUTO) 5.1 % (21-51); MEAN CORPUSCULAR HEMOGLOBIN 30.9 PG (27.0-31.0); MEAN CORPUSCULAR HGB CONC 32.9 g/dL (33.0-36.5); MEAN PLATELET VOLUME 8.5 FL (7.4-10.4); MONOCYTES # (AUTO) 1.9 X10'3 (0-0.9); MONOCYTES % (AUTO) 10.8 % (2-12); NEUTROPHILS # (AUTO) 14.6 X10'3 (1.8-7.7); NEUTROPHILS % (AUTO) 83.7 % (42-75); PLATELET COUNT 281 X10'3 (140-440); RED BLOOD COUNT 4.55 X10'6 (4.70-6.10); RED CELL DISTRIBUTION WIDTH 15.8 % (11.5-14.5); WHITE BLOOD COUNT 17.4 X10'3 (4.5-11.0)
[2025-02-19 22:30] LABS: TOTAL CELLS COUNTED 100
[2025-02-19 22:31] LABS: PLATELET ESTIMATE NORMAL
[2025-02-19 22:33] LABS: ALBUMIN 3.5 G/DL (3.4-5.0); ANION GAP 17 (8-16); BLOOD UREA NITROGEN 54 MG/DL (7-18); BUN/CREATININE RATIO 17.1 (10.0-20.0); CALCIUM 10.1 MG/DL (8.5-10.1); CHLORIDE 115 MMOL/L (99-107); CREATININE 3.15 MG/DL (0.60-1.10); GLUCOSE 172 MG/DL (70-104); POTASSIUM 4.4 MMOL/L (3.5-5.1); PRO BRAIN NATRIURETIC PEPTIDE 4178 PG/ML (0-450); SODIUM 154 MMOL/L (135-145); TOTAL CARBON DIOXIDE 22.5 MMOL/L (24-32); eCRCL 17 ML/MIN; eGFR 19 ML/MIN
[2025-02-19] MEDS: normal saline 1000ML IV soln IVB ONE (22:49)
[2025-02-19] MEDS: CefTRIAXone/D5W-Rocephin 1gm 50 ML IV ONE (22:49)
--- NOTE | 2025-02-19 23:05 | RADIOLOGY REPORT ---
Procedure: DI CHEST,TWO VIEWS 02/19/2025 09:24 PM Indication: WET COUGH, SOB, HX OF PNEUMONIA AND COPD Comparison: None TECHNIQUE: DI CHEST,TWO VIEWS FINDINGS/IMPRESSION: There is diffuse prominence of the interstitial markings. There is focal density in the right lower l dawood which may be referable to soft tissue attenuation and overlying structures, though underlying les ion cannot be excluded. This may be further evaluated with CT chest if clinically indicated. The car diomediastinal silhouette is unremarkable. No pleural effusion or pneumothorax. There is mild nonspec ific wedging of a lower thoracic vertebral body, age indeterminate.
--- NOTE | 2025-02-19 23:32 | Physician Documentation ---
History of Present Illness ~ Chief Complaint: Shortness of Breath Stated Complaint: DISORIENTED,CONGESTION Time Seen by MD: 22:38 HPI Patient presents to the emergency room for evaluation of cough. Patient has a chronic cough and continues to smoke in his on oxygen 2 L. daughter states that his cough has worsened over the past 2-3 days and when she checked on him today he seemed very weak with unsteady gait. She does note that has very hot inside his house as well. Medication Reconciliation Allergies: Coded Allergies: Penicillins (Unverified Allergy, Mild, 02/19/25) itching Scheduled Lisinopril/Hydrochlorothiazide (Lisinopril-Hctz 20-12.5 mg Tab), 1 TAB PO DAILY, (Reported) Memantine Hcl* (Namenda*), 2 TAB PO BID, (Reported) Rosuvastatin Calcium* (Crestor*), 1 TAB PO DAILY, (Reported) Tramadol HCl (Tramadol HCl), 1 TABLET PO Q6H, (Reported) Review of Systems ROS All review of systems negative except as per HPI Physical Exam Vital Signs: Temperature: 97.6, Source: Oral, Heart Rate: 84, Respiratory Rate: 22, BP: 141/62, Pulse Oximetry: 91, Weight: 60.800 Oxygen Flow Rate: 0 Physical Exam General: Patient is awake, alert, oriented x4 in no acute distress Head: Normocephalic and atraumatic. Eyes: Conjunctival normal. EOMI. PERRL. ENT: Mucous membranes moist. Neck: Supple, trachea is midline. Chest: Coarse breath sounds bilaterally. There is no accessory muscle use or retractions. Cardiac: RRR without murmurs, gallops, or rubs. Extremities: Normal strength. Normal range of motion. Noted chronic deformity from previous surgery on left lower extremity Progress Results/Orders Results/Orders Orders - RAMIRO KANG MD Chest,Two Views (02/19/25 21:20) Culture Blood (02/19/25 21:20) Saline Lock (02/19/25 21:20) Oxygen (02/19/25 21:20) Lactic,2hr (02/19/25 23:30) Page Hospitalist (02/19/25 23:33) Fill Out Med Reconciliation (02/19/25 23:33) Completed Orders - RAMIRO KANG MD Chest,Two Views (02/19/25 21:20) Cbc/Diff (02/19/25 21:20) BMP (02/19/25 21:20) PBNP (02/19/25 21:20) Lacticsepsis (02/19/25 21:20) Man Diff (02/19/25 22:04) Normal Saline 1000ml (Sodium Chloride 10 (02/19/25 22:45) Azithromycin/Ns 500mg/250ml (Zithromax/N (02/19/25 22:45) Ceftriaxone/T1r-Joxuhdmo 1gm (Rocephin 1 (02/19/25 22:45) Electrocardiogram (02/19/25 23:33) Nicotine 21mg Patch -24hr (Habitrol Patc (02/19/25 23:35) Hydrocodone/Apap 5/325mg Tab ([place] 5/32 (02/19/25 23:35) Medications Received in ER Medications (Trade) Dose Ordered Sig/Rashida Route PRN Reason Start Time Stop Time Status Last Admin Dose Admin (sodium chloride 1000ml IV soln) 2,000 ml ONCE ONCE IVB 02/19/25 22:45 02/19/25 22:46 DC 02/19/25 22:49 2,000 ML Ceftriaxone Sodium 50 ml @ 100 mls/hr ONCE ONCE IV 02/19/25 22:45 02/19/25 23:14 DC 02/19/25 22:49 100 MLS/HR Vital Signs 02/19/25 02/19/25 02/19/25 21:11 21:25 23:01 Temp 97.6 Pulse 84 Resp 25 22 B/P (MAP) 141/62 Pulse Ox 84 91 O2 Delivery Nasal Cannula* O2 Flow Rate 0 3 FiO2 N/A Laboratory Tests Test 02/19/25 22:04 White Blood Count 17.4 H Red Blood Count 4.55 L Hemoglobin 14.1 Hematocrit 42.8 Mean Corpuscular Volume 94.0 Mean Corpuscular Hemoglobin 30.9 Mean Corpuscular Hemoglobin Concent 32.9 L Red Cell Distribution Width 15.8 H Platelet Count 281 Mean Platelet Volume 8.5 Neutrophils (%) (Auto) 83.7 H Lymphocytes (%) (Auto) 5.1 L Monocytes (%) (Auto) 10.8 Eosinophils (%) (Auto) 0 Basophils (%) (Auto) 0.4 Neutrophils # (Auto) 14.6 H Lymphocytes # (Auto) 0.9 L Monocytes # (Auto) 1.9 H Eosinophils # (Auto) 0.0 Basophils # (Auto) 0.1 CBC Comment Differential Total Cells Counted 100 Neutrophils % (Manual) 74.0 Band Neutrophils % 5.0 Lymphocytes % (Manual) 11.0 L Monocytes % (Manual) 8.0 Eosinophils % (Manual) 1.0 Metamyelocytes % 1.0 H Platelet Estimate Normal Red Blood Cell Morphology Normal Basophilic Stippling Sodium Level 154 H Potassium Level 4.4 Chloride Level 115 H Carbon Dioxide Level 22.5 L Anion Gap 17 H Blood Urea Nitrogen 54 H Creatinine 3.15 H Estimated GFR/1.73 m2 19 BUN/Creatinine Ratio 17.1 Glucose Level 172 H Lactic Acid Level 2.7 H Calcium Level 10.1 Pro-B-Type Natriuretic Peptide 4178 H Albumin 3.5 Chemistry Comments Medical Decision Making Findings Patient presents to the emergency room with unsteady gait and cough. Differentials include but are not limited to pneumonia, dehydration, electrolyte disturbances, sepsis therefore emergent labs and imaging indicated. Labs show acute kidney injury and IV fluids has been initiated. Given patient's respiratory history and worsening of symptoms we will cover for pneumonia. Departure Admitted to Inpatient Unit: yes, to hospitalist Impression: Primary Impression: Acute kidney failure Additional Impression: Pneumonia Condition: Guarded Referrals: NO PRIMARY CARE PROVIDER (PCP) Signature Scribe Signature: No scribe Attestation: The note accurately reflects work and decisions made by me.Ramiro Kang MD 02/19/25 23:50 RAMIRO KANG MD Feb 19, 2025 23:32
--- NOTE | 2025-02-19 23:41 | ELECTROCARDIOGRAPH REPORT ---
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 Felice Burr Measurements Intervals [place] Rate: 71 P: 0 MO: 0 QRS: 86 QRSD: 90 T: 32 QT: 375 QTc: 408 Interpretive Statements Atrial fibrillation Borderline right axis deviation Minimal ST depression, inferior leads Electronically Signed On 02-27-2025 18:42:[address] Felice Burr Please click the below link to view image of tracing.
[2025-02-20] VITALS (12 sets, daily range): BP systolic 121–150; BP diastolic 52–64; PULSE 58–88; RESP 17–24; TEMP 97.9–98.3; O2SAT 88–95
[2025-02-20] MEDS ORDERED: normal saline 1000ml 1,000 ML IV SCH (00:15)
[2025-02-20] MEDS ORDERED: ondansetron/PF 4mg/2ml inj IV PRN (00:15)
[2025-02-20] MEDS ORDERED: potassium Cl 20 mEq SR tablet PO PRN ×2 (00:15)
[2025-02-20] MEDS ORDERED: magnesium sulf-water 2g/50mL 50 ML IV PRN (00:15)
[2025-02-20] MEDS ORDERED: magnesium Cl slow-release 64mg tablet PO PRN (00:15)
[2025-02-20] MEDS ORDERED: potassium Cl 40MEQ/1/2NS 520ml 520 ML IV PRN (00:15)
[2025-02-20] MEDS ORDERED: PERFLUTREN PROTEIN-A MICROSPHR (Optison) 0.22 MG/ML 3ML VIAL IV PRN (00:15)
[2025-02-20] MEDS ORDERED: magnesium sulf-water 4G/100mL 100 ML IV PRN (00:15)
[2025-02-20] MEDS: HYDROcodone/acetaminophen 5mg/325mg tablet PO ONE (00:17)
[2025-02-20] MEDS: nicotine 21mg patch - 24 hr TD ONE ×2 (00:17→00:25)
[2025-02-20] MEDS: azithromycin/NS 500mg/250ml 250 ML IV ONE (00:19)
[2025-02-20] MEDS ORDERED: ipratropium/albuterol 3ml nebule NEB PRN (00:20)
--- NOTE | 2025-02-20 00:30 | HISTORY AND PHYSICAL-Residence ---
History & Physical Providers to CC Resident Creating Document: KAVITA BEST RES ~ History of Present Illness Reason for Admit\Complaint: SOB, Cough History of Present Illness This is a 74-year-old male with PMH of COPD (on 2 L home oxygen at baseline), hypertension baseline dementia, and bladder cancer status post post surgery and radiation in November 2023. He was brought to the emergency department by his niece, who is also his in-home service consultant, for evaluation of progressively worsening shortness of breath over the past four days. The patient also reports worsening cough with increased whitish sputum production and intermittent chills. His knees notice that he appears increasingly weak and has been experiencing unsteady gait. The patient is a current smoker with a 60 year history of smoking two packs per day. He independently ambulates without any assistance. PCP is SIMONA. Allergies: Coded Allergies: Penicillins (Unverified Allergy, Mild, 02/19/25) itching Home Medications Home Medications Active Reported Namenda* (Memantine) 5 Mg Tablet 2 Tab PO BID Tramadol HCl 50 Mg Tablet 1 Tablet PO Q6H Lisinopril-Hctz 20-12.5 mg Tab (Lisinopril/Hydrochlorothiazide) 1 Each Tablet 1 Tab PO DAILY 30 Days Crestor* (Rosuvastatin Calcium) 10 Mg Tablet 1 Tab PO DAILY 30 Days Past Medical History Past Medical History COPD, HYPERTENSION, HYPERLIPIDEMIA, BLADDER CANCER STATUS POST SURGERY AND RADIATION Past Surgical History Surgical History Comment Bladder surgery, orthopedic surgeries Past Social History Social History Comment Ambulates independently, lives alone, his HS worker who is also his 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 Smokes two packs per day for 60 years. No alcohol or recreational drugs. ROS All Other Systems: Reviewed and Negative ROS As stated above in the HPI, otherwise all systems are reviewed and negative. Exam Vitals: Vital Signs Date Time Temp Pulse Resp B/P (MAP) Pulse Ox O2 Delivery O2 Flow Rate FiO2 02/20/25 00:21 74 146/58 (87) 92 3.0 02/20/25 00:17 22 02/19/25 21:25 Nasal Cannula* N/A 02/19/25 21:11 97.6 General: Awake and Alert, can not speak full sentence, multiple pauses HEENT: Conjunctiva pink, Sclera clear, Mucus Membranes moist. Neck: Supple without masses and tenderness. No JVD Resp: Diffuse expiratory wheezing, basilar crackles Heart: Tachycardic, , normal S1 and S2 without murmur, rub or gallop. Abdomen: Soft and non tender no organomegaly Extremities: No cyanosis,clubbing or edema. Skin: Warm and Dry. Diagnostic Data Last Recorded Lab Results: 02/19/25220302/19/252203 Advance Care Planning Advanced Care plannin - 30 Minutes Additional Plan Acute hypoxemic respiratory failure Acute on chronic COPD exacerbation Sepsis, POA; marked leukocytosis, lactic acidosis, tachypnia Source unknown, likely respiratory, UA pending. Preliminary blood culture negative. COVID/influenza type A& B pending Presents with worsening dyspnea, productive cough with white sputum, and subjective fever, suggestive of COPD exacerbation, possibly triggered by respiratory infection Maintain oxygen saturation between 89 and 90% - on 3 L oxygen via nasal cannula. ABGs if respiratory status deteriorates. Prepare for escalation to BiPAP if needed Solu-Medrol 125 mg IV bolus given Solu-Medrol 40 Mg IV twice daily Ceftriaxone 1 g IV daily Azithromycin 500 mg IV daily DuoNeb nebulization every 4 hours as scheduled, and every 4 hours as needed Incentive spirometry and flutter valve Elevated proBNP; >4000 Basilar crackles and elevated proBNP raise concern for possible heart failure component, but patient appears clinically dry. CXR is negative for pulmonary congestions. Echo ordered to evaluate cardiac function Diuretics not started yet; monitor for signs of fluid overload. Follow echocardiogram, strict I&Os. Reassess fluid status daily Acute kidney injury; on CKD-4, likely renal tubular stasis EGFR 19, creatinine 3.15, BUN 54, sodium 154 Likely multifactorial; prerenal azotemia from volume depletion, underlying CKD, possible cardiorenal syndrome Gentle IVF hydration; monitor for fluid overload Trend creatinine, BUN, and electrolytes daily Avoid nephrotoxins Consider Nephrology consult if worsening Follow urine lytes Hypernatremia Sodium 154 Likely secondary to dehydration and reduced free water intake Gentle hydration with IVF; half NS 100 mL/hours Monitor BMP and fluid status Follow serum osmolality, urine osmolality, and urine sodium Baseline dementia Acute functional decline Reports of generalized weakness and unsteady gait Infection versus metabolic cause Fall precautions in place PT/OP Monitor cognition and orientation Hypertension/hyperlipidemia Continue home medications Lipid panel and A1c pending Tobacco use disorder Current 60 pack-year history Significant risk factor for COPD progression Smoking cessation counseling provided, appeared less interested Nicotine patch H/O Bladder cancer Status post surgery and radiation/November 2023 No acute Oncology issues but may increased risk for infection Code status: Full code DVT prophylaxis: Heparin subQ [facility] 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 Attestation of HP only, care immediately directed to hospitalist team - Hypovolemia. Targeted vol ressestation with LR - Steroids, nebs, singular - Mallory Patient seen through remote audiovisual assessment through HIPAA compliant setup. All labs, flowsheets, and images reviewed. Date of Service: Feb 20, 2025 Billing Provider: JAMEEL NUÑEZ Jr. DO KAVITA BEST, RES Feb 20, 2025 00:30 JAMEEL NUÑEZ Jr., DO Feb 20, 2025 03:55
[2025-02-20] MEDS: sodium chloride 0.45% 1,000 ML IV SCH (00:50)
[2025-02-20 00:51] LABS: HEMOGLOBIN A1C 5.7 % (4.5-6.2)
[2025-02-20] MEDS: methylPREDNISolone sod succ 125mg/2ml vial IV ONE (01:36)
[2025-02-20] MEDS ORDERED: TRAZ-251 PO (02:30)
[2025-02-20] MEDS ORDERED: ACET-1 PO (02:30)
[2025-02-20] MEDS ORDERED: CETI10TA14 PO (02:30)
[2025-02-20] MEDS ORDERED: FLUT16SP26 (02:30)
[2025-02-20] MEDS ORDERED: AMLO5TAB16 PO (02:30)
[2025-02-20] MEDS ORDERED: DONE10TA44 PO (02:30)
[2025-02-20] MEDS ORDERED: APIX5TAB3 PO (02:30)
[2025-02-20] MEDS: ipratropium/albuterol 3ml nebule NEB SCH (03:22)
[2025-02-20] MEDS: heparin, porcine 5000 units/ml vial SQ SCH (07:13)
[2025-02-20] MEDS: methylPREDNISolone sod succ 125mg/2ml vial IV SCH (07:13)
[2025-02-20] MEDS: acetaminophen 325mg tablet PO PRN (07:18)
[2025-02-20] MEDS ORDERED: apixaban 5mg tablet PO SCH ×2 (08:00→20:00)
[2025-02-20] MEDS: K and/or MAG REPLACEMENT MC SCH (08:00)
[2025-02-20] MEDS ORDERED: traMADol 50MG tablet PO SCH (08:00)
[2025-02-20] MEDS: donepezil 5mg tablet PO SCH (08:04)
[2025-02-20] MEDS: traMADol 50MG tablet PO SCH (08:04)
[2025-02-20] MEDS: memantine 5mg tablet PO SCH (08:04)
[2025-02-20] MEDS: amLODIPine 5mg tablet PO SCH (08:07)
[2025-02-20] MEDS: lisinopril 20mg tablet PO SCH (08:09)
[2025-02-20] MEDS: atorvastatin 20mg tablet PO SCH (08:09)
[2025-02-20] MEDS: HYDROchlorothiazide 12.5mg capsule PO SCH (08:09)
[2025-02-20] MEDS: fluticasone nasal spray 16GM bottle NS SCH (10:46)
[2025-02-20 16:55] LABS: BILIRUBIN,URINE NEGATIVE (Neg); CLARITY,URINE SLIGHTLY CLOUDY (Clear); COLOR,URINE YELLOW (Yellow); GLUCOSE, URINE NEGATIVE (Neg); KETONES,URINE NEGATIVE (Neg); LEUKOCYTE ESTERASE ,URINE NEGATIVE (Neg); NITRITES, URINE NEGATIVE (Neg); OCCULT BLOOD,URINE MODERATE (Neg); PROTEIN,URINE 100 mg/dl (Neg); UROBILINOGEN,URINE 0.2 E.U/dL (0.2-1.0)
[2025-02-20 17:01] LABS: TOTAL PROTEIN,URINE RANDOM 168.2 MG/DL
[2025-02-20 17:19] LABS: UA COLLECTION TYPE NON-SPECIFIED
[2025-02-20 17:21] LABS: COARSE GRANULAR CAST >30 /LPF (NEGATIVE); HYALINE CASTS 0-3 /LPF (NEGATIVE); SQUAMOUS EPITHELIAL CELL,UR FEW /LPF (FEW)
[2025-02-20 17:22] LABS: AMORPHOUS URATES 1+; BACTERIA,URINE FEW /HPF (Neg); RBC,URINE 0-2 /HPF (0-2); TRANSITIONAL EPI CELLS,URINE FEW /HPF; WBC,URINE 0-4 /HPF (0-4)
--- NOTE | 2025-02-20 18:52 | CARDIOLOGY REPORT ---
APPROVED REPORT EXAM: Comprehensive 2D, Doppler, and color-flow Echocardiogram. Patient Location: [facility] Blood Pressure: 142/52 mmHg Heart Rate: 93 bpm Rhythm: Atrial Fibrillation Indications Congestive Heart Failure ProBNP: 1828 NO CONTACT CENTER ASSISTANT NO Previous ECHO 2D Dimensions LA Diam2.8 cm IVSd 1.1 (0.7-1.1cm) LVDd 3.6 cm PWd 0.9 (0.7-1.1cm) IVSs 1.6 (0.8-1.2cm) LVDs 2.3 (2.5-4.0cm) PWs 1.2 (0.8-1.2cm) LVOT Diameter 1.87 (1.8-2.4cm) LVEF(%) 67.4 (>50%) Ao Asc Diam.2.90 cm IVC 16.73 mmFS (%) 36.6 % SV 36.5 ml CO 3.2 L/min M-Mode Dimensions Left Atrium(MM) 3.44 (2.5-4.0cm) Aortic Root 3.42 (2.2-3.7cm) Aortic Cusp Exc 1.87 (1.5-2.0cm) MV EPSS 0.9 (<0.5cm) Aortic Valve AoV Peak Gray. 151.4 cm/s AoV VTI 28.4 cm AO Peak GR. 9.2 mmHg AO Mean GR. 5 mmHg LVOT VTI 25.61 cm LVOT Peak Gray. 121.5 cm/s JUDAH(VTI)/BSA 2.49 cm2/m2 JUDAH (VTI) 2.49 cm2 Tricuspid Valve TR P. Velocity 341 cm/s RAP ESTIMATE 10 mmHg TR Peak Gr. 47 mmHg RVSP 57 mmHg LEFT VENTRICLE Normal LV size and wall thickness. Overall systolic function is normal. LVEF is 65-70%. RIGHT VENTRICLE RV is normal size and function. Elevated right heart pressures as noted above. ATRIA The left atrium size is normal. AORTIC VALVE Trileaflet AV appears mildly sclerotic without stenosis. No insufficiency. MITRAL VALVE Mild mitral annular calcification without stenosis. Mild regurgitation. TRICUSPID VALVE The tricuspid valve is normal in structure with mild to moderate regurgitation. PULMONIC VALVE The pulmonary valve is normal in structure with physiologic insufficiency. GREAT VESSELS The aortic root is normal in size. The ascending aorta is normal in size. The IVC is normal in size a nd collapses >50% with inspiration. PERICARDIUM Normal pericardium. No effusion. Other Information Study Quality: Adequate Conclusion Normal LV size and wall thickness. Overall systolic function is normal. LVEF is 65-70%. RV is normal size and function. Elevated right heart pressures with an RVSP of 57 mmHg. The left atrium size is normal. Trileaflet AV appears mildly sclerotic without stenosis. No insufficiency. Mild mitral annular calcification without stenosis. Mild regurgitation. Normal pericardium. No effusion.
[2025-02-20] MEDS ORDERED: azithromycin/NS 500mg/250ml 250 ML IV SCH (21:00)
[2025-02-20] MEDS ORDERED: CefTRIAXone/D5W-Rocephin 1gm 50 ML IV SCH (22:00)
--- NOTE | 2025-02-24 17:09 | DISCHARGE SUMMARY ---
Discharge Summary Providers to ~ Discharge Summary Admission Diagnosis: COPD Exacerbation Hospital Course DATE OF ADMISSION: 02/20/25 DATE OF DISCHARGE: 02/20/2025. Patient left against medical advice. Discharge Diagnosis\Comment: Patient left against medical advice. Operations\Procedures: None Consultants: None Complications: Patient left against medical advice. Condition on DC: Unstable Discharge Summary: Patient left against medical advice. *Problems/Diagnosis: (1) Pneumonia Status: Acute Total Time Spent on D/C: Up to 30 Minutes Date of Service: Feb 20, 2025 Billing Provider: RYAN SAEZ MD Common Visit Codes: NOT BILLABLE ( Patient left against medical advice.) RYAN SAEZ MD Feb 24, 2025 17:09
== END 2025-02-20 19:29 | disposition left against medical advice (07) | DRG 871 ==
LOC: ER 20:48 → ORTHO 4S 02-20 00:18
PROVIDERS: ADMIT Internal Medicine Critical Care Medicine; ATTEND Family Medicine
DX: A41.9 Sepsis, unspecified organism (principal); J18.9 Pneumonia, unspecified organism; J96.01 Acute respiratory failure with hypoxia; N17.0 Acute kidney failure with tubular necrosis; N18.4 Chronic kidney disease, stage 4 (severe); E87.0 Hyperosmolality and hypernatremia; J44.0 Chronic obstructive pulmonary disease with (acute) lower respiratory infection; J44.1 Chronic obstructive pulmonary disease with (acute) exacerbation; Z20.822 Contact with and (suspected) exposure to COVID-19; Z53.21 Procedure and treatment not carried out due to patient leaving prior to being seen by health care provider; I12.9 Hypertensive chronic kidney disease with stage 1 through stage 4 chronic kidney disease, or unspecified chronic kidney disease; E78.5 Hyperlipidemia, unspecified; F17.210 Nicotine dependence, cigarettes, uncomplicated; F03.90 Unspecified dementia, unspecified severity, without behavioral disturbance, psychotic disturbance, mood disturbance, and anxiety; Z88.0 Allergy status to penicillin; Z85.51 Personal history of malignant neoplasm of bladder; Z92.3 Personal history of irradiation
CPT/HCPCS: 36415; 71046; 80048; 81001; 82570; 83036; 83605; 83880; 83930; 83935; 84145; 84156; 84300; 85007; 85025; 87040; 87081; 87811; 93005; 93306; 94640; 94760; 96365; 99285; A4615; G0378; J0456; J0696; J1644; J2919; J3490; J7030